=== PATIENT | female | born 1940 | race Caucasian/White ===

== ENCOUNTER 2025-07-24 09:00 | Outpatient (RCR) | payer MEDICARE, SELFPAY ==
[2025-05-27] VITALS (8 sets, daily range): BP systolic 129–150; BP diastolic 66–78; PULSE 73–100; RESP 16–20; TEMP 36.1–36.8; O2SAT 96–100
--- NOTE | 2025-05-27 15:50 | ONC.NURNOTE ---
Pt tolerated blood transfusion well, however once 1 hour monitoring after blood finished completed, pt began complaining of eye floaters. This would occur intermittently. Pt denies any eye problems in the past. BP slightly elevated SBP 140. Pt then observed for 30 min and recheck BP 150/69, HR 62. Pt states she feels okay. [employer] called and spoke to Apryl Cheema regarding symptoms. Pt is neurologically intact. Pt instructed to go to the ED this evening if symptoms worsen. Pt also instructed to call her opthalmologist if these symptoms persist. Pt and her daughter verbalized understanding of plan of care.
--- NOTE | 2025-06-15 08:52 | ONC.NURNOTE ---
Dx: normocytic anemia
[2025-06-25] VITALS (7 sets, daily range): BP systolic 123–151; BP diastolic 55–76; PULSE 75–81; RESP 16–18; TEMP 36.1–37.2; O2SAT 97–99
[2025-07-16] VITALS (7 sets, daily range): BP systolic 115–151; BP diastolic 65–83; PULSE 63–81; RESP 16–18; TEMP 35.8–36.6; O2SAT 96–100
[2025-07-16] MEDS: HEPARIN 500 UNIT/5 ML SYRINGE IVF (12:36)
[2025-07-16] MEDS: SODIUM CHLORIDE 0.9 % (FLUSH) 10 ML SYRINGE IVF (12:36)
[2025-07-23] MEDS: SODIUM CHLORIDE 0.9 % (FLUSH) 10 ML SYRINGE IVF (14:43)
[2025-07-23] MEDS: HEPARIN 500 UNIT/5 ML SYRINGE IVF (14:43)
[2025-07-24] VITALS (10 sets, daily range): BP systolic 115–154; BP diastolic 55–76; PULSE 70–96; RESP 16; TEMP 36.2–37.1; O2SAT 97–99
[2025-07-24] MEDS: 0.9 % SODIUM CHLORIDE 500 ML 250 ML IV (10:00)
[2025-07-24] MEDS: HEPARIN 500 UNIT/5 ML SYRINGE IVF (13:45)
[2025-07-24] MEDS: SODIUM CHLORIDE 0.9 % (FLUSH) 10 ML SYRINGE IVF (13:45)
== END 2025-11-22 23:59 | disposition home or self-care (01) ==
LOC: CCIC 09:00
PROVIDERS: PCP Family Medicine; Referring Provider Internal Medicine Hematology & Oncology; Visit Provider Clinical Nurse Specialist
DX: D64.9 Anemia, unspecified (principal)
CPT/HCPCS: 36415; 36430; 36591; 86850; 86900; 86901; 86922; J1642; J7030; P9016; P9073

== ENCOUNTER 2025-08-07 10:05 | Emergency (ER) | payer MEDICARE, SELFPAY ==
--- OUTSIDE RECORDS SUMMARY | 2025-07-02 07:43 | XMS_ITS | Encounter Summary ---
Author Organization [facility] Address [address] [place] [id number] Care Team Providers Care Needle Loom Weaver Name Role Phone Lara Colbert MD Primary Care Provider [phone] Lara Colbert MD Unavailable [phone] Henry Pratt MD Unavailable Henry Pratt MD Unavailable Reason for Referral * Therapeutic Imaging/IR (Priority: 1-2 Weeks) - Closed Specialty Diagnoses / Procedures Referred By Linda beltre Referred To Contact Radiology. Diagnoses Unclassifiable myelodysplastic syndrome (H) Procedures IR Chest Port Placement > 5 Yrs of Age IR Referral Ulysses Bahena MD [facility] [address] [facility] [address] [place] [address] Phone: tel: fax: [facility] [address] [place] [address] Phone: tel: fax: Referral ID Status Reason Start Date Expiration Date Visits Re quested Visits Authorized [id number] Closed 06/29/2025 06/29/2026 1 1 Reason for Visit * Auth/Cert Specialty Diagnoses / Procedures Referred By Contac t Referred To Contact Radiology. Diagnoses n/a Procedures IR Chest Port Placement > 5 Yrs of Age Mando Mosher MD [facility] [address] [place] [address] Phone: tel: fax: [facility] [address] [place] [address] Phone: tel: fax: Referral ID Status Reason Start Date Expiration Date Visits Re quested Visits Authorized [id number] Encounter Details Date Type Department Care Team (Late st Contact Info) Description 07/02/2025 7:43 AM CDT - 07/02/2025 9:49 AM CDT Hospital Encounter [facility] [address] [place] [address] aMndo Mosher MD [facility] [address] [facility] [address] [place] [address] Unclassifiable myelodysplastic syndrome (H) Discharge Disposition: Home or Self Care Social History Tobacco Use Types Packs/Day Years Used Date Smoking Tobacco: Never Passive Smoke Exposure: Never Smokeless Tobacco: Never Alcohol Use Standard Drinks/Week Comments Yes 0 (1 standard drink = 0.6 oz pur e alcohol) rarely AUDIT-C Answer Date Recorded Frequency of Alcohol Consumption Monthly or less 06/02/2019 Average Number of Drinks 1 or 2 019 Frequency of Binge Drinking Not on file 06/2019 Overall Financial Resource Strain (CARDIA) Answe r Date Recorded How hard is it for you to pa y for the very basics like food, housing, medical care, and heating? Not hard at all 12/08/2019 PHQ-2 Answer Date Recorded PHQ-2 Score 0 02/09/2025 Hunger Vital Sign Answer Date Recorded Within the past 12 months, y ou worried that your food would run out before you got the money to buy more. Never true 12/08/19 20 Within the past 12 months, t he food you bought just didn't last and you didn't have money to get more. Never true 12/08/2019 PRAPARE - Transportation Answer Date Re corded In the past 12 months, has l ack of transportation kept you from medical appointments or from getting medications? No 11/26 In the past 12 months, has l ack of transportation kept you from meetings, work, or from getting things needed for daily living? 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[employer] Gender Identity Not on file Sexual Orientation Not on file Occupation Industry Job Start Date Job End Date retired Not on file Not on file Not on file Not on file Not on file Not on file Not on file documented as of this encounter Last Filed Vital Signs Vital Sign Reading Time Taken Comments Blood Pressure 144/55 07/02/2025 9:44 AM CDT Pulse 82 07/02/2025 9:44 AM CDT Temperature 36.6 C (97.8 F) 07/02/2025 9:44 AM CDT Respiratory Rate 16 07/02/2025 9:44 AM CDT Oxygen Saturation 98% 07/02/2025 9:44 AM CDT Inhaled Oxygen Concentration - - Weight - - Height - - Body Mass Index - - documented in this encounter Discharge Instructions * Discharge Instructions* Cynthia Medel RN - 07/02/2025 8:03 AM CDT Going Home after Your Port Is Inserted Patient Name: Varsha Cui Today's Date: July 02, 2025 The doctor who inserted your port was: Dr. Dickinson at [facility]) Have your port site and/or neck wound checked on: Next appointment. Go to: Interventional Radiology Your port may be accessed right away. A nurse needs to flush your port every 30 days or after each use. When you get home: You should have an adult with you for the first 6 hours[address] or drinking alcohol until tomorrow. You may still have side effects from the medicine you received today (you may feel drowsy, unsteady or forgetful). You may go back to your regular diet today. If you take aspirin or Plavix, you may begin taking it again tomorrow. You may restart all other medicines today. Use pain medicine as directed. Avoid heavy lifting or the overuse of your shoulder for three days. Caring for the port site and/or neck wound: Keep the port site clean and dry. Cover the site with plastic before taking a shower. Do this untilthe site has healed. Keep the bandage on your port site for three days. Change it if it gets wet or dirty. After three days, you may use Band-Aids until the wound has healed. For a neck wound, leave the tape on for three days. You may cover it with a Band-Aid for comfort. If you have oozing or bleeding from the port site or from the cut in your neck: Put direct pressure on the wound for 5 to 10 minutes with a gauze pad. If you still have bleeding after 10 minutes, call your doctor. If you are bleeding a lot and can't control it with direct pressure, call 911. Call your doctor if you have: Bleeding from a wound after 10 minutes of direct pressure. Swelling in your neck or over your port site. Signs of infection: a fever over 100 F (37.8??C) under the tongue; the site is red, tender or draining. If you received IV medicine to sedate you: You were given: Versed and Fentanyl You may feel drowsy, forgetful or unsteady. For the next 24 hours, do not drive, drink alcohol or make any important decisions. documented in this encounter Medications at Time of Discharge acyclovir (ZOVIRAX) 400 MG tablet Take 400 mg by mouth 2 times daily. albuterol (PROAIR HFA/PROVENTIL HFA/VENTOLIN HFA) 108 (90 Base) MCG/ACT inhalerIndications:Shortn ess of breath Inhale 2 puffs into the lungs every 6 hours as needed for shortness of breath, wheezing or cough. 18 g 1 05/30/202 5 aspirin 81 MG EC tabletIndications:Other abnormal glucose Take 1 tablet (81 mg) by mouth daily 90 tablet 3 4 BIOTIN PO Take by mouth. blood glucose (CONTOUR NEXT TEST) test stripIndications:Type 2 diabetes mellitus without complication, without long-term current use of insulin (H) 1 strip by In Vitro route daily. Use to test blood sugar once times daily or as directed. 100 strip 3 5 blood glucose (NO BRAND SPECIFIED) lancets standardIndications:Type 2 diabetes mellitus without complication, without long-term current use of insulin (H) Use to test blood sugar 1 times daily or as directed. 100 each 3 2 Blood Glucose Monitoring Suppl (CONTOUR BLOOD GLUCOSE SYSTEM) w/Device KITIndications:Type 2 diabetes mellitus without complication, without long-term current use of insulin (H) 1 strip by In Vitro route daily 1 kit 9 calcium-vitamin D 500-125 MG-UNIT TABS Take 1 tablet by mouth daily fluticasone (FLOVENT HFA) 220 MCG/ACT inhalerIndications:Shortn ess of breath Inhale 1 puff into the lungs 2 times daily. 12 g 1 5 glucosamine-chondroitin 500-400 MG CAPS per capsule Take 1 capsule by mouth daily losartan (COZAAR) 25 MG tabletIndications:Dyspnea on exertion,Benign essential hypertension Take 1 tablet (25 mg) by mouth daily. 90 tablet 3 5 metFORMIN (GLUCOPHAGE) 500 MG tabletIndications:Type 2 diabetes mellitus without complication, without long-term current use of insulin (H) Take 1 tablet (500 mg) by mouth 2 times daily (with meals). 180 tablet 1 5 Multiple Vitamin (MULTI VITAMIN DAILY PO) Sennosides-Docusate Sodium (SENNA PLUS PO) Take by mouth. simvastatin (ZOCOR) 20 MG tabletIndications:Pure hypercholesterolemia TAKE 1/2 (ONE-HALF) TABLET BY MOUTH AT BEDTIME 45 tablet 1 5 documented as of this encounter Progress Notes * Alicia Gleason RN - 07/02/2025 9:49 AM CDT Post Procedure Summary: Prior to the start of the procedure and with procedural staff participation, I verbally confirmed the patient???s identity using two indicators, relevant allergies, that the procedure was appropriateand matched the consent or emergent situation, and that the correct equipment/implants were available. Immediately prior to starting the procedure I conducted the Time Out with the procedural staff and re-confirmed the patient???s name, procedure, and site/side. (The Joint Commission universal protocol was followed.) Yes Sedatives: Fentanyl and Midazolam (Versed) Vital signs, airway and pulse oximetry were monitored and remained stable throughout the procedure and sedation was maintained until the procedure was complete. The patient was monitored by staff until sedation discharge criteria were met. Patient tolerance: Patient tolerated the procedure well with no immediate complications. Time of sedation in minutes: 17 minutes from beginning to end of physician one to one monitoring. 1.5 mg versedn and 50 mcg fentanyl given * Kel Bassett ARRT - 07/02/2025 9:32 AM CDT Procedure Port Placement Versed 1.5 mg Fentanyl 50 mcg Sedation time 17 min Other meds 2g Ancef 1% Lidocaine 10 ml 1% Lido with Epi 10 ml Fluoro time 0.5 min AK 4 mGy documented in this encounter Miscellaneous Notes * IR Note - Mando Mosher MD - 07/02/2025 8:27 AM CDT Interventional Radiology Pre-Procedure Sedation Assessment Time of Assessment: 8:27 AM Expected Level: Moderate Sedation Indication: Sedation is required for the following type of Procedure: Venous Access Sedation and procedural consent: Risks, benefits and alternatives were discussed with Patient PO Intake: Appropriately NPO for procedure ASA Class: Class 2 - MILD SYSTEMIC DISEASE, NO ACUTE PROBLEMS, NO FUNCTIONAL LIMITATIONS. Mallampati: Grade 3: Soft palate visible, posterior pharyngeal wall not visible Lungs: Lungs Clear with good breath sounds bilaterally Heart: Normal heart sounds and rate History and physical reviewed and no updates needed. I have reviewed the lab findings, diagnostic data, medications, and the plan for sedation. I have determined this patient to be an appropriate candidate for the planned sedation and procedure and have reassessed the patient IMMEDIATELY PRIOR to sedation and procedure. Mando Mosher MD documented in this encounter Plan of Treatment Not on file documented as of this encounter Procedures Procedure Name Priority Date/Time Associated Diagnosis Comments IR CHEST PORT PLACEMENT > 5 YRS OF AGE Priority: 1-2 Weeks 07/02/2025 9:40 AM CDT Unclassifiable myelodysplastic syndrome (H) RBC AND PLATELET MORPHOLOGY STAT 07/02/2025 8:17 AM CDT CBC WITH PLATELETS (LIMITED OCCURRENCES) STAT 07/02/2025 8:17 AM CDT documented in this encounter Results * IR Chest Port Placement > 5 Yrs of Age (07/02/2025 9:40 AM CDT) Anatomical Region Laterality Modality Chest Radio Fluoroscop y, Radio Fluoroscopy 07/02/2025 9:40 AM CDT Impressions 07/02/2025 12:31 PM CDT IMPRESSION: Successful placement of right internal jugular Smart port and catheter. The port is ready for immediate use. Narrative 07/02/2025 12:31 PM CDT PORT PLACEMENT INDICATION: Chronic intravenous access required for drug infusion. LOCATION: Right internal jugular vein. PROCEDURE: Ultrasound was used to localize and document patency of the internal jugular vein. A permanent image of the vein was recorded. Local anesthesia was administered to the skin over the vein and a 4 mm incision was made. Ultrasound was used to place a 6F peel-away sheath in the vein using standard technique. Lidocaine was then administered in the subcutaneous tissue over the clavicle to a point about 5 cm below the midclavicle. A transverse 2 cm long incision was made at this point. Blunt dissection was carried out to create a small subcutaneous pocket cephalad to the incision. The 6F port catheter was brought through the tract between the two incisions and trimmed to appropriate length. The catheter was attached to the port and the port was brought into the pocket. The pocket was flushed with antibiotic solution. The catheter was then inserted into the superior vena cava through the jugular sheath. It was adjusted so that it lay well with no kinking. The port was flushed with heparinized solution. The port incision was closed with interrupted 3-0 Vicryl and Dermabond adhesive. The neck incision was closed with adhesive. Dressings were applied. Complications: None. Sedation: A moderate level of sedation was achieved with 1.5 mg midazolam 50 mcg fentanyl. Vital signs and sedation monitored by our nursing staff under my supervision. Sedation time: 17 minutes. Fluoroscopy time: 0.5 minutes. Air Kerma: 4 mGy. Contrast given: None. Local anesthetic: 10 mL of 1% lidocaine and 10 mL of 1% lidocaine with epinephrine administered without complication. FINDINGS: Fluoroscopic guidance with a permanent image confirmed the port catheter tip location is at the right atrial/SVC junction, confirmed with single spot fluoroscopic image. Procedure Note Mando Mosher MD - 07/02/2025 PORT PLACEMENT INDICATION: Chronic intravenous access required for drug infusion. LOCATION: Right internal jugular vein. PROCEDURE: Ultrasound was used to localize and document patency of theinternal jugular vein. A permanent image of the vein was recorded. Localanesthesia was administered to the skin over the vein and a 4 mm incisionwas made. Ultrasound was used to place a 6F peel-away sheath in the vein using standard technique. Lidocaine was then administered in the subcutaneous tissue over theclavicle to a point about 5 cm below the midclavicle. A transverse 2 cmlong incision was made at this point. Blunt dissection was carried out tocreate a small subcutaneous pocket cephalad to the incision. The 6F port catheter was brought through thetract between the two incisions and trimmed to appropriate length. Thecatheter was attached to the port and [facility] The pocket was flushed with antibiotic solution. The catheter was then inserted into the superior vena cava through thejugular sheath. It was adjusted so that it lay well with no kinking. Theport was flushed with heparinized solution. The port incision was closedwith interrupted 3-0 Vicryl and Dermabond adhesive. The neck incision was closed with adhesive.Dressings were applied. Complications: None. Sedation: A moderate level of sedation was achieved with 1.5 mg mcg fentanyl. Vital signs and sedation monitored by our nursing staff under mysupervision. Sedation time: 17 minutes. Fluoroscopy time: 0.5 minutes. Air Kerma: 4 mGy. Contrast given: None. Local anesthetic: 10 mL of 1% lidocaine and 10 mL of 1% lidocaine withepinephrine administered without complication. FINDINGS: Fluoroscopic guidance with a permanent image confirmed the portcatheter tip location is at the right atrial/SVC junction, confirmed withsingle spot fluoroscopic image. IMPRESSION: Successful placement of right internal jugular Smart port andcatheter. The port is ready for immediate use. Ulysses Bahena MD IMG IR ORDERABLES Final Re sult * (ABNORMAL) RBC and Platelet Morphology (07/02/2025 8:17 AM CDT) RBC Morphology Confirmed RBC Indices 07/02/2025 8:53 AM CDT [facility] Platelet Assessment Automated Count Confirmed. Platelet morphology is normal. Automated Count Confirmed. Platelet morphology is normal. TAMMI 07/02/2025 8:53 AM CDT [facility] Elliptocytes Slight(A) None Seen TAMMI 07/02/2025 8:53 AM CDT [facility] Teardrop Cells Slight(A) None Seen TAMMI 07/02/2025 8:53 AM CDT [facility] Blood BLOOD SPECIMEN / Unknown Venipuncture / Unknown 07/02/2025 8:17 AM CDT 07/02/2025 8:21 AM CDT Lisa Cazares [facility] [employer] TENDER SENIOR MEDIA DIRECTOR LAB - BLOOD OR DERABLES Final Result [facility] [address] [facility] Lab (1st floor, no room number) [place] [address], [facility] * (ABNORMAL) CBC with Platelets (Limited Occurrences) (07/02/2025 8:17 AM CDT) WBC Count 2.1(L) 4.0 - 11.0 10e3/uL 07/02/2025 8:53 AM CDT [facility] RBC Count 3.36(L) 3.80 - 5.20 10e6/uL 07/02/2025 8:53 AM CDT [facility] Hemoglobin 8.3(L) 11.7 - 15.7 g/dL 07/02/2025 8:53 AM CDT [facility] Hematocrit 25.9(L) 35.0 - 47.0 % 07/02/2025 8:53 AM CDT [facility] MCV 77(L) 78 - 100 fL 07/02/2025 8:53 AM CDT [facility] MCH 24.7(L) 26.5 - 33.0 pg 07/02/2025 8:53 AM CDT [facility] MCHC 32.0 31.5 - 36.5 g/dL 07/02/2025 8:53 AM CDT [facility] RDW 07/02/2025 8:53 AM CDT [facility] Comment:Dimorphic Population -Unable to Calculate Platelet Count 112(L) 150 - 450 10e3/uL 07/02/2025 8:53 AM CDT [facility] Blood BLOOD SPECIMEN / Unknown Venipuncture / Unknown 07/02/2025 8:17 AM CDT 07/02/2025 8:21 AM CDT [facility] [employer] TENDER SENIOR MEDIA DIRECTOR LAB - BLOOD OR DERABLES Final Result LABORATORY [facility] [address] Lab (1st floor, no room number) [place] [address], [facility] documented in this encounter Visit Diagnoses Diagnosis Unclassifiable myelodysplastic syndrome (H) documented in this encounter Administered Medications Inactive Administered Medications - up to 3 most recent administrations Medication Order MAR Action Action Date Dose Rate Site acetaminophen (TYLENOL) tablet 650 mg 650 mg, Oral, ONCE PRN, mild pain, Starting on Lucrecia 07/02/25 at 0942, Maximum acetaminophen dose from all sources = 75 mg/kg/day not to exceed 4 grams/day. ceFAZolin (ANCEF) 2 g in dextrose 50 mL intermittent infusion Routine, 2 g, Intravenous, PRE-OP/PRE-PROCEDURE, Starting on Lucrecia 07/02/25 at 0814, For 1 dose, Give dose within 1 hour PRIOR to procedure. If patient weight is greater than or equal to 120 kg change dose to 3 g., Indications: Perioperative Pharmacoprophylaxis, IR Pre-procedureIndications:Perioperat delma Pharmacoprophylaxis $New Bag 07/02/2025 8:52 AM CDT 2 g fentaNYL (PF) (SUBLIMAZE) injection 25-50 mcg 25-50 mcg, Intravenous, EVERY 5 MIN PRN, severe pain, If inadequate response may repeat 25 mcg IV slowly every 5 min PRN severe pain; when verbally requested by provider., Administer over 2 Minutes, Starting on [facility] 07/02/25 at 0814, Doses can be exceeded under direct oversight of patient by physician., IR Intra-procedure fentaNYL (PF) (SUBLIMAZE) injection 25-50 mcg 25-50 mcg, Intravenous, EVERY 5 MIN PRN, severe pain, If inadequate response may repeat 25 mcg IV slowly every 5 min PRN severe pain; when verbally requested by provider., Administer over 2 Minutes, Starting on [facility] 07/02/25 at 0828, Doses can be exceeded under direct oversight of patient by physician., IR Intra-procedure $Given 07/02/2025 9:20 AM CDT 25 mcg $Given 07/02/2025 9:16 AM CDT 25 mcg flumazenil (ROMAZICON) injection 0.2 mg 0.2 mg, Intravenous, EVERY 1 MIN PRN, benzodiazepine reversal, If inadequate response after 45 seconds, may repeat 0.2 mg IV every 1 minute PRN oversedation., Administer over 1 Minutes, Starting on [facility] 07/02/25 at 0814, Give over 15 seconds. Maximum total dose of 1 mg. Continue monitoring until discharge criteria met for a minimum of 2 hours. Use with caution in patients on benzodiazepine therapy., IR Intra-procedure flumazenil (ROMAZICON) injection 0.2 mg 0.2 mg, Intravenous, EVERY 1 MIN PRN, benzodiazepine reversal, If inadequate response after 45 seconds, may repeat 0.2 mg IV every 1 minute PRN oversedation., Administer over 1 Minutes, Starting on [facility] 07/02/25 at 0828, Give over 15 seconds. Maximum total dose of 1 mg. Continue monitoring until discharge criteria met for a minimum of 2 hours. Use with caution in patients on benzodiazepine therapy., IR Intra-procedure lidocaine 1 % 1-30 mL 1-30 mL, Intradermal, ONCE PRN, local anesthetic. When verbally ordered by prescriber during the procedure., Starting on Lucrecia 07/02/25 at 0814, For 1 dose, Dose to be divided into smaller volumes appropriate for the procedure. Provider to administer intradermally., IR Intra-procedure $Given 07/02/2025 9:31 AM CDT 10 mLs lidocaine 1 % 1-30 mL 1-30 mL, Intradermal, ONCE PRN, local anesthetic. When verbally ordered by prescriber during the procedure., Starting on Lucrecia 07/02/25 at 0828, For 1 dose, Dose to be divided into smaller volumes appropriate for the procedure. Provider to administer intradermally., IR Intra-procedure lidocaine 1% with EPINEPHrine 1:100,000 injection PRN, Starting on [facility] 07/02/25 at 0931, Anesthesia Intra-op $Given 07/02/2025 9:31 AM CDT 10 mLs midazolam (VERSED) injection 0.5-2 mg 0.5-2 mg, Intravenous, Administer over 1 Minutes, EVERY 4 MIN PRN, sedation, If inadequate response may repeat 0.5 mg IV slowly every 4 minutes PRN sedation until desired response; when verbally requested by provider., Starting on [facility]crecia 07/02/25 at 0814, Doses can be exceeded under direct oversight of patient by physician. This drug may cause significant respiratory depression. Monitor respiratory status and vital signs carefully for 1 hour after each dose., IR Intra-procedure midazolam (VERSED) injection 0.5-2 mg 0.5-2 mg, Intravenous, Administer over 1 Minutes, EVERY 4 MIN PRN, sedation, If inadequate response may repeat 0.5 mg IV slowly every 4 minutes PRN sedation until desired response; when verbally requested by provider., Starting on Lucrecia 07/02/25 at 0828, Doses can be exceeded under direct oversight of patient by physician. This drug may cause significant respiratory depression. Monitor respiratory status and vital signs carefully for 1 hour after each dose., IR Intra-procedure $Given 07/02/2025 9:16 AM CDT 1.5 mg naloxone (NARCAN) injection 0.2 mg 0.2 mg, Intravenous, EVERY 2 MIN PRN, opioid reversal, Starting on [facility] 07/02/25 at 0814, Administer intravenous route when available and notify provider when administered. For unintended sedation or respiratory depression if all of the below criteria are met: ~ respiratory rate LESS than or EQUAL to 8. ~SaO2 less than 92% and or/end-tidal CO2 is greater than 50. ~ the patient is receiving an opioid, has unintended sedations assessed as RASS (-3), and is currently not on mechanical ventilation. RASS scale moderate (-3) is movement or eye opening to voice but no eye contact. Patient Monitoring Once the patient has demonstrated a response to the naloxone, continue to monitor respiratory rate, depth, oxygen saturation and end-tidal CO2 (if available) every 15 minutes x 2, then every 30 minutes x 2, then every 1 hour x 1 after each naloxone dose. Consider transfer to ICU if patient respiratory parameters have not improved after 4 naloxone doses., IR Intra-procedure naloxone (NARCAN) injection 0.2 mg 0.2 mg, Intramuscular, EVERY 2 MIN PRN, opioid reversal, Starting on [facility]crecia 07/02/25 at 0814, Administer intramuscular if an intravenous route is not available and notify provider when administered. For unintended sedation or respiratory depression if all of the below criteria are met: ~ respiratory rate LESS than or EQUAL to 8. ~SaO2 less than 92% and or/end-tidal CO2 is greater than 50. ~ the patient is receiving an opioid, has unintended sedations assessed as RASS (-3), and is currently not on mechanical ventilation. RASS scale moderate (-3) is movement or eye opening to voice but no eye contact. Patient Monitoring Once the patient has demonstrated a response to the naloxone, continue to monitor respiratory rate, depth, oxygen saturation and end-tidal CO2 (if available) every 15 minutes x 2, then every 30 minutes x 2, then every 1 hour x 1 after each naloxone dose. Consider transfer to ICU if patient respiratory parameters have not improved after 4 naloxone doses., IR Intra-procedure naloxone (NARCAN) injection 0.2 mg 0.2 mg, Intravenous, EVERY 2 MIN PRN, opioid reversal, Starting on [facility] 07/02/25 at 0828, Administer intravenous route when available and notify provider when administered. For unintended sedation or respiratory depression if all of the below criteria are met: ~ respiratory rate LESS than or EQUAL to 8. ~SaO2 less than 92% and or/end-tidal CO2 is greater than 50. ~ the patient is receiving an opioid, has unintended sedations assessed as RASS (-3), and is currently not on mechanical ventilation. RASS scale moderate (-3) is movement or eye opening to voice but no eye contact. Patient Monitoring Once the patient has demonstrated a response to the naloxone, continue to monitor respiratory rate, depth, oxygen saturation and end-tidal CO2 (if available) every 15 minutes x 2, then every 30 minutes x 2, then every 1 hour x 1 after each naloxone dose. Consider transfer to ICU if patient respiratory parameters have not improved after 4 naloxone doses., IR Intra-procedure naloxone (NARCAN) injection 0.2 mg 0.2 mg, Intramuscular, EVERY 2 MIN PRN, opioid reversal, Starting on [facility] 07/02/25 at 0828, Administer intramuscular if an intravenous route is not available and notify provider when administered. For unintended sedation or respiratory depression if all of the below criteria are met: ~ respiratory rate LESS than or EQUAL to 8. ~SaO2 less than 92% and or/end-tidal CO2 is greater than 50. ~ the patient is receiving an opioid, has unintended sedations assessed as RASS (-3), and is currently not on mechanical ventilation. RASS scale moderate (-3) is movement or eye opening to voice but no eye contact. Patient Monitoring Once the patient has demonstrated a response to the naloxone, continue to monitor respiratory rate, depth, oxygen saturation and end-tidal CO2 (if available) every 15 minutes x 2, then every 30 minutes x 2, then every 1 hour x 1 after each naloxone dose. Consider transfer to ICU if patient respiratory parameters have not improved after 4 naloxone doses., IR Intra-procedure naloxone (NARCAN) injection 0.4 mg 0.4 mg, Intravenous, EVERY 2 MIN PRN, opioid reversal, Starting on [facility] 07/02/25 at 0814, Administer intravenous route when available and notify provider when administered. For unintended sedation or respiratory depression if all of the below criteria are met: ~ respiratory rate LESS than or EQUAL to 8. ~ SaO2 less than 92% and or/end-tidal CO2 is greater than 50. ~ the patient is receiving an opioid, has unintended sedation assessed as RASS (-4) or (-5) and patient is currently not on mechanical ventilation. RASS scale (-4) is deep sedation with no response to voice but movement or eye opening to physical stimulation. RASS scale (-5) is unarousable. Patient Monitoring Once the patient has demonstrated a response to the naloxone, continue to monitor respiratory rate, depth, oxygen saturation and end-tidal CO2 (if available) every 15 minutes x 2, then every 30 minutes x 2, then every 1 hour x 1 after each naloxone dose. Consider transfer to ICU if patient respiratory parameters have not improved after 4 naloxone doses., IR Intra-procedure naloxone (NARCAN) injection 0.4 mg 0.4 mg, Intramuscular, EVERY 2 MIN PRN, opioid reversal, Starting on [facility] 07/02/25 at 0814, Administer intramuscular if an intravenous route is not available and notify provider when administered. For unintended sedation or respiratory depression if all of the below criteria are met: ~ respiratory rate LESS than or EQUAL to 8. ~ SaO2 less than 92% and or/end-tidal CO2 is greater than 50. ~ the patient is receiving an opioid, has unintended sedation assessed as RASS (-4) or (-5) and patient is currently not on mechanical ventilation. RASS scale (-4) is deep sedation with no response to voice but movement or eye opening to physical stimulation. RASS scale (-5) is unarousable. Patient Monitoring Once the patient has demonstrated a response to the naloxone, continue to monitor respiratory rate, depth, oxygen saturation and end-tidal CO2 (if available) every 15 minutes x 2, then every 30 minutes x 2, then every 1 hour x 1 after each naloxone dose. Consider transfer to ICU if patient respiratory parameters have not improved after 4 naloxone doses., IR Intra-procedure naloxone (NARCAN) injection 0.4 mg 0.4 mg, Intravenous, EVERY 2 MIN PRN, opioid reversal, Starting on [facility] 07/02/25 at 0828, Administer intravenous route when available and notify provider when administered. For unintended sedation or respiratory depression if all of the below criteria are met: ~ respiratory rate LESS than or EQUAL to 8. ~ SaO2 less than 92% and or/end-tidal CO2 is greater than 50. ~ the patient is receiving an opioid, has unintended sedation assessed as RASS (-4) or (-5) and patient is currently not on mechanical ventilation. RASS scale (-4) is deep sedation with no response to voice but movement or eye opening to physical stimulation. RASS scale (-5) is unarousable. Patient Monitoring Once the patient has demonstrated a response to the naloxone, continue to monitor respiratory rate, depth, oxygen saturation and end-tidal CO2 (if available) every 15 minutes x 2, then every 30 minutes x 2, then every 1 hour x 1 after each naloxone dose. Consider transfer to ICU if patient respiratory parameters have not improved after 4 naloxone doses., IR Intra-procedure naloxone (NARCAN) injection 0.4 mg 0.4 mg, Intramuscular, EVERY 2 MIN PRN, opioid reversal, Starting on [facility] 07/02/25 at 0828, Administer intramuscular if an intravenous route is not available and notify provider when administered. For unintended sedation or respiratory depression if all of the below criteria are met: ~ respiratory rate LESS than or EQUAL to 8. ~ SaO2 less than 92% and or/end-tidal CO2 is greater than 50. ~ the patient is receiving an opioid, has unintended sedation assessed as RASS (-4) or (-5) and patient is currently not on mechanical ventilation. RASS scale (-4) is deep sedation with no response to voice but movement or eye opening to physical stimulation. RASS scale (-5) is unarousable. Patient Monitoring Once the patient has demonstrated a response to the naloxone, continue to monitor respiratory rate, depth, oxygen saturation and end-tidal CO2 (if available) every 15 minutes x 2, then every 30 minutes x 2, then every 1 hour x 1 after each naloxone dose. Consider transfer to ICU if patient respiratory parameters have not improved after 4 naloxone doses., IR Intra-procedure ondansetron (ZOFRAN) injection 4 mg 4 mg, Intravenous, ONCE PRN, nausea/vomiting - 1st line, Administer over 2-5 Minutes, Starting on [facility] 07/02/25 at 0828, For 1 dose, IR Intra-procedure sodium chloride (PF) 0.9% PF flush 3 mL 3 mL, Intracatheter, EVERY 8 HOURS SCHEDULED, First dose on [facility] 07/02/25 at 1400, to lock peripheral IV dormant line, IR Pre-procedure sodium chloride (PF) 0.9% PF flush 3 mL 3 mL, Intracatheter, EVERY 1 MIN PRN, line flush, other, to ensure patency or to lock dormant line, Starting on [facility] 07/02/25 at 0814, IR Pre-procedure documented in this encounter Active and Recently Administered Medications Times are shown in CDT. Scheduled Medication Order 06/30/2025 07/01/2025 07/02/2025 ceFAZolin (ANCEF) 2 g in dextrose 50 mL intermittent infusion (COMPLETED) Routine, 2 g, Intravenous, PRE-OP/PRE-PROCEDURE, Starting on [facility] 07/02/25 at 0814, For 1 dose, Give dose within 1 hour PRIOR to procedure. If patient weight is greater than or equal to 120 kg change dose to 3 g., Indications: Perioperative Pharmacoprophylaxis, IR Pre-procedure 0852 ($New Bag - Pro vider: Alicia Gleason RN) heparin lock flush 100 unit/mL injection 5 mL 5 mL, Intracatheter, ONCE, On [facility] 07/02/25 at 0930, For 1 dose, [place] [facility]OCK - IR 0930 (Canceled Entry - Provider: Orders Generic Provider - Comment: Automatically canceled at discontinue of medication order) sodium chloride (PF) 0.9% PF flush 3 mL 3 mL, Intracatheter, EVERY 8 HOURS SCHEDULED, First dose on [facility] 07/02/25 at 1400, to lock peripheral IV dormant line, IR Pre-procedure 1400 (Canceled Entry - Provider: Orders Generic Provider - Comment: Automatically canceled at discontinue of medication order)2200 (Canceled Entry - Provider: Orders Generic Provider - Comment: Automatically canceled at discontinue of medication order) PRN Medication Order 06/30/2025 07/01/2025 07/02/2025 acetaminophen (TYLENOL) tablet 650 mg 650 mg, Oral, ONCE PRN, mild pain, Starting on [facility] 07/02/25 at 0942, Maximum acetaminophen dose from all sources = 75 mg/kg/day not to exceed 4 grams/day. fentaNYL (PF) (SUBLIMAZE) injection 25-50 mcg 25-50 mcg, Intravenous, EVERY 5 MIN PRN, severe pain, If inadequate response may repeat 25 mcg IV slowly every 5 min PRN severe pain; when verbally requested by provider., Administer over 2 Minutes, Starting on [facility] 07/02/25 at 0814, Doses can be exceeded under direct oversight of patient by physician., IR Intra-procedure fentaNYL (PF) (SUBLIMAZE) injection 25-50 mcg 25-50 mcg, Intravenous, EVERY 5 MIN PRN, severe pain, If inadequate response may repeat 25 mcg IV slowly every 5 min PRN severe pain; when verbally requested by provider., Administer over 2 Minutes, Starting on [facility] 07/02/25 at 0828, Doses can be exceeded under direct oversight of patient by physician., IR Intra-procedure 0916 ($Given - Provi afshan: Alicia Gleason RN)0920 ($Given - Provider: Alicia Gleason RN) flumazenil (ROMAZICON) injection 0.2 mg 0.2 mg, Intravenous, EVERY 1 MIN PRN, benzodiazepine reversal, If inadequate response after 45 seconds, may repeat 0.2 mg IV every 1 minute PRN oversedation., Administer over 1 Minutes, Starting on [facility] 07/02/25 at 0814, Give over 15 seconds. Maximum total dose of 1 mg. Continue monitoring until discharge criteria met for a minimum of 2 hours. Use with caution in patients on benzodiazepine therapy., IR Intra-procedure flumazenil (ROMAZICON) injection 0.2 mg 0.2 mg, Intravenous, EVERY 1 MIN PRN, benzodiazepine reversal, If inadequate response after 45 seconds, may repeat 0.2 mg IV every 1 minute PRN oversedation., Administer over 1 Minutes, Starting on [facility] 07/02/25 at 0828, Give over 15 seconds. Maximum total dose of 1 mg. Continue monitoring until discharge criteria met for a minimum of 2 hours. Use with caution in patients on benzodiazepine therapy., IR Intra-procedure lidocaine 1 % 1-30 mL (COMPLETED) 1-30 mL, Intradermal, ONCE PRN, local anesthetic. When verbally ordered by prescriber during the procedure., Starting on [facility] 07/02/25 at 0814, For 1 dose, Dose to be divided into smaller volumes appropriate for the procedure. Provider to administer intradermally., IR Intra-procedure 0931 ($Given - Provi afshan: Alicia Gleason RN) lidocaine 1 % 1-30 mL 1-30 mL, Intradermal, ONCE PRN, local anesthetic. When verbally ordered by prescriber during the procedure., Starting on [facility] 07/02/25 at 0828, For 1 dose, Dose to be divided into smaller volumes appropriate for the procedure. Provider to administer intradermally., IR Intra-procedure lidocaine 1% with EPINEPHrine 1:100,000 injection PRN, Starting on [facility] 07/02/25 at 0931, Anesthesia Intra-op 0931 ($Given - Provi afshan: Mando Mosher MD - Comment: chest wall and neck right side) midazolam (VERSED) injection 0.5-2 mg 0.5-2 mg, Intravenous, Administer over 1 Minutes, EVERY 4 MIN PRN, sedation, If inadequate response may repeat 0.5 mg IV slowly every 4 minutes PRN sedation until desired response; when verbally requested by provider., Starting on [facility] 07/02/25 at 0814, Doses can be exceeded under direct oversight of patient by physician. This drug may cause significant respiratory depression. Monitor respiratory status and vital signs carefully for 1 hour after each dose., IR Intra-procedure midazolam (VERSED) injection 0.5-2 mg 0.5-2 mg, Intravenous, Administer over 1 Minutes, EVERY 4 MIN PRN, sedation, If inadequate response may repeat 0.5 mg IV slowly every 4 minutes PRN sedation until desired response; when verbally requested by provider., Starting on [facility] 07/02/25 at 0828, Doses can be exceeded under direct oversight of patient by physician. This drug may cause significant respiratory depression. Monitor respiratory status and vital signs carefully for 1 hour after each dose., IR Intra-procedure 0916 ($Given - Provi afshan: Alicia Gleason RN) naloxone (NARCAN) injection 0.2 mg(Linked Group 1) 0.2 mg, Intravenous, EVERY 2 MIN PRN, opioid reversal, Starting on [facility] 07/02/25 at 0814, Administer intravenous route when available and notify provider when administered. For unintended sedation or respiratory depression if all of the below criteria are met: ~ respiratory rate LESS than or EQUAL to 8. ~SaO2 less than 92% and or/end-tidal CO2 is greater than 50. ~ the patient is receiving an opioid, has unintended sedations assessed as RASS (-3), and is currently not on mechanical ventilation. RASS scale moderate (-3) is movement or eye opening to voice but no eye contact. Patient Monitoring Once the patient has demonstrated a response to the naloxone, continue to monitor respiratory rate, depth, oxygen saturation and end-tidal CO2 (if available) every 15 minutes x 2, then every 30 minutes x 2, then every 1 hour x 1 after each naloxone dose. Consider transfer to ICU if patient respiratory parameters have not improved after 4 naloxone doses., IR Intra-procedure naloxone (NARCAN) injection 0.2 mg(Linked Group 1) 0.2 mg, Intramuscular, EVERY 2 MIN PRN, opioid reversal, Starting on [facility] 07/02/25 at 0814, Administer intramuscular if an intravenous route is not available and notify provider when administered. For unintended sedation or respiratory depression if all of the below criteria are met: ~ respiratory rate LESS than or EQUAL to 8. ~SaO2 less than 92% and or/end-tidal CO2 is greater than 50. ~ the patient is receiving an opioid, has unintended sedations assessed as RASS (-3), and is currently not on mechanical ventilation. RASS scale moderate (-3) is movement or eye opening to voice but no eye contact. Patient Monitoring Once the patient has demonstrated a response to the naloxone, continue to monitor respiratory rate, depth, oxygen saturation and end-tidal CO2 (if available) every 15 minutes x 2, then every 30 minutes x 2, then every 1 hour x 1 after each naloxone dose. Consider transfer to ICU if patient respiratory parameters have not improved after 4 naloxone doses., IR Intra-procedure naloxone (NARCAN) injection 0.2 mg(Linked Group 2) 0.2 mg, Intravenous, EVERY 2 MIN PRN, opioid reversal, Starting on [facility] 07/02/25 at 0828, Administer intravenous route when available and notify provider when administered. For unintended sedation or respiratory depression if all of the below criteria are met: ~ respiratory rate LESS than or EQUAL to 8. ~SaO2 less than 92% and or/end-tidal CO2 is greater than 50. ~ the patient is receiving an opioid, has unintended sedations assessed as RASS (-3), and is currently not on mechanical ventilation. RASS scale moderate (-3) is movement or eye opening to voice but no eye contact. Patient Monitoring Once the patient has demonstrated a response to the naloxone, continue to monitor respiratory rate, depth, oxygen saturation and end-tidal CO2 (if available) every 15 minutes x 2, then every 30 minutes x 2, then every 1 hour x 1 after each naloxone dose. Consider transfer to ICU if patient respiratory parameters have not improved after 4 naloxone doses., IR Intra-procedure naloxone (NARCAN) injection 0.2 mg(Linked Group 2) 0.2 mg, Intramuscular, EVERY 2 MIN PRN, opioid reversal, Starting on [facility] 07/02/25 at 0828, Administer intramuscular if an intravenous route is not available and notify provider when administered. For unintended sedation or respiratory depression if all of the below criteria are met: ~ respiratory rate LESS than or EQUAL to 8. ~SaO2 less than 92% and or/end-tidal CO2 is greater than 50. ~ the patient is receiving an opioid, has unintended sedations assessed as RASS (-3), and is currently not on mechanical ventilation. RASS scale moderate (-3) is movement or eye opening to voice but no eye contact. Patient Monitoring Once the patient has demonstrated a response to the naloxone, continue to monitor respiratory rate, depth, oxygen saturation and end-tidal CO2 (if available) every 15 minutes x 2, then every 30 minutes x 2, then every 1 hour x 1 after each naloxone dose. Consider transfer to ICU if patient respiratory parameters have not improved after 4 naloxone doses., IR Intra-procedure naloxone (NARCAN) injection 0.4 mg(Linked Group 1) 0.4 mg, Intravenous, EVERY 2 MIN PRN, opioid reversal, Starting on [facility] 07/02/25 at 0814, Administer intravenous route when available and notify provider when administered. For unintended sedation or respiratory depression if all of the below criteria are met: ~ respiratory rate LESS than or EQUAL to 8. ~ SaO2 less than 92% and or/end-tidal CO2 is greater than 50. ~ the patient is receiving an opioid, has unintended sedation assessed as RASS (-4) or (-5) and patient is currently not on mechanical ventilation. RASS scale (-4) is deep sedation with no response to voice but movement or eye opening to physical stimulation. RASS scale (-5) is unarousable. Patient Monitoring Once the patient has demonstrated a response to the naloxone, continue to monitor respiratory rate, depth, oxygen saturation and end-tidal CO2 (if available) every 15 minutes x 2, then every 30 minutes x 2, then every 1 hour x 1 after each naloxone dose. Consider transfer to ICU if patient respiratory parameters have not improved after 4 naloxone doses., IR Intra-procedure naloxone (NARCAN) injection 0.4 mg(Linked Group 1) 0.4 mg, Intramuscular, EVERY 2 MIN PRN, opioid reversal, Starting on [facility] 07/02/25 at 0814, Administer intramuscular if an intravenous route is not available and notify provider when administered. For unintended sedation or respiratory depression if all of the below criteria are met: ~ respiratory rate LESS than or EQUAL to 8. ~ SaO2 less than 92% and or/end-tidal CO2 is greater than 50. ~ the patient is receiving an opioid, has unintended sedation assessed as RASS (-4) or (-5) and patient is currently not on mechanical ventilation. RASS scale (-4) is deep sedation with no response to voice but movement or eye opening to physical stimulation. RASS scale (-5) is unarousable. Patient Monitoring Once the patient has demonstrated a response to the naloxone, continue to monitor respiratory rate, depth, oxygen saturation and end-tidal CO2 (if available) every 15 minutes x 2, then every 30 minutes x 2, then every 1 hour x 1 after each naloxone dose. Consider transfer to ICU if patient respiratory parameters have not improved after 4 naloxone doses., IR Intra-procedure naloxone (NARCAN) injection 0.4 mg(Linked Group 2) 0.4 mg, Intravenous, EVERY 2 MIN PRN, opioid reversal, Starting on [facility] 07/02/25 at 0828, Administer intravenous route when available and notify provider when administered. For unintended sedation or respiratory depression if all of the below criteria are met: ~ respiratory rate LESS than or EQUAL to 8. ~ SaO2 less than 92% and or/end-tidal CO2 is greater than 50. ~ the patient is receiving an opioid, has unintended sedation assessed as RASS (-4) or (-5) and patient is currently not on mechanical ventilation. RASS scale (-4) is deep sedation with no response to voice but movement or eye opening to physical stimulation. RASS scale (-5) is unarousable. Patient Monitoring Once the patient has demonstrated a response to the naloxone, continue to monitor respiratory rate, depth, oxygen saturation and end-tidal CO2 (if available) every 15 minutes x 2, then every 30 minutes x 2, then every 1 hour x 1 after each naloxone dose. Consider transfer to ICU if patient respiratory parameters have not improved after 4 naloxone doses., IR Intra-procedure naloxone (NARCAN) injection 0.4 mg(Linked Group 2) 0.4 mg, Intramuscular, EVERY 2 MIN PRN, opioid reversal, Starting on [facility] 07/02/25 at 0828, Administer intramuscular if an intravenous route is not available and notify provider when administered. For unintended sedation or respiratory depression if all of the below criteria are met: ~ respiratory rate LESS than or EQUAL to 8. ~ SaO2 less than 92% and or/end-tidal CO2 is greater than 50. ~ the patient is receiving an opioid, has unintended sedation assessed as RASS (-4) or (-5) and patient is currently not on mechanical ventilation. RASS scale (-4) is deep sedation with no response to voice but movement or eye opening to physical stimulation. RASS scale (-5) is unarousable. Patient Monitoring Once the patient has demonstrated a response to the naloxone, continue to monitor respiratory rate, depth, oxygen saturation and end-tidal CO2 (if available) every 15 minutes x 2, then every 30 minutes x 2, then every 1 hour x 1 after each naloxone dose. Consider transfer to ICU if patient respiratory parameters have not improved after 4 naloxone doses., IR Intra-procedure ondansetron (ZOFRAN) injection 4 mg 4 mg, Intravenous, ONCE PRN, nausea/vomiting - 1st line, Administer over 2-5 Minutes, Starting on [facility] 07/02/25 at 0828, For 1 dose, IR Intra-procedure sodium chloride (PF) 0.9% PF flush 3 mL 3 mL, Intracatheter, EVERY 1 MIN PRN, line flush, other, to ensure patency or to lock dormant line, Starting on [facility] 07/02/25 at 0814, IR Pre-procedure Linked Groups Order Group 1: naloxone (NARCAN) injection 0.2 mgJump to med 0.2 mg, Intravenous, EVERY 2 MIN PRN, opioid reversal, Starting on [facility] 07/02/25 at 0814, Administer intravenous route when available and notify provider when administered. For unintended sedation or respiratory depression if all of the below criteria are met: ~ respiratory rate LESS than or EQUAL to 8. ~SaO2 less than 92% and or/end-tidal CO2 is greater than 50. ~ the patient is receiving an opioid, has unintended sedations assessed as RASS (-3), and is currently not on mechanical ventilation. RASS scale moderate (-3) is movement or eye opening to voice but no eye contact. Patient Monitoring Once the patient has demonstrated a response to the naloxone, continue to monitor respiratory rate, depth, oxygen saturation and end-tidal CO2 (if available) every 15 minutes x 2, then every 30 minutes x 2, then every 1 hour x 1 after each naloxone dose. Consider transfer to ICU if patient respiratory parameters have not improved after 4 naloxone doses., IR Intra- procedure Or naloxone (NARCAN) injection 0.4 mgJump to med 0.4 mg, Intravenous, EVERY 2 MIN PRN, opioid reversal, Starting on [facility] 07/02/25 at 0814, Administer intravenous route when available and notify provider when administered. For unintended sedation or respiratory depression if all of the below criteria are met: ~ respiratory rate LESS than or EQUAL to 8. ~ SaO2 less than 92% and or/end-tidal CO2 is greater than 50. ~ the patient is receiving an opioid, has unintended sedation assessed as RASS (-4) or (-5) and patient is currently not on mechanical ventilation. RASS scale (-4) is deep sedation with no response to voice but movement or eye opening to physical stimulation. RASS scale (-5) is unarousable. Patient Monitoring Once the patient has demonstrated a response to the naloxone, continue to monitor respiratory rate, depth, oxygen saturation and end-tidal CO2 (if available) every 15 minutes x 2, then every 30 minutes x 2, then every 1 hour x 1 after each naloxone dose. Consider transfer to ICU if patient respiratory parameters have not improved after 4 naloxone doses., IR Intra-procedure Or naloxone (NARCAN) injection 0.2 mgJump to med 0.2 mg, Intramuscular, EVERY 2 MIN PRN, opioid reversal, Starting on [facility] 07/02/25 at 0814, Administer intramuscular if an intravenous route is not available and notify provider when administered. For unintended sedation or respiratory depression if all of the below criteria are met: ~ respiratory rate LESS than or EQUAL to 8. ~SaO2 less than 92% and or/end-tidal CO2 is greater than 50. ~ the patient is receiving an opioid, has unintended sedations assessed as RASS (-3), and is currently not on mechanical ventilation. RASS scale moderate (-3) is movement or eye opening to voice but no eye contact. Patient Monitoring Once the patient has demonstrated a response to the naloxone, continue to monitor respiratory rate, depth, oxygen saturation and end-tidal CO2 (if available) every 15 minutes x 2, then every 30 minutes x 2, then every 1 hour x 1 after each naloxone dose. Consider transfer to ICU if patient respiratory parameters have not improved after 4 naloxone doses., IR Intra- procedure Or naloxone (NARCAN) injection 0.4 mgJump to med 0.4 mg, Intramuscular, EVERY 2 MIN PRN, opioid reversal, Starting on Lucrecia 07/02/25 at 0814, Administer intramuscular if an intravenous route is not available and notify provider when administered. For unintended sedation or respiratory depression if all of the below criteria are met: ~ respiratory rate LESS than or EQUAL to 8. ~ SaO2 less than 92% and or/end-tidal CO2 is greater than 50. ~ the patient is receiving an opioid, has unintended sedation assessed as RASS (-4) or (-5) and patient is currently not on mechanical ventilation. RASS scale (-4) is deep sedation with no response to voice but movement or eye opening to physical stimulation. RASS scale (-5) is unarousable. Patient Monitoring Once the patient has demonstrated a response to the naloxone, continue to monitor respiratory rate, depth, oxygen saturation and end-tidal CO2 (if available) every 15 minutes x 2, then every 30 minutes x 2, then every 1 hour x 1 after each naloxone dose. Consider transfer to ICU if patient respiratory parameters have not improved after 4 naloxone doses., IR Intra- procedure Group 2: naloxone (NARCAN) injection 0.2 mgJump to med 0.2 mg, Intravenous, EVERY 2 MIN PRN, opioid reversal, Starting on Lucrecia 07/02/25 at 0828, Administer intravenous route when available and notify provider when administered. For unintended sedation or respiratory depression if all of the below criteria are met: ~ respiratory rate LESS than or EQUAL to 8. ~SaO2 less than 92% and or/end-tidal CO2 is greater than 50. ~ the patient is receiving an opioid, has unintended sedations assessed as RASS (-3), and is currently not on mechanical ventilation. RASS scale moderate (-3) is movement or eye opening to voice but no eye contact. Patient Monitoring Once the patient has demonstrated a response to the naloxone, continue to monitor respiratory rate, depth, oxygen saturation and end-tidal CO2 (if available) every 15 minutes x 2, then every 30 minutes x 2, then every 1 hour x 1 after each naloxone dose. Consider transfer to ICU if patient respiratory parameters have not improved after 4 naloxone doses., IR Intra- procedure Or naloxone (NARCAN) injection 0.4 mgJump to med 0.4 mg, Intravenous, EVERY 2 MIN PRN, opioid reversal, Starting on Lucrecia 07/02/25 at 0828, Administer intravenous route when available and notify provider when administered. For unintended sedation or respiratory depression if all of the below criteria are met: ~ respiratory rate LESS than or EQUAL to 8. ~ SaO2 less than 92% and or/end-tidal CO2 is greater than 50. ~ the patient is receiving an opioid, has unintended sedation assessed as RASS (-4) or (-5) and patient is currently not on mechanical ventilation. RASS scale (-4) is deep sedation with no response to voice but movement or eye opening to physical stimulation. RASS scale (-5) is unarousable. Patient Monitoring Once the patient has demonstrated a response to the naloxone, continue to monitor respiratory rate, depth, oxygen saturation and end-tidal CO2 (if available) every 15 minutes x 2, then every 30 minutes x 2, then every 1 hour x 1 after each naloxone dose. Consider transfer to ICU if patient respiratory parameters have not improved after 4 naloxone doses., IR Intra-procedure Or naloxone (NARCAN) injection 0.2 mgJump to med 0.2 mg, Intramuscular, EVERY 2 MIN PRN, opioid reversal, Starting on Lucrecia 07/02/25 at 0828, Administer intramuscular if an intravenous route is not available and notify provider when administered. For unintended sedation or respiratory depression if all of the below criteria are met: ~ respiratory rate LESS than or EQUAL to 8. ~SaO2 less than 92% and or/end-tidal CO2 is greater than 50. ~ the patient is receiving an opioid, has unintended sedations assessed as RASS (-3), and is currently not on mechanical ventilation. RASS scale moderate (-3) is movement or eye opening to voice but no eye contact. Patient Monitoring Once the patient has demonstrated a response to the naloxone, continue to monitor respiratory rate, depth, oxygen saturation and end-tidal CO2 (if available) every 15 minutes x 2, then every 30 minutes x 2, then every 1 hour x 1 after each naloxone dose. Consider transfer to ICU if patient respiratory parameters have not improved after 4 naloxone doses., IR Intra- procedure Or naloxone (NARCAN) injection 0.4 mgJump to med 0.4 mg, Intramuscular, EVERY 2 MIN PRN, opioid reversal, Starting on Lucrecia 07/02/25 at 0828, Administer intramuscular if an intravenous route is not available and notify provider when administered. For unintended sedation or respiratory depression if all of the below criteria are met: ~ respiratory rate LESS than or EQUAL to 8. ~ SaO2 less than 92% and or/end-tidal CO2 is greater than 50. ~ the patient is receiving an opioid, has unintended sedation assessed as RASS (-4) or (-5) and patient is currently not on mechanical ventilation. RASS scale (-4) is deep sedation with no response to voice but movement or eye opening to physical stimulation. RASS scale (-5) is unarousable. Patient Monitoring Once the patient has demonstrated a response to the naloxone, continue to monitor respiratory rate, depth, oxygen saturation and end-tidal CO2 (if available) every 15 minutes x 2, then every 30 minutes x 2, then every 1 hour x 1 after each naloxone dose. Consider transfer to ICU if patient respiratory parameters have not improved after 4 naloxone doses., IR Intra- procedure documented in this encounter Care Teams Needle Loom Weaver Relationship Specialty Start Date End Date Lara Colbert MD [address] [place] [address] PCP - General Family Medicine 02/07/22 Lara Colbert MD [address] [place] [address] Assigned PCP 04/02/22 Henry Pratt MD [address] [place] [id number] Cardiovascular Disease 02/10/25 Henry Pratt MD [address] [place] [address] Assigned Heart and Vascular Provider 04/17/25 documented as of this encounter
[2025-08-07] VITALS (17 sets, daily range): BP systolic 178–197; BP diastolic 71–82; PULSE 71–87; RESP 12–24; TEMP 36.4–37.5; O2SAT 92–98; BMI 29.1
--- OUTSIDE RECORDS SUMMARY | 2025-08-07 10:08 | XMS_ITS | Clinical Summary ---
Author Organization [employer] [facility] Address [address] [place] [address] Care Team Providers Care Production Solderer Name Role Phone Lara Colbert MD Primary Care Pr ovider Allergies Active Allergy Reactions Criticality Noted Date Comments Adhesive Tape-Silicones Rash 05/10/2020 Noted on arms only Medications metFORMIN sustained release (GLUMETZA) 500 mg tablet Take 500 mg by mouth once daily with a meal. Active simvastatin (ZOCOR) 10 mg tablet Take 10 mg by mouth at bedtime. Active multivitamins- minerals-lutei n (MULTIVITAMIN 50 PLUS) tab tablet Take 1 tablet by mouth once daily. Active glucosamine/ms m/chondroitin A (GLUCOSAMINE-C HONDR-MSM ORAL) Take 1 tablet by mouth once daily. Active calcium carbonate (CALCIUM 500 ORAL) Take 1 tablet by mouth once daily. Active docusate (COLACE) 100 mg tablet Take 100 mg by mouth once daily. Active acetaminophen SR (TYLENOL ARTHRITIS) 650 mg Extended-Relea se tablet Take 650 mg by mouth once daily if needed. Max acetaminophen dose: 4000mg in 24 hrs. Active ibuprofen-diph enhydrAMINE 200-25 mg cap Take 1 capsule by mouth at bedtime if needed. Active aspirin (ECOTRIN) 81 mg enteric coated tabletIndicati ons:Post-opera tive state Take 2 tablets by mouth once daily with a meal. 60 tablet 05/12/2020 10:50 AM CDT 0 Active celecoxib (CELEBREX) 100 mg capsuleIndicat ions:Post-oper ative state Take 1 capsule by mouth 2 times daily with meals. 30 capsule 05/12/2020 10:50 AM CDT 0 Active sennosides-doc usate, 8.6-50 mg, (SENOKOT-S) 8.6-50 mg tabletIndicati ons:Post-opera tive state Take 1-4 tablets by mouth 2 times daily if needed for Constipation. 100 tablet 05/12/2020 10:50 AM CDT 0 Active WalkerIndicati ons:Post-opera tive state Walker with front wheels for home use. 1 Device 0 Active HYDROcodone-ac etaminophen, 5-325 mg, (NORCO) per tabletIndicati ons:Post-opera tive state Take 1-2 tablets by mouth every 4 hours if needed for Pain Max acetaminophen dose: 4000 mg in 24 hrs. 50 tablet 05/13/2020 9:57 AM CDT 0 Active Active Problems Problem Noted Date Diagnosed Date Type II diabetes mellitus 05/11/2020 Hyperlipidemia 05/11/2020 Arthritis of left knee 05/11/2020 Encounters Date Type Department Care Team Description 05/25/2025 Lab Requisition [facility] [phone] Ulysses Bahena MBBS from Last 3 Months Social History Tobacco Use Types Packs/Day Years Used Date Smoking Tobacco: Former Cigarettes Smokeless Tobacco: Never Alcohol Use Standard Drinks/Week Comments Yes 0 (1 standard drink = 0.6 oz pur e alcohol) rare Comments No Sex and Gender Information Value Date Recorded Sex Assigned at Not on file Legal 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 Gender Identity Not on file Sexual Orientation Not on file Obstetrics History Last Filed Vital Signs Vital Sign Reading Time Taken Comments Blood Pressure 167/75 05/13/2020 7:50 AM CDT Pulse 90 05/13/2020 7:50 AM CDT Temperature 37 C (98.6 F) 05/13/2020 7:50 AM CDT Respiratory Rate 16 05/13/2020 7:50 AM CDT Oxygen Saturation 95% 05/13/2020 7:50 AM CDT Inhaled Oxygen Concentration - - Weight 75.5 kg (166 lb 8 oz) 05/11/2020 6:22 AM CDT Height 160 cm (5' 3) 05/11/2020 6:22 AM CDT Body Mass Index 29.49 05/11/2020 6:22 AM CDT Plan of Treatment Health Maintenance Due Date Last Done Comments Tetanus booster 1953 Depression screening for age 12+ 1954 BMI (ht and wt on same day) for age 18+ 1960 Pneumococcal series for age 50+ (1 of 1 - PCV) 1992 Zoster (shingles) series for age 50+ (1 of 2) 1992 DEXA/DXA scan for age 65+ 2007 Medicare Wellness for age 65+ 2007 RSV vaccine for adults or (1 - 1-dose 75+ series) 2017 COVID-19 vaccine series ( season) 2025 09/02/2024, 09/13/2023, 09/27/2022, Additional history exists Influenza Vaccine (#1) 2025 Hepatitis B series for 19+ Aged Out N o longer eligible based on patient's age to complete this topic Medical Devices Implanted Type Area Carnallite Plant Operator Device Identifier Shelf Expiration Date Model / Serial / Lot Patella Sz35 Yasmin Ii Rnd Penon Pors - [id number] Implanted:Qty: 1 on 05/11/2020 by Jose Manuel Cano MD at [facility] Total Joint Left: Knee [employer] 12/03/2029 [id number] / / [id number] Baseplate Tib Lt Sz3 Yasmin Ii Titnm Non Pors - [id number] Implanted:Qty: 1 on 05/11/2020 by Jose Manuel Cano MD at [facility] Total Joint Left: Knee [employer] 12/23/2028 [id number] / / [id number] Cmnt Bone 40g Simplex P Atb Mvtobramycin - [id number] Implanted:Qty: 2 on 05/11/2020 by Jose Manuel Cano MD at [facility] Left: Knee [employer] 07/26/2021 [id number]# / / [id number] Fem Lt Sz4 [employer] Cocr Non Pors - [id number] Implanted:Qty: 1 on 05/11/2020 by Jose Manuel Cano MD at [facility] Left: Knee [employer] 10/12/2029 [id number]# / / [id number] Insert Knee Sz 3-4 11mm [employer] St[employer] High Flex Xlpe - [id number] Implanted:Qty: 1 on 05/11/2020 by Jose Manuel Cano MD at [facility] Left: Knee [employer] 11/10/2029 [id number] / / [id number] Procedures Procedure Name Priority Date/Time Associated Diagnosis Comments PERIPHERAL BLD MORPHOLOGY Routine 05/25/2025 4:32 PM CDT Dyspnea, unspecified Abnormality of plasma protein, unspecified Anemia, unspecified from Last 3 Months Results * PERIPHERAL BLD MORPHOLOGY (05/25/2025 4:32 PM CDT) Case Report Special Hematology Report Case: [id number] Authorizing Provider: Ulysses Bahena MBBS Collected: 05/25/2025 1632 Ordering Location: [facility] Received: 05/26/2025 1843 Pathologist: Jean Slater MD Specimen: Blood 05/27/2025 1:35 PM CDT [facility] Final Diagnosis PERIPHERAL BLOOD: 1. Microcytic, hypochromic anemia 2. Absolute neutropenia 3. Absolute basophilia 4. See comment 05/27/2025 1:35 PM CDT [facility] at 1335 CDT Comment The most common etiology for microcytic anemia is iron deficiency. Recommend correlation with serum iron studies, including ferritin and soluble transferrin receptor assay. Anemia of chronic disease can also exhibit microcytic features. Concurrent anemia of renal insufficiency, medication effect and anatomic blood loss cannot be excluded. There are no findings to suggest hemolysis. The features of the neutropenia are nonspecific. Neutropenia in adults can be associated with medications, infection, nutritional deficiencies, rheumatologic/au toimmune disorders, and hematologic malignancies. Clinical correlation is recommended. 05/27/2025 1:35 PM CDT [facility] Clinical Information Submitted clinical information: Dyspnea (finding) (R06.00); Finding of substance level (finding) (R77.9); Normocytic normochromic anemia (disorder) (D64.9) 05/27/2025 1:35 PM CDT [facility] CBC and Differential HEMATOLOGY PARAMETERS Tested at: [facility] RESULTS EXPECTED VALUES WBC: 5.1 4.5-35m2370/cumm RBC: 3.0 4.00-5.20 mil/cumm DECREASED HGB: 7.4 12-16 gm/dl DECREASED HCT: 23.2 33-51% DECREASED MCV: 78.0 80-100 fl MICROCYTIC MCH: 25.0 26-34 pg DECREASED MCHC: 31.9 32-36 gm/dl HYPOCHROMIC PLT: 262 [id number]/uL Retic: 2.5 0.5-1.5% ELEVATED Differential Absolute (%) Expected (%) (x10*9/L) (x10*9/L) Neutrophils: 1.53 (30) 1.7-7.0 (42-72%) DECREASED Lymphocytes: 2.7 (52.9) 0.9-2.9 (20-44%) Monocytes: 0.51 (10) <0.9 (0-11%) Basophils: 0.36 (7.1) <0.3 (<3.0%) ELEVATED NRBC/100 WBCs: 0.46 (9) 0 (0%) NRBC's 05/27/2025 1:35 PM CDT [facility] Microscopic Description The final diagnosis is based on microscopic examination of an appropriately stained blood smear. 05/27/2025 1:35 PM CDT [facility] Additional Information Interpreted at [facility] - [address], [place] [address] 05/27/2025 1:35 PM CDT [facility] Blood BLOOD SPECIMEN / Unknown 05/25/2025 4:32 PM CDT 05/26/2025 6:43 PM CDT Ulysses CLARKBS HEMATOLOGY Final Re sult [facility] [address] [place] [address], [place] from Last 3 Months Insurance MEDICARE PART A HB ONLY BLUE CROSS MEDICARE ADVANTAGE Advance Directives Documents on File Type Date Recorded Patient Director Of Events Expl anation Healthcare Directive 02/17/2014 014 * Full Code (Latest Code Status on File) Date Activated Date Inactivated Comments 05/11/2020 5:52 AM 05/13/2020 4:39 PM Care Teams Production Solderer Relationship Specialty Start Date End Date Lara Colbert MD [address] [place] [address] PCP - General Family Practice 05/27/25
--- OUTSIDE RECORDS SUMMARY | 2025-08-07 10:08 | XMS_ITS ---
Author Name Interface, [id number] lity Address [address] [place], [place] [address] [address] [facility] Address [address] [place] [address] Allergies and Adverse Reactions Plan Reason for Visit Encounters Diagnostic Results Medications Problems Notes Section
--- OUTSIDE RECORDS SUMMARY | 2025-08-07 10:08 | XMS_ITS ---
Author Name Interface, [id number] lity Address [address] [facility] [address] [address] [facility] Address [address] [facility] [address] [address] Allergies and Adverse Reactions Medication/Group Name Reaction Severity Date amoxicillin 08/07/2025 Latex (substance) 08/07/2025 Plan Date Type Value 07/14/2025 APPOINTMENT PORT DRAW 15 MIN 07/14/2025 APPOINTMENT PORT DRAW 15 MIN 07/14/2025 APPOINTMENT OV 20 MIN 07/14/2025 LABORDER CBC w/ auto diff Reason for Visit TREATMENT 2 HR Encounters Date Name 07/14/2025 Diabetes mellitus ty pe 2 (disorder) 07/14/2025 Dyspnea (finding) 07/14/2025 Hypercholesterolemia (disorder) 07/14/2025 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/14/2025 Neutropenia 07/14/2025 Normocytic normochro shanell anemia (disorder) Diagnostic Results Date Type Test Units Lower Limit Upper Limit Result Flag Comments Status Ordered By Specimen Source Lab Address 07/14 Smear revie w panel CBC Smear revie w comme nts Consist ent with reporte d results Abnorma l Lymphs present Multipl e RBC populat ions, increas ed anisoyt osis, poikocy tosis, and giant plt present FINAL Ruthann Llanos [facility] , [address] [facility] [id number] 07/14 CBC w/ auto diff WBC K/uL 3.0 8.9 1.1 Low FINAL Ruthann Llanos [facility] , [address] [place] [id number] 0 07/14 CBC w/ auto diff HGB g/dL 11.3 15.2 7.0 Critica l hematol ogy result obtaine luis m Sheng dick Low FINAL Ruthann Dewey [place] [facility] [place] [facility] , [address] [place] [id number] 0 07/14 CBC w/ auto diff PLT K/uL 113.0 364.0 120 FINAL [facility] [place] [facility] , [address] [place] [id number] 0 07/14 CBC w/ auto diff Plate let, immat ure, fract ion % 0.9 11.2 9.7 FINAL Ruthann Dewey [facility] [place] [facility] , [address] [place] [id number] 0 07/14 CBC w/ auto diff Vania # (ANC) K/uL 1.6 6.6 0.4 Critica l hematol ogy result obtaine luis m Patricio dick Low FINAL Ruthann [facility] [place] [facility] , [address] [place] [id number] 0 07/14 CBC w/ auto diff Vania % % 43.0 74.0 34.9 Low FINAL [facility] [place] [facility] , [address] [place] [id number] 0 07/14 CBC w/ auto diff IG % % 0.0 0.5 0.0 FINAL [facility] [place] [facility] , [address] [place] [id number] 0 07/14 CBC w/ auto diff IG # K/uL 0.0 0.03 0.00 FINAL Ruthann Dewey [place] [facility] [place] [facility] , [address] [place] [id number] 0 07/14 CBC w/ auto diff LY % % 14.0 41.0 54.1 High FINAL Ruthann Dewey [place] [facility] [place] [facility] , [address] [place] [id number] 0 07/14 CBC w/ auto diff MO % % 6.0 15.0 4.6 Low FINAL Ruthann Dewey [place] [facility] [place] [facility] , [address] [place] [id number] 0 07/14 CBC w/ auto diff EO % % 0.0 7.0 5.5 FINAL Ruthann Dewey [place] [facility] [place] [facility] , [address] [place] [id number] 0 07/14 CBC w/ auto diff BA % % 0.0 2.0 0.9 FINAL Ruthann Dewey [place] [facility] [place] [facility] , [address] [place] [id number] 0 07/14 CBC w/ auto diff LY # K/uL 0.4 3.6 0.6 FINAL Ruthann Dewey [place] [facility] [place] [facility] , [address] [place] [id number] 0 07/14 CBC w/ auto diff MO # K/uL 0.2 1.3 0.1 Low FINAL Ruthann Dewey [place] [facility] [place] [facility] , [address] [place] [id number] 0 07/14 CBC w/ auto diff EO # K/uL 0.0 0.6 0.1 FINAL Ruthann Dewey [place] [facility] [place] [facility] , [address] [place] [id number] 0 07/14 CBC w/ auto diff BA # K/uL 0.0 0.2 0.0 FINAL Ruthann Dewey [place] [facility] [place] [facility] , [address] [place] [id number] 0 07/14 CBC w/ auto diff NRBC % #/100W BC 0.0 0.2 0.0 FINAL Ruthann Dewey [place] [facility] [place] [facility] , [address] [place] [id number] 0 07/14 CBC w/ auto diff RBC M/uL 3.9 5.1 2.80 Low FINAL Ruthann Dewey [place] [facility] [place] [facility] , [address] [place] [id number] 0 07/14 CBC w/ auto diff HCT % 35.0 48.0 21.5 Low FINAL Ruthann Dewey [place] [facility] [place] [facility] , [address] [place] [id number] 0 07/14 CBC w/ auto diff MCV fL 80.0 104.0 76.8 Low FINAL Ruthann Dewey [place] [facility] [place] [facility] , [address] [place] [id number] 0 07/14 CBC w/ auto diff MCH pg 26.0 35.0 25.0 Low FINAL Ruthann Dewey [place] [facility] [place] [facility] , [address] [place] [id number] 0 07/14 CBC w/ auto diff MCHC g/dL 30.0 35.0 32.6 FINAL Ruthann Dewey [place] [facility] [place] [facility] , [address] [place] [id number] 0 07/14 CBC w/ auto diff MPV fL 9.5 13.4 ---- FINAL Ruthann carcamo [place] [facility] , [address] [place] [id number] 0 07/14 CBC w/ auto diff RDW % 11.4 16.1 ---- FINAL Ruthann carcamo [facility] , [address] [place] [id number] 0 07/14 CBC w/ auto diff Auto CBC comme nts Slide review to follow FINAL Ruthann carcamo [facility] , [address] [place] [id number] Medications Date Name Route Dose Frequency Instructions Start Date End Date Status Fill Status Indication 06/23 Glucos amine Oral daily active 06/23 Simvas tatin Oral daily active 06/23 Calciu m-Chol ecalci ferol Oral 600 mg-10 mcg (400 unit) daily active 06/23 Multiv itamin s Oral Tablet daily active 06/23 Losart an Oral daily active 06/23 Aspiri n Oral daily active 06/23 Sennos ides Oral PRN active 06/23 Metfor min Oral daily active 06/23 decita bine 50 MG Inject ion intrave nously 35.0 mg once Dilute in NS or D5W to final concentration of 0.1-1 mg/mL. Unless used within 15 minutes of reconstitution , the diluted solution must be prepared using cold (RF) fluids. 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 2025 active 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 06/23 decita bine 50 MG Inject ion intrave nously 35.0 mg once Dilute in NS or D5W to final concentration of 0.1-1 mg/mL. Unless used within 15 minutes of reconstitution , the diluted solution must be prepared using cold (RF) fluids. 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 2025 active 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 06/23 decita bine 50 MG Inject ion intrave nously 35.0 mg once Dilute in NS or D5W to final concentration of 0.1-1 mg/mL. Unless used within 15 minutes of reconstitution , the diluted solution must be prepared using cold (RF) fluids. 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 2025 active 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 06/23 decita bine 50 MG Inject ion intrave nously 35.0 mg once Dilute in NS or D5W to final concentration of 0.1-1 mg/mL. Unless used within 15 minutes of reconstitution , the diluted solution must be prepared using cold (RF) fluids. 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 2025 active 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 06/23 decita bine 50 MG Inject ion intrave nously 35.0 mg once Dilute in NS or D5W to final concentration of 0.1-1 mg/mL. Unless used within 15 minutes of reconstitution , the diluted solution must be prepared using cold (RF) fluids. 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 Unless used within 15 minutes of reconstitution , the diluted solution must be prepared using cold (RF) fluids. 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 Unless used within 15 minutes of reconstitution , the diluted solution must be prepared using cold (RF) fluids. 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 Unless used within 15 minutes of reconstitution , the diluted solution must be prepared using cold (RF) fluids. 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 Unless used within 15 minutes of reconstitution , the diluted solution must be prepared using cold (RF) fluids. 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 Unless used within 15 minutes of reconstitution , the diluted solution must be prepared using cold (RF) fluids. 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 Unless used within 15 minutes of reconstitution , the diluted solution must be prepared using cold (RF) fluids. 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 Unless used within 15 minutes of reconstitution , the diluted solution must be prepared using cold (RF) fluids. 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 Unless used within 15 minutes of reconstitution , the diluted solution must be prepared using cold (RF) fluids. 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 Unless used within 15 minutes of reconstitution , the diluted solution must be prepared using cold (RF) fluids. 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 Unless used within 15 minutes of reconstitution , the diluted solution must be prepared using cold (RF) fluids. 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 Unless used within 15 minutes of reconstitution , the diluted solution must be prepared using cold (RF) fluids. 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 Unless used within 15 minutes of reconstitution , the diluted solution must be prepared using cold (RF) fluids. 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 Unless used within 15 minutes of reconstitution , the diluted solution must be prepared using cold (RF) fluids. 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 Unless used within 15 minutes of reconstitution , the diluted solution must be prepared using cold (RF) fluids. 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 Unless used within 15 minutes of reconstitution , the diluted solution must be prepared using cold (RF) fluids. 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 Unless used within 15 minutes of reconstitution , the diluted solution must be prepared using cold (RF) fluids. 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 Unless used within 15 minutes of reconstitution , the diluted solution must be prepared using cold (RF) fluids. 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 Unless used within 15 minutes of reconstitution , the diluted solution must be prepared using cold (RF) fluids. 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 Unless used within 15 minutes of reconstitution , the diluted solution must be prepared using cold (RF) fluids. 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 Unless used within 15 minutes of reconstitution , the diluted solution must be prepared using cold (RF) fluids. 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 06/23 veneto clax 100 MG Oral Tablet orally 400.0 mg As Directed 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 06/23 veneto clax 100 MG Oral Tablet orally 400.0 mg As Directed 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 06/23 acyclo vir 400 MG Oral Tablet orally 1.0 tablet 2 times per day 2024 active Normocytic normochromic anemia (disorder) Problems Diagnosis Status Date of Diagnosis Resolution Date 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 Finding of substance level (finding) Active Hypercholesterolemia (disorder) Active Normocytic normochromic anemia (disorder) Active Diabetes mellitus type 2 (disorder) Active Dyspnea (finding) Active Rash Active Urinary urgency Active Constipation (finding) Active Thrombocytopenic disorder (disorder) Active Neutropenia Active Insomnia Active Notes Section * Med Onc Follow-up Note Patient Name: NAUN DINERO Date Of : 1940 Today's Provider:?Ulysses Bahena MD Date of Service:?07/14/2025 Attending Physician:?Ulysses Bahena (Hematology/Oncology) Referring Provider: Lara Colbert MD HEMATOLOGY/ MEDICAL ONCOLOGY FOLLOW UP VISIT Reason for Visit 1.?? Here??after receiving cycle 1 day 1??of decitabine and venetoclax??for MDS. 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 IPSS???M score very high, IPSSR score high ???Overall survival 1 year median, AML transformation 28.2% x 1 year, leukemia free survival 0.76 years ??? Reviewed??the same with patient, discussed best supportive care versus??trial of decitabine and??venetoclax with goal of reducing??dependence on transfusion, improving cell counts 2.?? Neutropenia without neutropenic fever 3. ??Medical conditions being managed by PCP 4. ??Depression/anxiety ???Previous benefit from Paxil??(22 years ago) 5. Constipation?? Plan MDS: 1.?Start decitabine??days 1???5 q. 28 2.?Has been on venetoclax 400 mg, will reduce to 100 mg 3.?? Will reassess on Sunday as she will be off venetoclax at that point. 4. ??PRBC for??hemoglobin at 7 and under and platelet transfusion if platelet count less than 10. ??Needs leukoreduced products NEUTROPENIA: 1.?? Continue acyclovir 2. ??Continue Levaquin, discussed with Pharm.D.,??C. difficile risk without antibiotics 3. ??Like to have posaconazole but would like her to stop her??simvastatin first 4. ??ER if any evidence of neutropenic fever. OTHER: 1.?? Continue medication management??with PCP 2. ??Now on Lexapro for mood Advanced Care Planning Not discussed at this visit. Pain Scale on Today's Visit 0 Pain Plan on Today's Visit No pain plan indicated for today's visit Smoking Status Smoking Tobacco : Never smoker; Smokeless Tobacco : Never used smokeless tobacco; Vaping : Never vaped Depression Screening Tool Status Was screened; Outcome positive: No; Screening Date: 07/14/2025; Screening Tool: PRIME [id number]-PHQ2; Total depression score: 1 History of Present Illness 1.?? 85-year-old presented to PCP due to concerns for shortness of breath, a year ago in march 2024, when got sick. Now with fatigue and dizziness. Family says less active. No fevers/ sweats/ wt loss. No bleeding. 1.?04/02/2024: Hemoglobin of 14.5 ??? 02/18/2025 WBC 8, hemoglobin 9.4, PLT 200 2.?? 04/09/2025: CT scan of the chest showed no major abnormalities ??? A few mildly prominent thoracic lymph nodes, subcarinal??short axis of 9 mm, right hilar lymph node measures 11 mm, axilla lymph nodes are small 2.05/19/2025: WBC 3.8, hemoglobin 8, MCV 81, platelet count 268 3.05/25/2025: WBC 5.1, hemoglobin 7.4, PLT: 262 4. 11/2022: Last colonoscopy 5.?? 06/08/2025:??Bone marrow biopsy BONE MARROW AND PERIPHERAL BLOOD: 1. Myelodysplastic neoplasm with biallelic TP53 activation (WHO); Myelodysplastic syndrome with mutated TP53 ([facility]) a. Bone marrow blasts: 1% [employer] and FISH: Chromosome Analysis: Pasitive for an abnormal hypodiploid complex clone TP53 FISH: Positive for two abnormal clones; TP53 deletion, and gain of CEP17 TREATMENT: 1.?? 07/06/2025: Initiated decitabine and venetoclax for MDS Interval History??patient??patient comes a family members, there is been concern with sleep, fatigue, not being able to do things she likes,??she has had no infectious symptoms. ??She is taking antibiotics. ??She had constipation initially. ??She took stool softeners now. ??Things are somewhat better.?? She is disappointed she is not feeling better Review of Systems Remaining 14 point comprehensive review of systems within normal limits. NCCN Distress Thermometer and Problem List were collected and documented in the patient chart.?? Remarkable symptoms and concerns were discussed with the patient.?? Any additional follow-up is indicated in the plan. Past Medical and Surgical History DM, hypercholesterolemia, recently new blood pressure medication Current Medications Medication List Name Date Acyclovir Oral 07/14/2025 Levofloxacin Oral 07/14/2025 Multivitamins Oral Tablet 06/23/2025 Simvastatin Oral 06/23/2025 Prochlorperazine Oral 06/23/2025 Aspirin Oral 06/23/2025 Lidocaine-Prilocaine Topical Cream 2.5 % -2.5 % 07/08/2025 Glucosamine Oral 06/23/2025 Venetoclax Oral 06/23/2025 Calcium 600 + D(3) (Calcium-Cholecalcife rol Oral 600 mg-10 mcg (400 unit)) 06/23/2025 Sennosides Oral 07/14/2025 Allopurinol Oral 06/23/2025 Venetoclax Oral 06/23/2025 Metformin Oral 06/23/2025 Lexapro (Escitalopram Oral) 07/06/2025 Losartan Oral 06/23/2025 Allergies Latex (substance) and amoxicillin Family History Father: cancer Social History , 2 daughters and 1 son. 8 grandchildren. 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 Restricted in physically strenuous activity, but ambulatory and able to carry out work of a light or sedentary nature (e.g., light housework, office work). (Date: 07/06/2025) Karnofsky: Not recorded Physical Exam Limited head, face, neck no abnormality Genetics/Molecular/Biomarkers * MDS-U - unclassifiable myelodysplastic syndrome ( SCT Eligible: No; IPSS-R Score: High risk (>4.5 to 6 points); IDH1 status: Wild type; ) Additional Labs, Imaging, and Other Studies Lab Results CBC Lab Results 07/14/2025 07/06/2025 07/02/2025 06/23/2025 06/03/2025 05/25/2025 CBC WBC x 10^3/uL 1.1 (L) 2.8 (L) 3.0 2.6 (L) 5.1 RBC x 10^6/uL 2.80 (L) 3.06 (L) 3.11 (L) 3.48 (L) 2.96 (L) NRBC % /100 wbc 0.0 2.8 (H) 6.9 (H) 2.7 (H) 5.7 (H) HGB g/dL 7.0 Critical hematology result obtained (LL) 7.8 Critical hematology result obtained (LL) 7.8 Critical hematology result obtained (LL) 9.0 (L) 7.4 Critical hematology result obtained (LL) HCT % 21.5 (L) 23.4 (L) 24.5 (L) 28.0 (L) 23.2 (L) MCV fL 76.8 (L) 76.5 (L) 78.8 (L) 80.5 78.4 (L) MCH pg 25.0 (L) 25.5 (L) 25.1 (L) 25.9 (L) 25.0 (L) MCHC g/dL 32.6 33.3 31.8 32.1 31.9 RDW % ---- ---- ---- ---- ---- PLT x 10^3/uL 120 168 222 171 262 MPV fL ---- ---- ---- ---- ---- Platelet, immature, fraction % 9.7 11.4 (H) 9.5 9.9 9.5 Vania % 34.9 (L) 22.9 (L) 24.0 (L) 22.8 (L) 22.9 (L) LY % 54.1 (H) 60.9 (H) 51.0 (H) 53.9 (H) 58.9 (H) MO % 4.6 (L) 12.3 18.4 (H) 17.4 (H) 14.2 EO % 5.5 2.8 4.6 3.9 2.8 IG % 0.0 0.0 0.0 0.4 0.2 Vania # (ANC) x 10^3/uL 0.4 Critical hematology result obtained (LL) 0.7 (L) 0.7 (L) 0.6 (L) 1.2 (L) BA % 0.9 1.1 2.0 1.6 1.0 MO # x 10^3/uL 0.1 (L) 0.4 0.6 0.5 0.7 EO # x 10^3/uL 0.1 0.1 0.1 0.1 0.1 BA # x 10^3/uL 0.0 0.0 0.1 0.0 0.1 IG # x 10^3/uL 0.00 0.00 0.00 0.01 0.01 LY # x 10^3/uL 0.6 1.7 1.6 1.4 3.0 CBC Smear review comments Consistent with reported results Abnormal Lymphs present Multiple RBC populations, increased anisoytosis, poikocytosis , and giant plt present Consistent with reported results Large and-or giant platelets present Increased anisocytosis , poikocytosis , and RBC dimorphic population Abnormal Lymphs present Large platelets present Increased anisocytosis (A) Reactive and Abnormal Lymphs present Large and giant platelets present Basophilic Stippling Present (A) Increased anisocytosis and poikocytosis Large and-or giant platelets present Multiple RBC populations (A) Auto CBC comments Slide review to follow Slide review to follow Slide review to follow Slide review to follow Slide review to follow Chemistries Lab Results 07/14/2025 07/06/2025 07/02/2025 06/23/2025 06/03/2005/25/2025 Chemistries Glucose mg/dL 111 (H) 125 (H) BUN mg/dL 21.0 (H) 23.0 (H) Creatinine mg/dL 0.90 0.90 Sodium mmol/L 139 136 (L) Potassium mmol/L 4.2 4.2 Chloride mmol/L 109 (H) 102 CO2 mmol/L 21 (L) 24 Calcium mg/dL 8.9 9.4 Albumin g/dL 4.5 4.8 Total protein g/dL 7.6 8.2; 7 .9 Bilirubin, total mg/dL 0.4 0.6 Alkaline phosphatase U/L 52 52 AST/SGOT U/L 38 (H) 49 (H) ALT/SGPT U/L 20 24 LDH U/L 185 182 Uric acid mg/dL 5.9 6.4 (H) GFR estimate mL/min/1.73m2 63.4 63.4 Magnesium, mg/dL 1.9 Phosphorus mg/dL 3.6 ? Lab Results 07/14/2025 07/06/2025 07/02/2025 06/23/2025 06/03/2005/25/2025 Anemia Labs Iron ug/dL 123 TIBC ug/dL 312 Ferritin ng/mL 187.00 Unbound iron capacity ug/dL 189 Iron, % saturation % 39 Reticulocyte count % 2.44 (H) Reticulocyte, absolute x 10^6/mL 0.07 Immature reticulocyte fraction, % 7.60 Reticulocyte cellular hemoglobin pg 20.7 (L) Surveys/Consents/Other Discussions Ulysses Bahena MD CC: FAX Lara Colbert MD (Referring) Electronically signed by Ulysses Bahena MD 07/14/2025 17:16 CDT
--- OUTSIDE RECORDS SUMMARY | 2025-08-07 10:08 | XMS_ITS ---
Author Name Interface, [id number] lity Address [address] [place], [place] [address] [address] [facility] Address [address] [place] [address] Allergies and Adverse Reactions Plan Reason for Visit Encounters Diagnostic Results Medications Problems Vital Signs Notes Section
--- OUTSIDE RECORDS SUMMARY | 2025-08-07 10:09 | XMS_ITS ---
Author Name Interface, [id number] lity Address [address] [place], [place] [address] [address] [facility] Address [address] [place] [address] Allergies and Adverse Reactions Plan Reason for Visit Encounters Diagnostic Results Medications Problems Notes Section
--- OUTSIDE RECORDS SUMMARY | 2025-08-07 10:09 | XMS_ITS | Encounter Summary ---
Author Organization [place] Address [address] [place] [address] Care Team Providers Care Banquet Stewardess Name Role Phone Gloria Linn MD Primary Care Provider Gloria Linn MD Unavailable [phone] Lara Colbert MD Primary Care Provider Lara Colbert MD Unavailable Henry Pratt MD Unavailable Henry Pratt MD Unavailable Encounter Details Date Type Department Care Team (Late st Contact Info) Description 01/10/2021 MyC Medical Advice [facility] Physicians [address] [place] [address] Gloria Linn MD [facility] [address] [place] [address] [address] [place], [place] [id number] Social History Tobacco Use Types Packs/Day Years Used Date Smoking Tobacco: Former Cigarettes 0.1 3 Smokeless Tobacco: Never Alcohol Use Standard Drinks/Week Comments Yes 0 (1 standard drink = 0.6 oz pur e alcohol) rare AUDIT-C Answer Date Recorded Frequency of Alcohol Consumption Monthly or less 06/02/2019 Average Number of Drinks 1 or 2 019 Frequency of Binge Drinking Not on file 06/2019 Overall Financial Resource Strain (CARDIA) Remigioe r Date Recorded How hard is it for you to pa y for the very basics like food, housing, medical care, and heating? Not hard at all 12/08/2019 PHQ-2 Answer Date Recorded PHQ-2 Score 0 12/06/2018 Hunger Vital Sign Answer Date Recorded Within [...] things needed for daily living? 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 Gender Identity Not on file Sexual Orientation Not on file Occupation Industry Job Start Date Job End Date retired Not on file Not on file Not on file Not on file Not on file Not on file Not on file documented as of this encounter Plan of Treatment Not on file documented as of this encounter Visit Diagnoses Not on filedocumented in this encounter Additional Health Concerns Infection Onset Date Last Indicated Resolved Time Rule Out COVID-19 04/20/2024 04/20/2024 04/21/2024 11:57 AM CDT documented as of this encounter Care Teams Banquet Stewardess Relationship Specialty Start Date End Date Gloria Linn MD [address] [address] PCP - General Family Practice 07/31/17 02/06/22 Lara Colbert MD [address] [address] PCP - General Family Medicine 02/07/22 Gloria Linn MD [address] [address] Assigned PCP 03/24/18 04/01/22 Lara Colbert MD [address] [facility] [address] [place] [address] Assigned PCP 04/02/22 Henry Pratt MD [address] [facility] [address] [place] [address] Cardiovascular Disease 02/10/25 Henry Pratt MD [address] [facility] [address] [place] [address] Assigned Heart and Vascular Provider 04/17/25 documented as of this encounter
--- OUTSIDE RECORDS SUMMARY | 2025-08-07 10:09 | XMS_ITS | Encounter Summary ---
Author Organization [place] Address [address] [place] [address] Care Team Providers Care Ring Stamper Name Role Phone Lara Colbert MD Primary Care Provider [phone] Lara Colbert MD Unavailable [phone] Henry Pratt MD Unavailable Henry Pratt MD Unavailable Reason for Visit * Reason Onset Date Comments Referral 04/15/2025 Pulmonology Encounter Details Date Type Department Care Team (Late st Contact Info) Description 04/15/2025 Telephone [facility] Physicians [address] [place] [address] [address] [place] [address] Lara Colbert MD [address] [address] [place] [address] Referral (Pulmonology ) Social History Tobacco Use Types Packs/Day Years [...] file 06/2019 Overall Financial Resource Strain (CARDIA) Gloria r Date Recorded How hard is it [...] on file 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 She said that she will call her Park Warden to ask what they think/feel about her 08.05.2025 Pulmonology appointment. Patient also stated that she is on a cancellation list with [facility] Pulmonology. Will also call [facility] Pulmonology to see if they have had any cancellations. FYI * Telephone Encounter - Lara Colbert MD - 04/15/2025 1:50 PM CDT Cardiology has evaluated her and recommends that she see pulmonary. She can call their office for acancellation appointment. Or see if she can get in to see a different computer recycling worker, she can then call us to change her referral. Be sure that pulmonary office reviews notes to determine if this is the soonest they can get her in. * Telephone Encounter - DennisNai - 04/15/2025 12:00 PM CDT Patient is scheduled 08.05.2025 with [facility] Pulmonology. That was the first available appointment with the referral issued with the priority as Routine If you feel / want the patient seen to be seen sooner the priority in the Referral will need to be changed. Please review -- Are you ok with patient waiting until 08.05.2025 to see Pulmonology? documented in this encounter Plan of Treatment Not on file documented as of this encounter Visit Diagnoses Not on filedocumented in this encounter Care Teams Ring Stamper Relationship Specialty Start Date End Date Lara Colbert MD [address] [address] PCP - General Family Medicine 02/07/22 Lara Colbert MD [address] [address] Assigned PCP 04/02/22 Henry Pratt MD [address] [place] [address] Cardiovascular Disease 02/10/25 Henry Pratt MD [address] [place] [id number] Assigned Heart and Vascular Provider 04/17/25 documented as of this encounter
--- OUTSIDE RECORDS SUMMARY | 2025-08-07 10:09 | XMS_ITS | Encounter Summary ---
Author Organization [place] Address [address] [place] [address] Care Team Providers Care Clerk Television Production Name Role Phone Gloria Linn MD Primary Care Provider [phone] Gloria Linn MD Unavailable [phone] Lara Colbert MD Primary Care Provider Lara Colbert MD Unavailable [phone] Henry Pratt MD Unavailable Henry Pratt MD Unavailable Reason for Visit * Reason Comments Medication Refill Encounter Details Date Type Department Care Team ([facility] Contact Info) Description 09/20/2020 Refill [facility] Physicians [address] [place] [address] Gloria Linn MD [facility] [address] [place] [address], [facility] [address] [place], [place] [id number] Medication Refill Social History Tobacco Use Types Packs/Day Years [...] on file 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 No / Unsure 09/20/2020 8:58 AM CDT documented as of this encounter Miscellaneous Notes * Telephone Encounter - Gloria Linn MD - 09/20/2020 3:05 PM CDT refilled * Telephone Encounter - Kaley Queen CMA - 09/20/2020 2:33 PM CDT Pt was seen today, needs refill of her test strips. Varsha Cui is requesting a refill of: Pending Prescriptions: Disp Refills CONTOUR NEXT TEST test strip [Pharmacy Me*100 ea*3 Sig: USE 1 STRIP TO CHECK GLUCOSE ONCE DAILY OR DIRECTED documented in this encounter Plan of Treatment Not on file documented as of this encounter Visit Diagnoses Diagnosis Type 2 diabetes mellitus without complication, without long-term current use of insulin (H) documented in this encounter Additional Health Concerns Infection Onset Date Last Indicated Resolved Time Rule Out COVID-19 04/20/2024 04/20/2024 04/21/2024 11:57 AM CDT documented as of this encounter Care Teams Clerk Television Production Relationship Specialty Start Date End Date Gloria Linn MD [address], [address] [address] PCP - General Family Practice 07/31/17 02/06/22 Lara Colbert MD [address] [place] [address] PCP - General Family Medicine 02/07/22 Gloria Linn MD [address], [address] [address] Assigned PCP 03/24/18 04/01/22 Lara Colbert MD [address] [place] [address] Assigned PCP 04/02/22 Henry Pratt MD [address] [place] [id number] Cardiovascular Disease 02/10/25 Henry Pratt MD [address] [place] [address] Assigned Heart and Vascular Provider 04/17/25 documented as of this encounter
--- OUTSIDE RECORDS SUMMARY | 2025-08-07 10:09 | XMS_ITS ---
Author Name Interface, [id number] lity Address [address] [facility] [address] [address] [facility] Oncology Address [address] [facility] [address] [address] Allergies and Adverse Reactions Medication/Group Name Reaction Severity Date amoxicillin 08/07/2025 Latex (substance) 08/07/2025 Plan Date Type Value 08/21/2025 APPOINTMENT TREATMENT 2 HR 08/20/2025 APPOINTMENT TREATMENT 2 HR 08/19/2025 APPOINTMENT TREATMENT 2 HR 08/18/2025 APPOINTMENT TREATMENT 2 HR 08/18/2025 APPOINTMENT TREATMENT 2 HR 08/17/2025 APPOINTMENT TREATMENT 2 HR 08/14/2025 APPOINTMENT TREATMENT 2 HR 08/13/2025 APPOINTMENT TREATMENT 2 HR 08/12/2025 APPOINTMENT TREATMENT 2 HR 08/11/2025 APPOINTMENT TREATMENT 2 HR 08/11/2025 APPOINTMENT OV 20 MIN 08/11/2025 APPOINTMENT PORT DRAW 15 MIN 08/10/2025 APPOINTMENT TREATMENT 2 HR 08/07/2025 APPOINTMENT PORT DRAW 15 MIN 08/07/2025 APPOINTMENT OV 20 MIN 08/07/2025 APPOINTMENT OV 20 MIN 08/07/2025 APPOINTMENT TREATMENT 2 HR 08/06/2025 APPOINTMENT PORT DRAW 15 MIN 08/06/2025 APPOINTMENT PORT DRAW 15 MIN 08/06/2025 APPOINTMENT TREATMENT 2 HR 08/06/2025 APPOINTMENT HYDRATION 2 HR 08/05/2025 APPOINTMENT TREATMENT 2 HR 08/04/2025 APPOINTMENT TREATMENT 2 HR 08/03/2025 APPOINTMENT TREATMENT 2 HR 08/03/2025 APPOINTMENT OV 20 MIN 08/03/2025 APPOINTMENT PORT DRAW 15 MIN 08/03/2025 APPOINTMENT PORT DRAW 15 MIN 08/03/2025 APPOINTMENT TREATMENT 2 HR 08/03/2025 APPOINTMENT OV 20 MIN 08/03/2025 APPOINTMENT PORT DRAW 15 MIN 08/03/2025 APPOINTMENT TREATMENT 2 HR 08/03/2025 APPOINTMENT OV 30 MIN 07/28/2025 APPOINTMENT PORT DRAW 15 MIN 07/23/2025 APPOINTMENT PORT DRAW 15 MIN 07/20/2025 APPOINTMENT OV 20 MIN 07/20/2025 APPOINTMENT PORT DRAW 15 MIN 07/20/2025 APPOINTMENT PORT DRAW 15 MIN 07/15/2025 APPOINTMENT PORT DRAW 15 MIN 07/15/2025 APPOINTMENT OV 30 MIN 07/14/2025 APPOINTMENT PORT DRAW 15 MIN 07/14/2025 APPOINTMENT PORT DRAW 15 MIN 07/14/2025 APPOINTMENT OV 20 MIN 07/10/2025 APPOINTMENT TREATMENT 2 HR 07/09/2025 APPOINTMENT TREATMENT 2 HR 07/08/2025 APPOINTMENT TREATMENT 2 HR 07/07/2025 APPOINTMENT TREATMENT 2 HR 07/06/2025 APPOINTMENT PORT DRAW 15 MIN 07/06/2025 APPOINTMENT TREATMENT 2 HR 07/06/2025 APPOINTMENT OV 30 MIN 07/06/2025 LABORDER Phosphorus panel 07/06/2025 LABORDER Magnesium Panel 07/06/2025 LABORDER CBC w/ auto diff 07/14/2025 LABORDER CBC w/ auto diff 07/20/2025 LABORDER CBC w/ auto diff 07/20/2025 LABORDER CMP 07/20/2025 LABORDER CBC w/ auto diff 07/23/2025 LABORDER CBC w/ auto diff 07/28/2025 LABORDER CBC w/ auto diff 08/03/2025 LABORDER CMP 08/03/2025 LABORDER CBC w/ auto diff 08/06/2025 LABORDER CMP 08/06/2025 LABORDER LDH panel 08/06/2025 LABORDER CBC w/ auto diff 08/06/2025 LABORDER Uric acid panel 08/07/2025 LABORDER Urinalysis with Reflex Panel 08/10/2025 LABORDER CBC w/ auto diff 08/11/2025 LABORDER CMP 08/11/2025 LABORDER LDH panel 08/11/2025 LABORDER CBC w/ auto diff 08/14/2025 LABORDER CBC w/ auto diff Reason for Visit TREATMENT 2 HR Encounters Date Name 07/06/2025 Constipation (findin g) 07/06/2025 Dyspnea (finding) 07/06/2025 Finding of substance level (finding) 07/06/2025 Hypercholesterolemia (disorder) 07/06/2025 Insomnia 07/06/2025 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/06/2025 Neutropenia 07/06/2025 Normocytic normochro shanell anemia (disorder) 07/06/2025 Rash 07/06/2025 Thrombocytopenic dis order (disorder) 07/06/2025 Urinary urgency Diagnostic Results Date Type Test Units Lower Limit Upper Limit Result Flag Comments Status Ordered By Specimen Source Lab Address 07/06 Smear revie w panel CBC Smear revie w comme nts Consist ent with reporte d results Large and-or giant platele ts present Increas ed anisocy tosis, poikocy tosis, and RBC dimorph ic populat ion FINAL Ulysses Bahena [place] [facility] , [address] [place] [id number] 0 07/06 CBC w/ auto diff WBC K/uL 3.0 8.9 2.8 Low FINAL Ulyssespaula Bahena [place] [facility] , [address] [place] [id number] 0 07/06 CBC w/ auto diff HGB g/dL 11.3 15.2 7.8 Critica l hematol ogy result obtaine d Criti dick Low FINAL Ulyssespaula Bahena [place] [facility] , [address] [place] [id number] 0 07/06 CBC w/ auto diff PLT K/uL 113.0 364.0 168 FINAL Ulyssespaula Bahena [place] [facility] , [address] [place] [id number] 0 07/06 CBC w/ auto diff Plate let, immat ure, fract ion % 0.9 11.2 11.4 High FINAL Ulysses Bahena [place] [facility] , [address] [place] [id number] 0 07/06 CBC w/ auto diff Vania # (ANC) K/uL 1.6 6.6 0.7 Low FINAL Ulysses Bahena [place] [facility] , [address] [place] [id number] 0 07/06 CBC w/ auto diff Vania % % 43.0 74.0 22.9 Low FINAL Ulysses Bahena [place] [facility] , [address] [place] [id number] 0 07/06 CBC w/ auto diff IG % % 0.0 0.5 0.0 FINAL Ulysses Bahena [place] [facility] , [address] [place] [id number] 0 07/06 CBC w/ auto diff IG # K/uL 0.0 0.03 0.00 FINAL Ulysses Bahena [place] [facility] , [address] [place] [id number] 0 07/06 CBC w/ auto diff LY % % 14.0 41.0 60.9 High FINAL Ulysses Bahena [place] [facility] , [address] [place] [id number] 0 07/06 CBC w/ auto diff MO % % 6.0 15.0 12.3 FINAL Ulysses Bahena [place] [facility] , [address] [place] [id number] 0 07/06 CBC w/ auto diff EO % % 0.0 7.0 2.8 FINAL Ulysses Bahena [place] [facility] , [address] [place] [id number] 0 07/06 CBC w/ auto diff BA % % 0.0 2.0 1.1 FINAL Ulysses Bahena [place] [facility] , [address] [place] [id number] 0 07/06 CBC w/ auto diff LY # K/uL 0.4 3.6 1.7 FINAL Ulysses Bahena [place] [facility] , [address] [place] [id number] 0 07/06 CBC w/ auto diff MO # K/uL 0.2 1.3 0.4 FINAL Ulysses Bahena [place] [facility] , [address] [place] [id number] 0 07/06 CBC w/ auto diff EO # K/uL 0.0 0.6 0.1 FINAL Ulysses Bahena [place] [facility] , [address] [place] [id number] 0 07/06 CBC w/ auto diff BA # K/uL 0.0 0.2 0.0 FINAL Ulysses Bahean [place] [facility] , [address] [place] [id number] 0 07/06 CBC w/ auto diff NRBC % #/100W BC 0.0 0.2 2.8 High FINAL Ulysses Bahena [place] [facility] , [address] [place] [id number] 0 07/06 CBC w/ auto diff RBC M/uL 3.9 5.1 3.06 Low FINAL Ulysses Bahena [place] [facility] , [address] [place] [id number] 0 07/06 CBC w/ auto diff HCT % 35.0 48.0 23.4 Low FINAL Ulysses Bahena [place] [facility] , [address] [place] [id number] 0 07/06 CBC w/ auto diff MCV fL 80.0 104.0 76.5 Low FINAL Ulysses Bahena [place] [facility] , [address] [place] [id number] 0 07/06 CBC w/ auto diff MCH pg 26.0 35.0 25.5 Low FINAL Ulysses Bahena [place] [facility] , [address] [place] [id number] 0 07/06 CBC w/ auto diff MCHC g/dL 30.0 35.0 33.3 FINAL Ulysses Bahena [place] [facility] , [address] [place] [id number] 0 07/06 CBC w/ auto diff MPV fL 9.5 13.4 ---- FINAL Ulysses Bahena [place] [facility] , [address] [place] [id number] 0 07/06 CBC w/ auto diff RDW % 11.4 16.1 ---- FINAL Ulysses Bahena [place] [facility] , [address] [place] [id number] 0 07/06 CBC w/ auto diff Auto CBC comme nts Slide review to follow FINAL Ulysses Bahena [place] [facility] , [address] [place] [id number] 0 07/06 Magne sium, mg/dL mg/dL 1.6 2.3 1.9 FINAL Ulysses Bahena * [place] [facility] [place] [facility] , [address] [place] [id number] 0 07/06 Phosp horus panel Phosp horus mg/dL 2.5 4.5 3.6 FINAL Ulysses Bahena * [place] [facility] Oncology , [address] [facility] [place] [id number] 0 07/14 CBC w/ auto diff WBC K/uL 3.0 8.9 1.1 Low FINAL Ruthann [facility] [place] [facility] , [address] [place] [id number] 0 07/14 CBC w/ auto diff HGB g/dL 11.3 15.2 7.0 Critica l hematol ogy result obtaine d Criti dick Low FINAL Ruthann [facility] - [place] [facility] , [address] [place] [id number] 0 07/14 CBC w/ auto diff PLT K/uL 113.0 364.0 120 FINAL [facility] On[facility] , [address] [place] [id number] 0 07/14 CBC w/ auto diff Plate let, immat ure, fract ion % 0.9 11.2 9.7 FINAL [facility] Oncology , [address] [place] [id number] 0 07/14 CBC w/ auto diff Vania # (ANC) K/uL 1.6 6.6 0.4 Critica l hematol ogy result obtaine d Criti dick Low FINAL [facility] [place] [facility] , [address] [place] [id number] 0 07/14 CBC w/ auto diff Vania % % 43.0 [address] [facility] [place] [facility] , [address] [place] [id number] 0 07/14 CBC w/ auto diff IG % % 0.0 0.5 0.0 FINAL Ruthann Dewey [place] [facility] , [address] [place] [id number] 0 07/14 CBC w/ auto diff IG # K/uL 0.0 0.03 0.00 FINAL Ruthann Dewey [place] [facility] , [address] [place] [id number] 0 07/14 CBC w/ auto diff LY % % 14.0 41.0 54.1 High FINAL Ruthann Dewey [place] [facility] , [address] [place] [id number] 0 07/14 CBC w/ auto diff MO % % 6.0 15.0 4.6 Low FINAL Ruthann Dewey [place] [facility] , [address] [place] [id number] 0 07/14 CBC w/ auto diff EO % % 0.0 7.0 5.5 FINAL Ruthann Dewey [place] [facility] , [address] [place] [id number] 0 07/14 CBC w/ auto diff BA % % 0.0 2.0 0.9 FINAL Ruthann Dewey [place] [facility] , [address] [place] [id number] 0 07/14 CBC w/ auto diff LY # K/uL 0.4 3.6 0.6 FINAL Ruthann Dewey [place] [facility] , [address] [place] [id number] 0 07/14 CBC w/ auto diff MO # K/uL 0.2 1.3 0.1 Low FINAL Ruthann Dewey [place] [facility] , [address] [place] [id number] 0 07/14 CBC w/ auto diff EO # K/uL 0.0 0.6 0.1 FINAL Ruthann Dewey [place] [facility] , [address] [place] [id number] 0 07/14 CBC w/ auto diff BA # K/uL 0.0 0.2 0.0 FINAL Ruthann Dewey [place] [facility] , [address] [place] [id number] 0 07/14 CBC w/ auto diff NRBC % #/100W BC 0.0 0.2 0.0 FINAL Ruthann Dewey [place] [facility] , [address] [place] [id number] 0 07/14 CBC w/ auto diff RBC M/uL 3.9 5.1 2.80 Low FINAL Ruthann Dewey [place] [facility] , [address] [place] [id number] 0 07/14 CBC w/ auto diff HCT % 35.0 48.0 21.5 Low FINAL Ruthann Dewey [place] [facility] , [address] [place] [id number] 0 07/14 CBC w/ auto diff MCV fL 80.0 104.0 76.8 Low FINAL Ruthann Dewey [place] [facility] , [address] [place] [id number] 0 07/14 CBC w/ auto diff MCH pg 26.0 35.0 25.0 Low FINAL Ruthann Dewey [facility] Oncology , [address] [place] [id number] 0 07/14 CBC w/ auto diff MCHC g/dL 30.0 35.0 32.6 FINAL Ruthann Dewey [facility] Oncology , [address] [place] [id number] 0 07/14 CBC w/ auto diff MPV fL 9.5 13.4 ---- FINAL Ruthann Dewey [facility] Oncology , [address] [place] [id number] 0 07/14 CBC w/ auto diff RDW % 11.4 16.1 ---- FINAL Ruthann Dewey [facility] Oncology , [address] [place] [id number] 0 07/14 CBC w/ auto diff Auto CBC comme nts Slide review to follow FINAL Ruthann Dewey [facility] Oncology , [address] [place] [id number] 0 07/14 Smear revie w panel CBC Smear revie w comme nts Consist ent with reporte d results Abnorma l Lymphs present Multipl e RBC populat ions, increas ed anisoyt osis, poikocy tosis, and giant plt present FINAL Ruthann Dewey [facility] On[facility] , [address] [place] [id number] 0 07/20 CMP Album in g/dL 3.5 5.0 3.8 FINAL Ulysses Bahena * [facility] , [address] [facility] [id number] 0 07/20 CMP Alkal ine phosp hatas e U/L 36.0 125.0 60 FINAL Ulysses Bahena * [facility] , [address] [facility] [id number] 0 07/20 CMP ALT/S GPT U/L 0.0 34.0 24 FINAL Ulysses Bahena * [facility] , [address] [facility] [id number] 0 07/20 CMP AST/S GOT U/L 14.0 36.0 26 FINAL Ulysses Bahena * [facility] , [address] [facility] [id number] 0 07/20 CMP BUN mg/dL 7.0 17.0 16.0 FINAL Ulyssespaula Bahena * [facility] , [address] [facility] [id number] 0 07/20 CMP Calci um mg/dL 8.4 10.2 8.2 Low FINAL Ulysses Bahena * [facility] , [address] [facility] [id number] 0 07/20 CMP Chlor bonifacio mmol/L 96.0 107.0 111 High FINAL Ulysses Bahena * [facility] , [address] [facility] [id number] 0 07/20 CMP CO2 mmol/L 22.0 30.0 21 Low The expected total allowable error for CO2 is 5.6%. We have seen up to 10% differenc e in values if reported at the end of the 96 hour stability window. Please consider the clinical significa nce of a 2.0-2.5 mmol/L lower reported CO2 value if reported at the end of the 96 hour stability window. FINAL Ulyssespaula Bahena * [facility] , [address] [facility] [id number] 0 07/20 CMP Creat inine mg/dL 0.66 1.25 0.80 FINAL Ulysses Bahena * [facility] , [address] [facility] [address] [id number] 0 07/20 CMP GFR estim ate ml/min /1.73m ^2 72.9 GFR is calculate d using the CKD-EPI equation. FINAL Ulysses Bahena * [facility] , [address] [facility] [address] [id number] 0 07/20 CMP Gluco se mg/dL 74.0 100.0 173 High FINAL Ulysses Bahena * [facility] , [facility] [address] [id number] 0 07/20 CMP Potas sium mmol/L 3.5 5.1 3.7 FINAL Ulysses Bahena * [facility] , [facility] [address] [id number] 0 07/20 CMP Sodiu m mmol/L 137.0 145.0 138 FINAL Ulysses Bahena * [facility] , [facility] [address] [id number] 0 07/20 CMP Bilir ubin, total mg/dL 0.2 1.3 0.2 FINAL Ulysses Bahena * [facility] , [facility] [address] [id number] 0 07/20 CMP Total prote in g/dL 6.3 8.2 6.6 FINAL Ulsyses Bahena * [facility] , [facility] [address] [id number] 0 07/20 Smear revie w panel CBC Smear revie w comme nts Abnorma l Lymphs present Multipl e RBC populat ionsLar ge platele ts present Abnor mal FINAL Ulysses Bahena [place] [facility] , [address] [place] [id number] 0 07/20 CBC w/ auto diff WBC K/uL 3.0 8.9 1.0 Low FINAL Ulyssespaula Bahena [place] [facility] , [address] [place] [id number] 0 07/20 CBC w/ auto diff HGB g/dL 11.3 15.2 8.1 Low FINAL Ulyssespaula Bahena [place] [facility] , [address] [place] [id number] 0 07/20 CBC w/ auto diff PLT K/uL 113.0 364.0 29 Critica l hematol ogy result obtaine d Criti dick Low FINAL Ulysses Bahena [place] [facility] , [address] [place] [id number] 0 07/20 CBC w/ auto diff Plate let, immat ure, fract ion % 0.9 11.2 7.3 FINAL Ulysses Bahena [place] [facility] , [address] [place] [id number] 0 07/20 CBC w/ auto diff Vania # (ANC) K/uL 1.6 6.6 0.1 Critica l hematol ogy result obtaine d Criti dick Low FINAL Ulysses Bahena [place] [facility] , [address] [place] [id number] 0 07/20 CBC w/ auto diff Vania % % 43.0 74.0 6.0 Low FINAL Ulyssespaula Bahena [place] [facility] , [address] [place] [id number] 0 07/20 CBC w/ auto diff IG % % 0.0 0.5 0.0 FINAL Ulysses Bahena [place] [facility] , [address] [place] [id number] 0 07/20 CBC w/ auto diff IG # K/uL 0.0 0.03 0.00 FINAL Ulysses Bahena [place] [facility] , [address] [place] [id number] 0 07/20 CBC w/ auto diff LY % % 14.0 41.0 92.0 High FINAL Ulysses Bahena [place] [facility] , [address] [place] [id number] 0 07/20 CBC w/ auto diff MO % % 6.0 15.0 1.0 Low FINAL Ulysses Bahena [place] [facility] , [address] [place] [id number] 0 07/20 CBC w/ auto diff EO % % 0.0 7.0 1.0 FINAL Ulysses Bahena [place] [facility] , [address] [place] [id number] 0 07/20 CBC w/ auto diff BA % % 0.0 2.0 0.0 FINAL Ulysses Bahena [place] [facility] , [address] [place] [id number] 0 07/20 CBC w/ auto diff LY # K/uL 0.4 3.6 0.9 FINAL Ulysses Bahena [place] [facility] , [address] [place] [id number] 0 07/20 CBC w/ auto diff MO # K/uL 0.2 1.3 0.0 Low FINAL Ulysses Bahena [place] [facility] , [address] [place] [id number] 0 07/20 CBC w/ auto diff EO # K/uL 0.0 0.6 0.0 FINAL Ulysses Bahena [place] [facility] , [address] [place] [id number] 0 07/20 CBC w/ auto diff BA # K/uL 0.0 0.2 0.0 FINAL Ulysses Bahena [place] [facility] , [address] [place] [id number] 0 07/20 CBC w/ auto diff NRBC % #/100W BC 0.0 0.2 0.0 FINAL Ulysses Bahena [place] [facility] , [address] [place] [id number] 0 07/20 CBC w/ auto diff RBC M/uL 3.9 5.1 3.06 Low FINAL Ulysses Bahena [place] [facility] , [address] [place] [id number] 0 07/20 CBC w/ auto diff HCT % 35.0 48.0 24.3 Low FINAL Ulysses Bahena [place] [facility] , [address] [place] [id number] 0 07/20 CBC w/ auto diff MCV fL 80.0 104.0 79.4 Low FINAL Ulysses Bahena [place] [facility] , [address] [place] [id number] 0 07/20 CBC w/ auto diff MCH pg 26.0 35.0 26.5 FINAL Ulysses Bahena [place] [facility] , [address] [place] [id number] 0 07/20 CBC w/ auto diff MCHC g/dL 30.0 35.0 33.3 FINAL Ulysses Bahena [place] [facility] , [address] [place] [id number] 0 07/20 CBC w/ auto diff MPV fL 9.5 13.4 ---- FINAL Ulysses Bahena [place] [facility] , [address] [place] [id number] 0 07/20 CBC w/ auto diff RDW % 11.4 16.1 ---- FINAL Ulysses Bahena [place] [facility] , [address] [place] [id number] 0 07/20 CBC w/ auto diff Auto CBC comme nts Slide review to follow FINAL Ulysses Bahena [place] [facility] , [address] [place] [id number] 0 07/23 Smear revie w panel CBC Smear revie w comme nts Large platele ts present Consist ent with reporte d results Abnor mal FINAL Ulysses Bahena [place] [facility] , [address] [place] [id number] 0 07/23 CBC w/ auto diff WBC K/uL 3.0 8.9 1.3 Low FINAL Ulysses Bahena [place] [facility] , [address] [place] [id number] 0 07/23 CBC w/ auto diff HGB g/dL 11.3 15.2 7.3 Critica l hematol ogy result obtaine d Criti dick Low FINAL Ulysses Bahena [place] [facility] , [address] [place] [id number] 0 07/23 CBC w/ auto diff PLT K/uL 113.0 364.0 16 Critica l hematol ogy result obtaine d Criti dick Low FINAL Ulysses Bahena [place] [facility] , [address] [place] [id number] 0 07/23 CBC w/ auto diff Plate let, immat ure, fract ion % 0.9 11.2 8.7 FINAL Ulysses Bahena [place] [facility] , [address] [place] [id number] 0 07/23 CBC w/ auto diff Vania # (ANC) K/uL 1.6 6.6 0.0 Critica l hematol ogy result obtaine d Criti dick Low FINAL Ulysses Bahena [place] [facility] , [address] [place] [id number] 0 07/23 CBC w/ auto diff Vania % % 43.0 74.0 3.0 Low FINAL Ulyssespaula Bahena [place] [facility] , [address] [place] [id number] 0 07/23 CBC w/ auto diff IG % % 0.0 0.5 0.0 FINAL Ulysses Bahena [place] [facility] , [address] [place] [id number] 0 07/23 CBC w/ auto diff IG # K/uL 0.0 0.03 0.00 FINAL Ulysses Bahena [place] [facility] , [address] [place] [id number] 0 07/23 CBC w/ auto diff LY % % 14.0 41.0 95.5 High FINAL Ulysses Bahena [place] [facility] , [address] [place] [id number] 0 07/23 CBC w/ auto diff MO % % 6.0 15.0 1.5 Low FINAL Ulysses Bahena [place] [facility] , [address] [place] [id number] 0 07/23 CBC w/ auto diff EO % % 0.0 7.0 0.0 FINAL Ulysses Bahena [place] [facility] , [address] [place] [id number] 0 07/23 CBC w/ auto diff BA % % 0.0 2.0 0.0 FINAL Ulysses Bahena [place] [facility] , [address] [place] [id number] 0 07/23 CBC w/ auto diff LY # K/uL 0.4 3.6 1.3 FINAL Ulysses Bahena [place] [facility] , [address] [place] [id number] 0 07/23 CBC w/ auto diff MO # K/uL 0.2 1.3 0.0 Low FINAL Ulysses Bahena [place] [facility] , [address] [place] [id number] 0 07/23 CBC w/ auto diff EO # K/uL 0.0 0.6 0.0 FINAL Ulysses Bahena [place] [facility] , [address] [place] [id number] 0 07/23 CBC w/ auto diff BA # K/uL 0.0 0.2 0.0 FINAL Ulysses Bahena [place] [facility] , [address] [place] [id number] 0 07/23 CBC w/ auto diff NRBC % #/100W BC 0.0 0.2 0.0 FINAL Ulyssespaula Bahena [place] [facility] , [address] [place] [id number] 0 07/23 CBC w/ auto diff RBC M/uL 3.9 5.1 2.73 Low FINAL Ulyssespaula Bahena [place] [facility] , [address] [place] [id number] 0 07/23 CBC w/ auto diff HCT % 35.0 48.0 21.7 Low FINAL [place] [facility] [place] [facility] , [address] [place] [id number] 0 07/23 CBC w/ auto diff MCV fL 80.0 104.0 79.5 Low FINAL [place] [facility] [place] [facility] , [address] [place] [id number] 0 07/23 CBC w/ auto diff MCH pg 26.0 35.0 26.7 FINAL [facility]es Bahena [place] [facility] [place] [facility] , [address] [place] [id number] 0 07/23 CBC w/ auto diff MCHC g/dL 30.0 35.0 33.6 FINAL Ulysses Bahena [place] [facility] [place] [facility] , [address] [place] [id number] 0 07/23 CBC w/ auto diff MPV fL 9.5 13.4 ---- FINAL Ulysses Bahena [place] [facility] [place] [facility] , [address] [place] [id number] 0 07/23 CBC w/ auto diff RDW % 11.4 16.1 ---- FINAL Ulysses Bahena [place] [facility] [place] [facility] , [address] [place] [id number] 0 07/23 CBC w/ auto diff Auto CBC comme nts Slide review to follow FINAL Ulysses Bahena [place] [facility] [place] [facility] , [address] [place] [id number] 0 07/28 Smear revie w panel CBC Smear revie w comme nts Large platele ts present Increas ed anisocy tosis Abnor mal FINAL Ruthann Marssen [place] [facility] [place] [facility] , [address] [place] [id number] 0 07/28 CBC w/ auto diff WBC K/uL 3.0 8.9 1.1 Low FINAL [facility] [place] [facility] , [address] [place] [id number] 0 07/28 CBC w/ auto diff HGB g/dL 11.3 15.2 8.0 Low FINAL Ruthann Dewey [place] [facility] [place] [facility] , [address] [place] [id number] 0 07/28 CBC w/ auto diff PLT K/uL 113.0 364.0 53 Low FINAL Ruthann Marssen [place] [facility] , [address] [place] [id number] 0 07/28 CBC w/ auto diff Plate let, immat ure, fract ion % 0.9 11.2 5.0 FINAL Ruthann Marssen [place] [facility] [place] [facility] , [address] [place] [id number] 0 07/28 CBC w/ auto diff Vania # (ANC) K/uL 1.6 6.6 0.0 Critica l hematol ogy result obtaine d Criti dick Low FINAL Ruthann Dewey [place] [facility] [place] [facility] , [address] [place] [id number] 0 07/28 CBC w/ auto diff Vania % % 43.0 74.0 0.9 Low FINAL Ruthann Dewey [place] [facility] [place] [facility] , [address] [place] [id number] 0 07/28 CBC w/ auto diff IG % % 0.0 0.5 0.0 FINAL Ruthann Dewey [place] [facility] [place] [facility] , [address] [place] [id number] 0 07/28 CBC w/ auto diff IG # K/uL 0.0 0.03 0.00 FINAL Ruthann Dewey [place] [facility] , [address] [place] [id number] 0 07/28 CBC w/ auto diff LY % % 14.0 41.0 97.2 High FINAL Ruthann Dewey [place] [facility] , [address] [place] [id number] 0 07/28 CBC w/ auto diff MO % % 6.0 15.0 1.9 Low FINAL Ruthann Dewey [place] [facility] [place] [facility] , [address] [place] [id number] 0 07/28 CBC w/ auto diff EO % % 0.0 7.0 0.0 FINAL Ruthann Dewey [place] [facility] , [address] [place] [id number] 0 07/28 CBC w/ auto diff BA % % 0.0 2.0 0.0 FINAL Ruthann Dewey [place] [facility] , [address] [place] [id number] 0 07/28 CBC w/ auto diff LY # K/uL 0.4 3.6 1.0 FINAL Ruthann Dewey [place] [facility] [place] [facility] , [address] [place] [id number] 0 07/28 CBC w/ auto diff MO # K/uL 0.2 1.3 0.0 Low FINAL Ruthann Dewey [place] [facility] [place] [facility] , [address] [place] [id number] 0 07/28 CBC w/ auto diff EO # K/uL 0.0 0.6 0.0 FINAL Ruthann Dewey [place] [facility] [place] [facility] , [address] [place] [id number] 0 07/28 CBC w/ auto diff BA # K/uL 0.0 0.2 0.0 FINAL Ruthann Dewey [place] [facility] [place] [facility] , [address] [place] [id number] 0 07/28 CBC w/ auto diff NRBC % #/100W BC 0.0 0.2 0.0 FINAL Ruthann Dewey [place] [facility] , [address] [place] [id number] 0 07/28 CBC w/ auto diff RBC M/uL 3.9 5.1 2.93 Low FINAL Ruthann Dewey [place] [facility] , [address] [place] [id number] 0 07/28 CBC w/ auto diff HCT % 35.0 48.0 24.2 Low FINAL Ruthann Dewey [place] [facility] , [address] [place] [id number] 0 07/28 CBC w/ auto diff MCV fL 80.0 104.0 82.6 FINAL Ruthann Dewey [place] [facility] , [address] [place] [id number] 0 07/28 CBC w/ auto diff MCH pg 26.0 35.0 27.3 FINAL Ruthann Dewey [place] [facility] , [address] [place] [id number] 0 07/28 CBC w/ auto diff MCHC g/dL 30.0 35.0 33.1 FINAL Ruthann Dewey [place] [facility] , [address] [place] [id number] 0 07/28 CBC w/ auto diff MPV fL 9.5 13.4 ---- FINAL Ruthann Dewey [place] [facility] , [address] [place] [id number] 0 07/28 CBC w/ auto diff RDW % 11.4 16.1 27.00 High FINAL Ruthann Dewey [place] [facility] , [address] [place] [id number] 0 07/28 CBC w/ auto diff Auto CBC comme nts Slide review to follow FINAL Ruthann Dewey [place] [facility] , [address] [place] [id number] 0 08/03 Smear revie w panel CBC Smear revie w comme nts Increas ed anisocy tosisLa rge platele ts present Consist ent with reporte d results Abnor mal FINAL Ruthann Dewey [place] [facility] [place] [facility] , [address] [place] [id number] 0 08/03 CBC w/ auto diff WBC K/uL 3.0 8.9 0.6 Critica l hematol ogy result obtaine d Criti dick Low FINAL Ruthann Dewey [place] [facility] , [address] [place] [id number] 0 08/03 CBC w/ auto diff HGB g/dL 11.3 15.2 8.0 Low FINAL Ruthann Dewey [place] [facility] , [address] [place] [id number] 0 08/03 CBC w/ auto diff PLT K/uL 113.0 364.0 646 High FINAL Ruthann Dewey [place] [facility] [place] [facility] , [address] [place] [id number] 0 08/03 CBC w/ auto diff Vania # (ANC) K/uL 1.6 6.6 0.0 Critica l hematol ogy result obtaine d Criti dick Low FINAL Ruthann Dewey [place] [facility] , [address] [place] [id number] 0 08/03 CBC w/ auto diff Vania % % 43.0 74.0 6.3 Low FINAL Ruthann Dewey [place] [facility] , [address] [place] [id number] 0 08/03 CBC w/ auto diff IG % % 0.0 0.5 1.6 High FINAL Ruthann Dewey [place] [facility] , [address] [place] [id number] 0 08/03 CBC w/ auto diff IG # K/uL 0.0 0.03 0.01 FINAL Ruthann Dewey [place] [facility] , [address] [place] [id number] 0 08/03 CBC w/ auto diff LY % % 14.0 41.0 88.9 High FINAL Ruthann Dewey [place] [facility] , [address] [place] [id number] 0 08/03 CBC w/ auto diff MO % % 6.0 15.0 3.2 Low FINAL Ruthann Dewey [place] [facility] , [address] [place] [id number] 0 08/03 CBC w/ auto diff EO % % 0.0 7.0 0.0 FINAL Ruthann Dewey [place] [facility] , [address] [place] [id number] 0 08/03 CBC w/ auto diff BA % % 0.0 2.0 0.0 FINAL Ruthann Dewey [place] [facility] , [address] [place] [id number] 0 08/03 CBC w/ auto diff LY # K/uL 0.4 3.6 0.6 FINAL Ruthann Dewey [place] [facility] , [address] [place] [id number] 0 08/03 CBC w/ auto diff MO # K/uL 0.2 1.3 0.0 Low FINAL Ruthann Dewey [place] [facility] , [address] [place] [id number] 0 08/03 CBC w/ auto diff EO # K/uL 0.0 0.6 0.0 FINAL Ruthann Dewey [place] [facility] , [address] [place] [id number] 0 08/03 CBC w/ auto diff BA # K/uL 0.0 0.2 0.0 FINAL Ruthann Dewey [place] [facility] , [address] [place] [id number] 0 08/03 CBC w/ auto diff NRBC % #/100W BC 0.0 0.2 0.0 FINAL Ruthann Dewey [place] [facility] , [address] [place] [id number] 0 08/03 CBC w/ auto diff RBC M/uL 3.9 5.1 2.41 Low FINAL Ruthann Dewey [place] [facility] , [address] [place] [id number] 0 08/03 CBC w/ auto diff HCT % 35.0 48.0 22.8 Low FINAL Ruthann Dewey [facility] [place] [facility] , [address] [place] [id number] 0 08/03 CBC w/ auto diff MCV fL 80.0 104.0 94.6 FINAL [facility] [place] [facility] , [address] [place] [id number] 0 08/03 CBC w/ auto diff MCH pg 26.0 35.0 33.2 FINAL Ruthann Dewey [place] [facility] , [address] [place] [id number] 0 08/03 CBC w/ auto diff MCHC g/dL 30.0 35.0 35.1 High FINAL Ruthann Dewey [place] [facility] , [address] [place] [id number] 0 08/03 CBC w/ auto diff MPV fL 9.5 13.4 8.6 Low FINAL [facility] , [address] [place] [id number] 0 08/03 CBC w/ auto diff RDW % 11.4 16.1 20.00 High FINAL Ruthann Dewey [facility] , [address] [place] [id number] 0 08/03 CBC w/ auto diff Auto CBC comme nts Slide review to follow FINAL Ruthann Dewey [facility] , [address] [place] [id number] 0 08/03 CMP Album in g/dL 3.5 5.0 3.9 FINAL Ruthann Dewey * [facility] , [address] [facility] [id number] 0 08/03 CMP Alkal ine phosp hatas e U/L 36.0 125.0 76 FINAL Ruthann Dewey * [facility] , [address] [facility] [id number] 0 08/03 CMP ALT/S GPT U/L 0.0 34.0 24 FINAL Ruthann Dewey * [facility] , [address] [facility] [id number] 0 08/03 CMP AST/S GOT U/L 14.0 36.0 32 FINAL Ruthann Dewey * [facility] , [address] [facility] [id number] 08/03 CMP BUN mg/dL 7.0 17.0 9.0 FINAL Ruthann Dewey * [facility] , [address] [facility] [id number] 0 08/03 CMP Calci um mg/dL 8.4 10.2 8.5 FINAL Ruthann Dewey * [facility] , [address] [facility] [id number] 0 08/03 CMP Chlor bonifacio mmol/L 96.0 107.0 104 FINAL Ruthann Dewey * [facility] , [address] [facility] [id number] 0 08/03 CMP CO2 mmol/L 22.0 30.0 23 The expected total allowable error for CO2 is 5.6%. We have seen up to 10% differenc e in values if reported at the end of the 96 hour stability window. Please consider the clinical significa nce of a 2.0-2.5 mmol/L lower reported CO2 value if reported at the end of the 96 hour stability window. FINAL Ruthann Dewey * [facility] , [address] [facility] [id number] 0 08/03 CMP Creat inine mg/dL 0.66 1.25 0.70 FINAL Ruthann Dewey * [facility] , [address] [facility] [id number] 0 08/03 CMP GFR estim ate ml/min /1.73m ^2 85.6 GFR is calculate d using the CKD-EPI equation. FINAL Ruthann Dewey * [facility] , [address] [facility] [id number] 0 08/03 CMP Gluco se mg/dL 74.0 100.0 163 High FINAL Ruthann Dewey * [facility] , [address] [facility] [id number] 0 08/03 CMP Potas sium mmol/L 3.5 5.1 3.7 FINAL Ruthann Dewey * [facility] , [address] [facility] [id number] 0 08/03 CMP Sodiu m mmol/L 137.0 145.0 137 FINAL Ruthann Dewey * [facility] , [address] [facility] [id number] 0 08/03 CMP Bilir ubin, total mg/dL 0.2 1.3 0.3 FINAL Ruthann Dewey * [facility] , [address] [facility] [id number] 0 08/03 CMP Total prote in g/dL 6.3 8.2 7.3 FINAL Ruthann Dewey * [facility] , [address] [facility] [id number] 0 08/06 Smear revie w panel CBC Smear revie w comme nts Abnorma l Lymphs present Large and giant platele ts present Abnor mal FINAL Ulysses Bahena [facility] , [address] [facility] [id number] 0 08/06 CMP Album in g/dL 3.5 5.0 3.7 FINAL Ulysses Bahena * [facility] , [address] [facility] [id number] 0 08/06 CMP Alkal ine phosp hatas e U/L 36.0 125.0 79 FINAL Ulysses Bahena * [facility] , [address] [facility] [id number] 0 08/06 CMP ALT/S GPT U/L 0.0 34.0 29 FINAL Ulysses Bahena * [facility] , [address] [facility] [id number] 0 08/06 CMP AST/S GOT U/L 14.0 36.0 39 High FINAL Ulysses Bahena * [facility] [address] [facility] [id number] 0 08/06 CMP BUN mg/dL 7.0 17.0 12.0 FINAL Ulyssespaula Bahena * [facility] [place] [facility] [address] [id number] 0 08/06 CMP Calci um mg/dL 8.4 10.2 8.3 Low FINAL Ulyssespaula Bahena * [facility] [place] [address] [place] [address] [address] [id number] 0 08/06 CMP Chlor bonifacio mmol/L 96.0 107.0 106 FINAL Ulyssespaula Bahena * [facility] [place] [facility] [address] [id number] 0 08/06 CMP CO2 mmol/L 22.0 30.0 21 Low The expected total allowable error for CO2 is 5.6%. We have seen up to 10% differenc e in values if reported at the end of the 96 hour stability window. Please consider the clinical significa nce of a 2.0-2.5 mmol/L lower reported CO2 value if reported at the end of the 96 hour stability window. FINAL Ulysses Bahena * [facility] , [facility] [address] [id number] 0 08/06 CMP Creat inine mg/dL 0.66 1.25 0.70 FINAL Ulyssespaula Bahena * [facility] [place] [facility] [address] [id number] 0 08/06 CMP GFR estim ate ml/min /1.73m ^2 85.6 GFR is calculate d using the CKD-EPI equation. FINAL Ulysses Bahena * [place] [facility] [place] [facility] , [address] [facility] [id number] 0 08/06 CMP Gluco se mg/dL 74.0 100.0 101 High FINAL Ulysses Bahena * [facility] , [address] [facility] [id number] 0 08/06 CMP Potas sium mmol/L 3.5 5.1 3.9 FINAL Ulysses Bahena * [facility] , [address] [facility] [id number] 0 08/06 CMP Sodiu m mmol/L 137.0 145.0 137 FINAL Ulysses Bahena * [facility] , [address] [facility] [id number] 0 08/06 CMP Bilir ubin, total mg/dL 0.2 1.3 0.4 FINAL Ulysses Bahena * [facility] , [address] [facility] [id number] 0 08/06 CMP Total prote in g/dL 6.3 8.2 7.3 FINAL Ulysses Bahena * [facility] , [address] [facility] [id number] 0 08/06 Uric acid panel Uric acid mg/dL 2.5 6.2 3.6 FINAL Ulysses Bahena * [facility] , [address] [facility] [id number] 0 08/06 CBC w/ auto diff WBC K/uL 3.0 8.9 1.0 Low FINAL [facility]es [facility] , [address] [facility] [id number] 0 08/06 CBC w/ auto diff HGB g/dL 11.3 15.2 7.4 Critica l hematol ogy result obtaine d Criti dick Low FINAL Ulysses Bahena [place] [facility] , [address] [place] [id number] 0 08/06 CBC w/ auto diff PLT K/uL 113.0 364.0 630 High FINAL Ulysses Bahena [place] [facility] , [address] [place] [id number] 0 08/06 CBC w/ auto diff Vania # (ANC) K/uL 1.6 6.6 0.1 Critica l hematol ogy result obtaine d Criti dick Low FINAL Ulysses Bahena [place] [facility] , [address] [place] [id number] 0 08/06 CBC w/ auto diff Vania % % 43.0 74.0 7.4 Low FINAL Ulysses Bahena [place] [facility] , [address] [place] [id number] 0 08/06 CBC w/ auto diff IG % % 0.0 0.5 0.0 FINAL Ulysses Bahena [place] [facility] , [address] [place] [id number] 0 08/06 CBC w/ auto diff IG # K/uL 0.0 0.03 0.00 FINAL Ulysses Bahena [place] [facility] , [address] [place] [id number] 0 08/06 CBC w/ auto diff LY % % 14.0 41.0 88.4 High FINAL Ulysses Bahena [place] [facility] , [address] [place] [id number] 0 08/06 CBC w/ auto diff MO % % 6.0 15.0 4.2 Low FINAL Ulysses Bahena [place] [facility] , [address] [place] [id number] 0 08/06 CBC w/ auto diff EO % % 0.0 7.0 0.0 FINAL Ulysses Bahena [place] [facility] , [address] [place] [id number] 0 08/06 CBC w/ auto diff BA % % 0.0 2.0 0.0 FINAL Ulysses Bahena [place] [facility] , [address] [place] [id number] 0 08/06 CBC w/ auto diff LY # K/uL 0.4 3.6 0.8 FINAL Ulysses Bahena [place] [facility] , [address] [place] [id number] 0 08/06 CBC w/ auto diff MO # K/uL 0.2 1.3 0.0 Low FINAL Ulysses Bahena [place] [facility] , [address] [place] [id number] 0 08/06 CBC w/ auto diff EO # K/uL 0.0 0.6 0.0 FINAL Ulysses Bahena [place] [facility] , [address] [place] [id number] 0 08/06 CBC w/ auto diff BA # K/uL 0.0 0.2 0.0 FINAL Ulysses Bahena [place] [facility] , [address] [place] [id number] 0 08/06 CBC w/ auto diff NRBC % #/100W BC 0.0 0.2 0.0 FINAL Ulysses Bahena [place] [facility] , [address] [place] [id number] 0 08/06 CBC w/ auto diff RBC M/uL 3.9 5.1 2.26 Low FINAL Ulysses Bahena [place] [facility] , [address] [place] [id number] 0 08/06 CBC w/ auto diff HCT % 35.0 48.0 21.6 Low FINAL Ulysses Bahena [place] [facility] , [address] [place] [id number] 0 08/06 CBC w/ auto diff MCV fL 80.0 104.0 95.6 FINAL Ulysses Bahena [place] [facility] , [address] [place] [id number] 0 08/06 CBC w/ auto diff MCH pg 26.0 35.0 32.7 FINAL Ulysses Bahena [place] [facility] , [address] [place] [id number] 0 08/06 CBC w/ auto diff MCHC g/dL 30.0 35.0 34.3 FINAL Ulysses Bahena [place] [facility] , [address] [place] [id number] 0 08/06 CBC w/ auto diff MPV fL 9.5 13.4 8.5 Low FINAL Ulysses Bahena [place] [facility] , [address] [place] [id number] 0 08/06 CBC w/ auto diff RDW % 11.4 16.1 20.90 High FINAL Ulysses Bahena [place] [facility] , [address] [place] [id number] 0 08/06 CBC w/ auto diff Auto CBC comme nts Slide review to follow FINAL Ulysses Bahena [place] [facility] , [address] [place] [id number] 0 08/07 Nitri te (ua) Negativ e FINAL Ulysses Bahena [place] [facility] , [address] [place] [id number] 0 08/07 Leuko cyte christal ase (ua), qual Negativ e FINAL Ulysses Bahena [place] [facility] , [address] [place] [id number] 0 08/07 UA comme nt 1 Dipstic k Negativ e-No Microsc opic Ordered FINAL Ulysses Bahena [place] [facility] , [address] [place] [id number] 0 08/07 Color (ua) Yellow FINAL Ulysses Bahena [place] [facility] [place] [facility] , [address] [place] [id number] 0 08/07 Appea mini (ua) Clear FINAL Ulysses Bahena [place] [facility] [place] [facility] , [address] [place] [id number] 0 08/07 Gluco se (ua), qual Negativ e FINAL Ulysses Bahena [place] [facility] [place] [facility] , [address] [place] [id number] 0 08/07 Bilir ubin (ua) Negativ e FINAL Ulysses Bahena [place] [facility] , [address] [place] [id number] 0 08/07 Urina lysis , aceto ne or keton e rufus s measu remen t Negativ e FINAL Ulysses [facility] , [address] [place] [id number] 0 08/07 Speci fic gravi ty (ua) 1.005 1.02 1.015 FINAL Ulysses [facility] [place] [facility] , [address] [place] [id number] 0 08/07 Blood (ua) Negativ e FINAL Ulysses [facility] [place] [facility] , [address] [place] [id number] 0 08/07 pH (ua) 5.0 8.0 7.0 FINAL Ulysses [facility] [place] [facility] , [address] [place] [id number] 0 08/07 Prote in (ua) Negativ e FINAL Ulysses [facility] [place] [facility] , [address] [place] [id number] 0 08/07 Urobi linog en (ua) 0.2 1.0 0.2 FINAL Ulysses [facility] [place] [facility] , [address] [place] [id number] 0 Medications Date Name Route Dose Frequency [...] disorder (disorder) Active Neutropenia Active Insomnia Active Vital Signs Date Type Value 07/06/2025 Heart Beat 94.00 07/06/2025 Body Temperature 97.20 07/06/2025 Oxygen Saturation 95.00 07/06/2025 Intravascular Systolic 160 07/06/2025 Intravascular Diastolic 68 07/06/2025 Pain Scale 0.00 07/06/2025 Weight 165.00 07/06/2025 Height 62.50 07/06/2025 Respiratory Rate 16.00 07/06/2025 BSA 1.77 07/06/2025 BMI 29.70 07/07/2025 Body Temperature 98.40 07/07/2025 Oxygen Saturation 97.00 07/07/2025 Intravascular Systolic 114 07/07/2025 Intravascular Diastolic 53 07/07/2025 Pain Scale 0.00 07/07/2025 Height 62.50 07/07/2025 Heart Beat 74.00 07/08/2025 Height 62.50 07/08/2025 Oxygen Saturation 100.00 07/08/2025 Respiratory Rate 18.00 07/08/2025 Heart Beat 83.00 07/08/2025 Body Temperature 98.00 07/08/2025 Pain Scale 0.00 07/08/2025 Intravascular Systolic 141 07/08/2025 Intravascular Diastolic 72 07/09/2025 Height 62.50 07/09/2025 Pain Scale 0.00 07/09/2025 Intravascular Systolic 146 07/09/2025 Intravascular Diastolic 63 07/09/2025 Oxygen Saturation 100.00 07/09/2025 Respiratory Rate 16.00 07/09/2025 Heart Beat 94.00 07/09/2025 Body Temperature 97.50 07/10/2025 Body Temperature 97.60 07/10/2025 Heart Beat 76.00 07/10/2025 Respiratory Rate 18.00 07/10/2025 Oxygen Saturation 99.00 07/10/2025 Intravascular Systolic 131 07/10/2025 Intravascular Diastolic 69 07/10/2025 Pain Scale 0.00 07/10/2025 Height 62.50 07/14/2025 Body Temperature 97.80 07/14/2025 Heart Beat 80.00 07/14/2025 Respiratory Rate 16.00 07/14/2025 Oxygen Saturation 100.00 07/14/2025 Intravascular Systolic 132 07/14/2025 Intravascular Diastolic 58 07/14/2025 Pain Scale 0.00 07/14/2025 Weight 163.40 07/14/2025 Height 62.50 07/14/2025 BMI 29.41 07/14/2025 BSA 1.76 07/20/2025 Pain Scale 0.00 07/20/2025 Weight 162.30 07/20/2025 Height 62.50 07/20/2025 BMI 29.21 07/20/2025 BSA 1.76 07/20/2025 Oxygen Saturation 99.00 07/20/2025 Respiratory Rate 16.00 07/20/2025 Heart Beat 78.00 07/20/2025 Body Temperature 97.30 07/20/2025 Intravascular Systolic 142 07/20/2025 Intravascular Diastolic 70 08/03/2025 Oxygen Saturation 98.00 08/03/2025 Respiratory Rate 16.00 08/03/2025 Heart Beat 81.00 08/03/2025 Body Temperature 99.20 08/03/2025 Intravascular Systolic 152 08/03/2025 Intravascular Diastolic 88 08/03/2025 BSA 1.77 08/03/2025 BMI 29.63 08/03/2025 Height 62.50 08/03/2025 Weight 164.60 08/03/2025 Pain Scale 3.00 08/07/2025 BMI 29.99 08/07/2025 Height 62.50 08/07/2025 Weight 166.60 08/07/2025 Pain Scale 3.00 08/07/2025 BSA 1.78 08/07/2025 Heart Beat 96.00 08/07/2025 Respiratory Rate 16.00 08/07/2025 Oxygen Saturation 100.00 08/07/2025 Intravascular Systolic 152 08/07/2025 Intravascular Diastolic 64 08/07/2025 Body Temperature 98.70 Notes Section * Med Onc Follow-up Note Patient Name: NAUN DINERO Date Of : 1940 Today's Provider:?Ruthann Dewey RN, ASSURANCE SENIOR MANAGER, MA, OCN Date of Service:?07/06/2025 Attending Physician:?Ulysses Bahena (Hematology/Oncology) Referring Provider: Lara Colbert MD HEMATOLOGY/ MEDICAL ONCOLOGY FOLLOW UP VISIT Reason for Visit 1.?? Here for cycle 1 day 1??of decitabine and venetoclax??for [...] from Paxil??(22 years ago) 5. Constipation?? Plan 1.?Start decitabine??days 1???5 q. 28 2.?? Venetoclax??400 mg??on days 1???14 q. 28 3.?? Blood transfusion for hemoglobin of 7.0??or less 4.?? Start acyclovir??and Levaquin for now for neutropenia 5. ??If further neutropenic will need to add an antifungal prophylaxis understanding??interaction with venetoclax 6. ??Senokot as needed for constipation 7. ??Start Lexapro 10 mg p.o. daily??for depression/anxiety 8.?? Emotional support needed Advanced Care Planning Not discussed at this visit. Pain Scale on Today's Visit 0 Pain Plan on Today's Visit Date of Service: 07/06/2025 Pain Scale (0-10): 0 Pain Treatment Plan: No pain reported Comment: Smoking Status Smoking Tobacco : Never smoker; Smokeless Tobacco : Never used smokeless tobacco; Vaping : Never vaped Depression Screening Tool Status Was screened; Outcome positive: No; Screening Date: 07/06/2025; Screening Tool: PRIME MD-PHQ2; Total depression score: 0 History of Present Illness 1.?? 85-year-old presented [...] clones; TP53 deletion, and gain of CEP17 Interval History Naun is in the??office today??to initiate treatment. ??Her daughter is present with her.?? Theyhave several excellent questions regarding the treatment plan and side effect profile.?? She does report moderate fatigue. ??In spite of blood transfusion 2 weeks ago she noted no significant improvement??in her symptoms.?? There is been no recent fevers or infectious symptoms.?? She is tearful today as she anticipates upcoming treatment. Naun states when her was ill 22 years ago??she did require an antidepressant during that time to help with her spirits.?? She thinks she might have been on Paxil.?? She feels her anxiety and depression is notable??and feels treatment for this would be??helpful.?? She is in agreement to initiate a new antidepressant??to help with her spirits. In regard to??her bowels??she has been using Senokot daily. ??She did use??Senokot last evening andthen drink coffee this morning.?? She also had??yogurt and granola. ??After this she had??for diarrhea stools. ??She had not taken her venetoclax prior to this. Review of Systems Remaining 14 point comprehensive review of systems within normal limits. NCCN Distress Thermometer and Problem List were collected and documented in the patient chart.?? Remarkable symptoms and concerns were discussed with the patient.?? Any additional follow-up is indicated in the plan. Past Medical and Surgical History DM, hypercholesterolemia, recently new blood pressure medication Current Medications Medication List Name Date Sennosides Oral 06/23/2025 Lexapro (Escitalopram Oral) 07/06/2025 Venetoclax Oral 06/23/2025 Losartan Oral 06/23/2025 Calcium 600 + D(3) (Calcium-Cholecalcife rol Oral 600 mg-10 mcg (400 unit)) 06/23/2025 Glucosamine Oral 06/23/2025 Acyclovir Oral 06/23/2025 Allopurinol Oral 06/23/2025 Venetoclax Oral 06/23/2025 Aspirin Oral 06/23/2025 Metformin Oral 06/23/2025 Prochlorperazine Oral 06/23/2025 Fluticasone Inhaler 220 mcg/actuation Simvastatin Oral 06/23/2025 Levofloxacin Oral 06/26/2025 Multivitamins Oral Tablet 06/23/2025 Ventolin (Albuterol HFA Inhaler 90 mcg/a ctuation) 06/23/2025 Allergies Latex (substance) and amoxicillin Family History Father: cancer Social History , 2 daughters and 1 son. 8 grandchildren. 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 Restricted in physically strenuous activity, but ambulatory and able to carry out work of a light or sedentary nature (e.g., light housework, office work). (Date: 07/06/2025) Karnofsky: Not recorded Physical Exam GENERAL:??Alert and oriented x 3. ??In no apparent distress. ??Seated comfortably mood is appropriate. ??Appears stated age HEENT:??Pupils equal round reactive to light. ??Sclera nonicteric. ??Conjunctive are pink. LYMPH:??No palpable cervical supraclavicular axillary lymphadenopathy RESP:??No dyspnea with conversation lungs are clear to auscultation CARDIAC:??Regular rate and rhythm no ectopic beats or murmurs noted ABDOMEN:??Soft and nontender no masses or hepatosplenomegaly EXT:??Lower extremities are??without any significant edema SKIN:??Slightly pale no rashes no petechiae. ??No significant bruising NEURO:??Nonfocal gait is intact Genetics/Molecular/Biomarkers * MDS-U - unclassifiable myelodysplastic syndrome ( SCT Eligible: No; IPSS-R Score: High risk (>4.5 to 6 points); IDH1 status: Wild type; ) Additional Labs, Imaging, and Other Studies Lab Results CBC Lab Results 07/06/2025 07/02/2025 06/23/2025 06/03/2025 05/25/20 25 05/19/2025 CBC WBC x 10^3/uL 2.8 (L) 3.0 2.6 (L) 5.1 RBC x 10^6/uL 3.06 (L) 3.11 (L) 3.48 (L) 2.96 (L) NRBC % /100 wbc 2.8 (H) 6.9 (H) 2.7 (H) 5.7 (H) HGB g/dL 7.8 Critical hematology result obtained (LL) 7.8 Critical hematology result obtained (LL) 9.0 (L) 7.4 Critical hematology result obtained (LL) HCT % 23.4 (L) 24.5 (L) 28.0 (L) 23.2 (L) MCV fL 76.5 (L) 78.8 (L) 80.5 78.4 (L) MCH pg 25.5 (L) 25.1 (L) 25.9 (L) 25.0 (L) MCHC g/dL 33.3 31.8 32.1 31.9 RDW % ---- ---- ---- ---- PLT x 10^3/uL 168 222 171 262 MPV fL ---- ---- ---- ---- Platelet, immature, fraction % 11.4 (H) 9.5 9.9 9.5 Vania % 22.9 (L) 24.0 (L) 22.8 (L) 22.9 (L) LY % 60.9 (H) 51.0 (H) 53.9 (H) 58.9 (H) MO % 12.3 18.4 (H) 17.4 (H) 14.2 EO % 2.8 4.6 3.9 2.8 IG % 0.0 0.0 0.4 0.2 Vania # (ANC) x 10^3/uL 0.7 (L) 0.7 (L) 0.6 (L) 1.2 (L) BA % 1.1 2.0 1.6 1.0 MO # x 10^3/uL 0.4 0.6 0.5 0.7 EO # x 10^3/uL 0.1 0.1 0.1 0.1 BA # x 10^3/uL 0.0 0.1 0.0 0.1 IG # x 10^3/uL 0.00 0.00 0.01 0.01 LY # x 10^3/uL 1.7 1.6 1.4 3.0 CBC Smear review comments Consistent with reported results Large and-or giant [...] Slide review to follow Chemistries Lab Results 07/06/2025 07/02/2025 06/23/2025 06/03/2025 05/25/20 25 05/19/2025 Chemistries Glucose mg/dL 111 (H) 125 (H) BUN mg/dL 21.0 (H) 23.0 (H) Creatinine mg/dL 0.90 0.90 Sodium mmol/L 139 136 (L) Potassium mmol/L 4.2 4.2 Chloride mmol/L 109 (H) 102 CO2 mmol/L 21 (L) 24 Calcium mg/dL 8.9 9.4 Albumin g/dL 4.5 4.8 Total protein g/dL 7.6 8.2; 7.9 Bilirubin, total mg/dL 0.4 0.6 Alkaline phosphatase U/L 52 52 AST/SGOT U/L 38 (H) 49 (H) ALT/SGPT U/L 20 24 LDH U/L 185 182 Uric acid mg/dL 5.9 6.4 (H) GFR estimate mL/min/1.73m2 63.4 63.4 ? Lab Results 07/06/2025 07/02/2025 06/23/2025 06/03/2025 05/25/20 25 05/19/2025 Anemia Labs Iron ug/dL 123 TIBC ug/dL 312 Ferritin ng/mL 187.00 Unbound iron capacity ug/dL 189 Iron, % saturation % 39 Reticulocyte count % 2.44 (H) Reticulocyte, absolute x 10^6/mL 0.07 Immature reticulocyte fraction, % 7.60 Reticulocyte cellular hemoglobin pg 20.7 (L) Surveys/Consents/Other Discussions Maco Beavers, JARET, ASSURANCE SENIOR MANAGER, MA, OCN CC: ? Electronically signed by Ruthann Dewey RN, ASSURANCE SENIOR MANAGER, MA, OCN 07/06/2025 16:59 CDT
--- OUTSIDE RECORDS SUMMARY | 2025-08-07 10:09 | XMS_ITS ---
Author Name Interface, [id number] lity Address [address] [place], [place] [address] [place] [address] [facility] Address [address] [place] [id number] Allergies and Adverse Reactions Plan Reason for Visit Encounters Diagnostic Results Medications Problems Notes Section
--- OUTSIDE RECORDS SUMMARY | 2025-08-07 10:09 | XMS_ITS | Encounter Summary ---
Author Organization [facility] Address [address] [place] [address]. [place] [address] Care Team Providers Care Steam Press Operator Name Role Phone Lara Colbert MD Primary Care Provider + [phone] Lara Colbert MD Unavailable [phone] Henry Pratt MD Unavailable Henry Pratt MD Unavailable Reason for Visit * Reason Onset Date Comments Call to schedule test 04/03/2025 Encounter Details Date Type Department Care Team (Late st Contact Info) Description 04/03/2025 Telephone [facility] [address] [place] [id number] Abstract, Provider Call to schedule test Social History Tobacco Use Types Packs/Day Years [...] on file Legal 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 Pratt. She would also like to schedule same day lab- BMP. P: [phone] Action Taken: Other: CARDIO Travel Screening: Not Applicable Date of Service: documented in this encounter Plan of Treatment Not on file documented as of this encounter Visit Diagnoses Not on filedocumented in this encounter Care Teams Steam Press Operator Relationship Specialty Start Date End Date Lara Colbert MD [address] [facility] [address] [place] [address] PCP - General Family Medicine 02/07/22 Lara Colbert MD [address] [facility] [address] [place] [address] Assigned PCP 04/02/22 Henry Pratt MD [address] [facility] [address] [place] [address] Cardiovascular Disease 02/10/25 Henry Pratt MD [address] [facility] [address] [place] [address] Assigned Heart and Vascular Provider 04/17/25 documented as of this encounter
--- OUTSIDE RECORDS SUMMARY | 2025-08-07 10:09 | XMS_ITS | CCD ---
Author Name Interface, [id number] lity Address [address] [facility] [address] [place] [address] [facility] Address [facility] [facility] [address] [place] [address] Care Team Providers Care Camp Guard Name Role Phone Josef APRDO, Ulysses Grider Unavailable Allergies and Adverse Reactions Care Plan Reason for Visit Encounters Functional Status Immunizations Diagnostic Results Medications Administered Medications Patient Education Problems Procedures Social History Visits Vital Signs Notes Section
--- OUTSIDE RECORDS SUMMARY | 2025-08-07 10:10 | XMS_ITS ---
Author Name Interface, [id number] lity Address [address] [facility] [address] [facility] Address [address] [address] Allergies and Adverse Reactions Medication/Group Name Reaction Severity Date amoxicillin 08/07/2025 Latex (substance) 08/07/2025 Plan Date Type Value 08/03/2025 APPOINTMENT TREATMENT 2 HR 08/03/2025 APPOINTMENT OV 20 MIN 08/03/2025 APPOINTMENT PORT DRAW 15 MIN 08/03/2025 APPOINTMENT PORT DRAW 15 MIN 08/03/2025 APPOINTMENT TREATMENT 2 HR 08/03/2025 APPOINTMENT OV 20 MIN 08/03/2025 APPOINTMENT PORT DRAW 15 MIN 08/03/2025 APPOINTMENT TREATMENT 2 HR 08/03/2025 APPOINTMENT OV 30 MIN 08/03/2025 LABORDER CMP 08/03/2025 LABORDER CBC w/ auto diff Reason for Visit TREATMENT 2 HR Encounters Date Name 08/03/2025 Diabetes mellitus ty pe 2 (disorder) 08/03/2025 MDS-U - unclassifiab le myelodysplastic syndrome 08/03/2025 Neutropenia 08/03/2025 Normocytic normochro shanell anemia (disorder) 08/03/2025 Thrombocytopenic dis order (disorder) Diagnostic Results Date Type Test Units Lower Limit Upper Limit Result Flag Comments Status Ordered By Specimen Source Lab Address 08/03 CMP Album in g/dL 3.5 5.0 3.9 FINAL Ruthann Dewey * [facility] , [address] [facility] [id number] 08/03 CMP Alkal ine phosp hatas e U/L 36.0 125.0 76 FINAL Ruthann Dewey * [facility] , [address] [facility] [id number] 08/03 CMP ALT/S GPT U/L 0.0 34.0 24 FINAL Ruthann Dewey * [facility] , [address] [facility] [id number] 08/03 CMP AST/S GOT U/L 14.0 36.0 32 FINAL Ruthann Dewey * [facility] , [address] [facility] [id number] 08/03 CMP BUN mg/dL 7.0 17.0 9.0 FINAL Ruthann Dewey * [facility] , [address] [facility] [id number] 08/03 CMP Calci um mg/dL 8.4 10.2 8.5 FINAL Ruthann Dewey * [facility] , [address] [facility] [id number] 08/03 CMP Chlor bonifacio mmol/L 96.0 107.0 104 FINAL Ruthann Dewey * [facility] , [address] [facility] [id number] 08/03 CMP CO2 mmol/L 22.0 30.0 [...] hour stability window. FINAL Ruthann Dewey * [facility] , [address] [facility] [id number] 0 08/03 CMP Creat inine mg/dL 0.66 1.25 0.70 FINAL Ruthann Dewey * [facility] , [address] [facility] [id number] 08/03 CMP GFR estim ate ml/min /1.73m ^2 85.6 GFR is calculate d using the CKD-EPI equation. FINAL Ruthann Dewey * [facility] , [address] [facility] [id number] 08/03 CMP Gluco se mg/dL 74.0 100.0 163 High FINAL Ruthann Dewey * [facility] , [address] [id number] 0 08/03 CMP Potas sium mmol/L 3.5 5.1 3.7 FINAL Ruthann Dewey * [facility] , [address] [id number] 0 08/03 CMP Sodiu m mmol/L 137.0 145.0 137 FINAL Ruthann Dewey * [facility] , [address] [id number] 0 08/03 CMP Bilir ubin, total mg/dL 0.2 1.3 0.3 FINAL Ruthann Dewey * [facility] , [address] [id number] 0 08/03 CMP Total prote in g/dL 6.3 8.2 7.3 FINAL Ruthann Dewey * [facility] , [address] [id number] 0 08/03 CBC w/ auto diff WBC K/uL 3.0 8.9 0.6 Critica l hematol ogy result obtaine d Criti dick Low FINAL Ruthann Marssen [facility] , [address] [place] [id number] 0 08/03 CBC w/ auto diff HGB g/dL 11.3 15.2 8.0 Low FINAL Ruthann Dewey [place] [facility] [place] [facility] , [address] [place] [id number] 0 08/03 CBC w/ auto diff PLT K/uL 113.0 364.0 646 High FINAL Ruthann Dewey [place] [facility] [place] [facility] , [address] [place] [id number] 0 08/03 CBC w/ auto diff Vania # (ANC) K/uL 1.6 6.6 0.0 Critica l hematol ogy result obtaine d Criti dick Low FINAL Ruthann Dewey [place] [facility] [place] [facility] , [address] [place] [id number] 0 08/03 CBC w/ auto diff Vania % % 43.0 74.0 6.3 Low FINAL Ruthann Dewey [place] [facility] [place] [facility] , [address] [place] [id number] 0 08/03 CBC w/ auto diff IG % % 0.0 0.5 1.6 High FINAL Ruthann Dewey [place] [facility] [place] [facility] , [address] [place] [id number] 0 08/03 CBC w/ auto diff IG # K/uL 0.0 0.03 0.01 FINAL Ruthann Dewey [place] [facility] [place] [facility] , [address] [place] [id number] 0 08/03 CBC w/ auto diff LY % % 14.0 41.0 88.9 High FINAL Ruthann Dewey [place] [facility] [place] [facility] , [address] [place] [id number] 0 08/03 CBC w/ auto diff MO % % 6.0 15.0 3.2 Low FINAL Ruthann Dewey [place] [facility] [place] [facility] , [address] [place] [id number] 0 08/03 CBC w/ auto diff EO % % 0.0 7.0 0.0 FINAL Ruthann Dewey [place] [facility] [place] [facility] , [address] [place] [id number] 0 08/03 CBC w/ auto diff BA % % 0.0 2.0 0.0 FINAL Ruthann Dewey [place] [facility] [place] [facility] , [address] [place] [id number] 0 08/03 CBC w/ auto diff LY # K/uL 0.4 3.6 0.6 FINAL Ruthann Dewey [place] [facility] [place] [facility] , [address] [place] [id number] 0 08/03 CBC w/ auto diff MO # K/uL 0.2 1.3 0.0 Low FINAL Ruthann Dewey [place] [facility] [place] [facility] , [address] [place] [id number] 0 08/03 CBC w/ auto diff EO # K/uL 0.0 0.6 0.0 FINAL Ruthann Dewey [place] [facility] [place] [facility] , [address] [place] [id number] 0 08/03 CBC w/ auto diff BA # K/uL 0.0 0.2 0.0 FINAL Ruthann Dewey [place] [facility] [place] [facility] , [address] [place] [id number] 0 08/03 CBC w/ auto diff NRBC % #/100W BC 0.0 0.2 0.0 FINAL Ruthann Dewey [place] [facility] [place] [facility] , [address] [place] [id number] 0 08/03 CBC w/ auto diff RBC M/uL 3.9 5.1 2.41 Low FINAL Ruthann Dewey [place] [facility] [place] [facility] , [address] [place] [id number] 0 08/03 CBC w/ auto diff HCT % 35.0 48.0 22.8 Low FINAL Ruthann Dewey [place] [facility] [place] [facility] , [address] [place] [id number] 0 08/03 CBC w/ auto diff MCV fL 80.0 104.0 94.6 FINAL Ruthann Dewey [place] [facility] [place] [facility] , [address] [place] [id number] 0 08/03 CBC w/ auto diff MCH pg 26.0 35.0 33.2 FINAL Ruthann Dewey [place] [facility] [place] [facility] , [address] [place] [id number] 0 08/03 CBC w/ auto diff MCHC g/dL 30.0 35.0 35.1 High FINAL Ruthann Dewey [place] [facility] [place] [facility] , [address] [place] [id number] 0 08/03 CBC w/ auto diff MPV fL 9.5 13.4 8.6 Low FINAL Ruthann Dewey [place] [facility] [place] [facility] , [address] [place] [id number] 0 08/03 CBC w/ auto diff RDW % 11.4 16.1 20.00 High FINAL Ruthann Dewey [place] [facility] [place] [facility] , [address] [place] [id number] 0 08/03 CBC w/ auto diff Auto CBC comme nts Slide review to follow FINAL Ruthann [place]rellal [facility] [place] [facility] , [address] [place] [id number] 0 08/03 Smear revie w panel CBC Smear revie w comme nts Increas ed anisocy tosisLa rge platele ts present Consist ent with reporte d results Abnor mal FINAL Ruthann [place]al [facility] [place] [facility] , [address] [place] [id number] 0 Medications Date Name Route Dose Frequency [...] 1940 Today's Provider:?Ulysses Bahena MD Date of Service:?08/03/2025 Attending Physician:?Ulysses Bahena (Hematology/Oncology) Referring Provider: Lara [...] cell counts 2.?? Neutropenia without neutropenic fever -??Hemax on Sunday at 100.3 3. ??Medical conditions being managed by PCP 4. ??Depression/anxiety ???Previous benefit from Paxil??(22 years ago) 5. Constipation?? Plan MDS: 1.?Start decitabine??days 1???5 q. 28,??cycle 2 was due today delayed due to ANC of 0 2.?Has been on venetoclax 400 mg, will reduce to 100 mg, now off as of today 3.?? Labs on??Sunday. ??Discussed with patient risk and benefit of receiving G- CSF.?? Benefit of minimizing infection, risk of??increasing leukemia cell 4. ??PRBC for??hemoglobin at 7 and under and platelet transfusion if platelet count less than 10( or going down fast). ??Needs leukoreduced products NEUTROPENIA: 1.?? Continue acyclovir 2. ??Continue Levaquin, discussed with Pharm.D.,??C. difficile risk without antibiotics 3.?Continue posaconazole, stopped her??atorvastatin 4. ??ER if any evidence of neutropenic fever. OTHER: 1.?? Continue medication management??with PCP 2. ??Now on Lexapro for mood 3. Evaluate meds for insomnia, stable for now Advanced Care Planning Not discussed at this visit. Pain Scale on Today's Visit 3 Pain Plan on Today's Visit No pain plan indicated for today's visit Smoking Status Smoking Tobacco : Never smoker; Smokeless Tobacco : Never used smokeless tobacco; Vaping : Never vaped Depression Screening Tool Status Was screened; Outcome positive: No; Screening Date: 08/03/2025; Screening Tool: Patient Health Questionnaire (PHQ9); Total depression score: 6 History of Present Illness 1.?? 85-year-old presented [...] 07/06/2025: Initiated decitabine and venetoclax for MDS -Initially started venetoclax 400 mg and reduce to 100 mg and stopped Interval History She has been tired, fatigued, reviewed today for her hemoglobin??and her WBC count does look like.?? Otherwise doing okay we discussed a fever that happened. Review of Systems Remaining 14 point comprehensive review of systems within normal limits. NCCN Distress Thermometer and Problem List were collected and documented in the patient chart.?? Remarkable symptoms and concerns were discussed with the patient.?? Any additional follow-up is indicated in the plan. Past Medical and Surgical History DM, hypercholesterolemia, recently new blood pressure medication Current Medications Medication List Name Date Venetoclax Oral 07/21/2025 Sennosides Oral 07/14/2025 Levofloxacin Oral 07/14/2025 Prochlorperazine Oral 06/23/2025 Aspirin Oral 06/23/2025 Simvastatin Oral 06/23/2025 Allopurinol Oral 07/15/2025 Losartan Oral 06/23/2025 Metformin Oral 06/23/2025 Acyclovir Oral 07/14/2025 Calcium 600 + D(3) (Calcium-Cholecalcife rol Oral 600 mg-10 mcg (400 unit)) 06/23/2025 Glucosamine Oral 06/23/2025 Multivitamins Oral Tablet 06/23/2025 Lexapro (Escitalopram Oral) 07/06/2025 Lidocaine-Prilocaine Topical Cream 2.5 % -2.5 % 07/08/2025 Posaconazole Oral Delayed Release 2024 Allergies Latex (substance) and amoxicillin Family History Father: cancer Social History , 2 daughters and 1 son. 8 grandchildren. 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 Restricted in physically strenuous activity, but ambulatory and able to carry out work of a light or sedentary nature (e.g., light housework, office work). (Date: 07/06/2025) Karnofsky: Not recorded Physical Exam {Few crackles noted in the breathing, these disappear when she takes a deep breath no bleeding or bruise Genetics/Molecular/Biomarkers * MDS-U - unclassifiable myelodysplastic syndrome ( SCT Eligible: No; IPSS-R Score: High risk (>4.5 to 6 points); IDH1 status: Wild type; ) Additional Labs, Imaging, and Other Studies Lab Results CBC Lab Results 07/28/2025 07/23/2025 07/20/2025 07/14/2025 07/06/2007/02/2025 CBC WBC x 10^3/uL 1.1 (L) 1.3 (L) 1.0 (L) 1.1 (L) 2.8 (L) RBC x 10^6/uL 2.93 (L) 2.73 (L) 3.06 (L) 2.80 (L) 3.06 (L) NRBC % /100 wbc 0.0 0.0 0.0 0.0 2.8 (H) HGB g/dL 8.0 (L) 7.3 Critical hematology result obtained (LL) 8.1 (L) 7.0 Critical hematology result obtained (LL) 7.8 Critical hematology result obtained (LL) HCT % 24.2 (L) 21.7 (L) 24.3 (L) 21.5 (L) 23.4 (L) MCV fL 82.6 79.5 (L) 79.4 (L) 76.8 (L) 76.5 (L) MCH pg 27.3 26.7 26.5 25.0 (L) 25.5 (L) MCHC g/dL 33.1 33.6 33.3 32.6 33.3 RDW % 27.00 (H) ---- ---- ---- ---- PLT x 10^3/uL 53 (L) 16 Critical hematology result obtained (LL) 29 Critical hematology result obtained (LL) 120 168 MPV fL ---- ---- ---- ---- ---- Platelet, immature, fraction % 5.0 8.7 7.3 9.7 11.4 (H) Vania % 0.9 (L) 3.0 (L) 6.0 (L) 34.9 (L) 22.9 (L) LY % 97.2 (H) 95.5 (H) 92.0 (H) 54.1 (H) 60.9 (H) MO % 1.9 (L) 1.5 (L) 1.0 (L) 4.6 (L) 12.3 EO % 0.0 0.0 1.0 5.5 2.8 IG % 0.0 0.0 0.0 0.0 0.0 Vania # (ANC) x 10^3/uL 0.0 Critical hematology result obtained (LL) 0.0 Critical hematology result obtained (LL) 0.1 Critical hematology result obtained (LL) 0.4 Critical hematology result obtained (LL) 0.7 (L) BA % 0.0 0.0 0.0 0.9 1.1 MO # x 10^3/uL 0.0 (L) 0.0 (L) 0.0 (L) 0.1 (L) 0.4 EO # x 10^3/uL 0.0 0.0 0.0 0.1 0.1 BA # x 10^3/uL 0.0 0.0 0.0 0.0 0.0 IG # x 10^3/uL 0.00 0.00 0.00 0.00 0.00 LY # x 10^3/uL 1.0 1.3 0.9 0.6 1.7 CBC Smear review comments Large platelets present Increased anisocytosis (A) Large platelets present Consistent with reported results (A) Abnormal Lymphs present Multiple RBC populations Large platelets present (A) Consistent with reported results Abnormal Lymphs present Multiple RBC populations, increased anisoytosis, poikocytosis , and giant plt present Consistent with reported results Large and-or giant platelets present Increased anisocytosis , poikocytosis , and RBC dimorphic population Auto CBC comments Slide review to follow Slide review to follow Slide review to follow Slide review to follow Slide review to follow Chemistries Lab Results 07/28/2025 07/23/2025 07/20/2025 07/14/2025 07/06/2007/02/2025 Chemistries Glucose mg/dL 173 (H) BUN mg/dL 16.0 Creatinine mg/dL 0.80 Sodium mmol/L 138 Potassium mmol/L 3.7 Chloride mmol/L 111 (H) CO2 mmol/L 21 (L) Calcium mg/dL 8.2 (L) Albumin g/dL 3.8 Total protein g/dL 6.6 Bilirubin, total mg/dL 0.2 Alkaline phosphatase U/L 60 AST/SGOT U/L 26 ALT/SGPT U/L 24 GFR estimate mL/min/1.73m2 72.9 Magnesium, mg/dL 1.9 Phosphorus mg/dL 3.6 ? Lab Results 07/28/2025 07/23/2025 07/20/2025 07/14/2025 07/06/2007/02/2025 Anemia Labs Surveys/Consents/Other Discussions Ulysses Bahena MD CC: FAX Lara Colbert MD (Referring) Electronically signed by Ulysses Bahena MD 08/03/2025 13:23 CDT
--- OUTSIDE RECORDS SUMMARY | 2025-08-07 10:10 | XMS_ITS | Encounter Summary ---
Author Organization [facility] Address [address] [place] [address] Care Team Providers Care Greeting Card Writer Name Role Phone Lara Colbert MD Primary Care Provider [phone] Lara Colbert MD Unavailable [phone] Henry Pratt MD Unavailable Henry Pratt MD Unavailable Reason for Visit * Reason Onset Date Comments Referral 05/19/2025 Hematology Refer ral - [facility] Encounter Details Date Type Department Care Team (Late st Contact Info) Description 05/19/2025 Telephone [facility] [address] [place] [address] [address] [place] [address] Lara Colbert MD [address] [place] [address] [address] [place] [address] Referral (Hematology Referral - [facility] ) Social History Tobacco Use Types Packs/Day [...] on file Legal Sex Female 4:39 AM [employer] Gender Identity Not on file Sexual Orientation Not on file Occupation Industry Job Start Date Job End Date retired Not on file Not on file Not on file Not on file Not on file Not on file Not on file documented as of this encounter Miscellaneous Notes * Telephone Encounter - Nai Dennis - 05/21/2025 9:29 AM CDT I talked with patient this morning. She is scheduled 05.25.2025 at 3:30pm with [facility] [address] [place] [address] [address] [place] [address] -- appt line [phone] -- fax Patient was unsure of the provider she is see. Thinks it is Dr. Bui Patient is scheduled with [facility] 06.02.2025 at 10:30am with Palmira Kapoor PA-C [facility] [address] [facility] [address] [facility] [address] - appt line [phone] - fax FYI * Telephone Encounter - Nai Dennis - 05/19/2025 11:37 AM CDT I talked with Daniela at [facility] ( [phone] ) regarding the referral. Daniela stated that this referral will be reviewed to determine urgency. [facility] will call patient after the referral has been reviewed to get patient scheduled. Patient and her daughter, Sarah was given the above information. I will follow up with patient 05.21.2025 documented in this encounter Plan of Treatment Not on file documented as of this encounter Visit Diagnoses Not on filedocumented in this encounter Care Teams Greeting Card Writer Relationship Specialty Start Date End Date Lara Colbert MD [address] [facility] [address] [place] [address] PCP - General Family Medicine 02/07/22 Lara Colbert MD [address] [facility] [address] [place] [address] Assigned PCP 04/02/22 Henry Pratt MD [address] [facility] [address] [place], [place] [address] Cardiovascular Disease 02/10/25 Henry Pratt MD [address] [place] [address] Assigned Heart and Vascular Provider 04/17/25 documented as of this encounter
--- OUTSIDE RECORDS SUMMARY | 2025-08-07 10:10 | XMS_ITS | Clinical Summary ---
Author Organization [facility] Address [address] [place] [address] Care Team Providers Care Research Worker Encyclopedia Name Role Phone Lara Colbert MD Primary Care Provider + [phone] Lara Colbert MD Unavailable [phone] Henry Pratt MD Unavailable Henry Pratt MD Unavailable Allergies Active Allergy Reactions Criticality Noted Date Comments Adhesive Tape Rash Low 05/10/2020 Noted on arms only Amoxicillin Nausea and Vomiting,Diarrhea 03/23/2021 Medications aspirin 81 MG EC tabletIndications:Other abnormal glucose Take 1 tablet (81 mg) by mouth daily 90 tablet 3 06/23/20 14 Active glucosamine-chondroitin 500-400 MG CAPS per capsule Take 1 capsule by mouth daily Active Multiple Vitamin (MULTI VITAMIN DAILY PO) Ac tive calcium-vitamin D 500-125 MG-UNIT TABS Take 1 tablet by mouth daily Active Blood Glucose Monitoring Suppl (CONTOUR BLOOD GLUCOSE SYSTEM) w/Device KITIndications:Type 2 diabetes mellitus without complication, without long-term current use of insulin (H) 1 strip by In Vitro route daily 1 kit 06/04/20 19 Active blood glucose (NO BRAND SPECIFIED) lancets standardIndications:Typ e 2 diabetes mellitus without complication, without long-term current use of insulin (H) Use to test blood sugar 1 times daily or as directed. 100 each 3 10/02/20 22 Active Sennosides-Docusate Sodium (SENNA PLUS PO) Take by mouth. Active losartan (COZAAR) 25 MG tabletIndications:Dyspn ea on exertion,Benign essential hypertension Take 1 tablet (25 mg) by mouth daily. 90 tablet 3 04/01/20 25 Active simvastatin (ZOCOR) 20 MG tabletIndications:Pure hypercholesterolemia TAKE 1/2 (ONE-HALF) TABLET BY MOUTH AT BEDTIME 45 tablet 1 04/03/20 25 Active BIOTIN PO Take by mouth. Active blood glucose (CONTOUR NEXT TEST) test stripIndications:Type 2 diabetes mellitus without complication, without long-term current use of insulin (H) 1 strip by In Vitro route daily. Use to test blood sugar once times daily or as directed. 100 strip 3 04/03/20 25 Active metFORMIN (GLUCOPHAGE) 500 MG tabletIndications:Type 2 diabetes mellitus without complication, without long-term current use of insulin (H) Take 1 tablet (500 mg) by mouth 2 times daily (with meals). 180 tablet 1 04/03/20 25 Active fluticasone (FLOVENT HFA) 220 MCG/ACT inhalerIndications:Shor tness of breath Inhale 1 puff into the lungs 2 times daily. 12 g 1 04/24/20 25 Active albuterol (PROAIR HFA/PROVENTIL HFA/VENTOLIN HFA) 108 (90 Base) MCG/ACT inhalerIndications:Shor tness of breath Inhale 2 puffs into the lungs every 6 hours as needed for shortness of breath, wheezing or cough. 18 g 1 04/24/20 25 Active acyclovir (ZOVIRAX) 400 MG tablet Take 400 mg by mouth 2 times daily. Active Active Problems Problem Noted Date Diagnosed Date History of blood transfusion 12/07/2022 History of total knee replacement, unspecified l aterality 09/20/2020 Arthritis of left knee 05/11/2020 Type 2 diabetes mellitus wit hout complication, without long-term current use of insulin 05/30/2017 ACP (advance care planning) 11/15/2011 Overview (08/24/2015): Advance Care Planning 08/24/2015: Receipt of ACP document: Received: Health Care Directive which was witnessed or notarized on 02/17/2014. Document previously scanned on 07/02/2014. Validation form completed and sent to be scanned. Code Status reflects choices in most recent ACP document. Confirmed/documented designated decision maker(s). Added by Debora Carvalho Advance Care Planning: Receipt of ACP document: Received: Health Care Directive which was witnessed or notarized on 02/17/2014. Document not previously scanned. Validation form completed and sent with document to be scanned. Code Status reflects choices in most recent ACP document. Confirmed/documented designated decision maker(s). See permanent comments section of demographics in clinical tab. View document(s) and details by clicking on code status. Added by Patircia Wharton on 06/30/2014. Pure hypercholesterolemia 10/25/2005 Resolved Problems Problem Noted Date Diagnosed Date Resolved Date Other hyperlipidemia 05/11/2020 023 Health Shelter 05/23/2013 05/12/2024 Overview (08/12/2013): State Tier Level: Tier 1 Status: n/a Grinder Brake Lining: See Letters for [facility] Care Plan Disorder of bursae and tendo ns in shoulder region 05/17/2011 05/14/2012 Overview (08/27/2015): Problem list name updated by automated process. Provider to review Encounters Date Type Department Care Team Description 07/02/2025 7:43 AM CDT - 07/02/2025 9:49 AM CDT Hospital Encounter [facility] [address] [place] [address] Mando Mosher MD Unclassifiable myelodysplastic syndrome (H) Discharge Disposition: Home or Self Care 07/01/2025 Telephone [facility] [address] [place] [address] Juana Calvo RN 05/19/2025 10:30 AM CDT Office Visit [facility] [address] [place] [address] Lara Colbert MD Shortness of breath (Primary Dx); Other constipation; Gallstones; Anemia due to other cause, not classified 05/19/2025 Results Follow-Up [facility] [address] [place] [phone] Lara Colbert MD 05/19/2025 Telephone [facility] [address] [place] [address] [address] [place] [address] Lara Colbert MD Referral (Hematology Referral - [facility] ) 05/19/2025 Travel from Last 3 Months Immunizations Immunization Administration Dates Next Due COVID-19 MONOVALENT 12+ (Pfizer) 08/31/2021,01/24,01/14/2021 Influenza (High Dose) Trival ent,PF (Fluzone) 10/01/2024,09/09/2019,08/23/2018,2015,09/07/2015 Influenza (IIV3) PF 09/09/2011, 0,08/31/2009,2007,09/03/2007 Influenza Vaccine 65+ (Fluzone HD) 09/25,09/19/2022,09/08/2021,2019 Influenza Vaccine >6 months,quad, PF 08/01/2017, 10/12/2014 Pneumo Conj 13-V (2010&after) 05/25/2015 Pneumococcal 23 valent 03/11/2008 RSV Vaccine (Arexvy) 10/08/2023 TD,PF 7+ (Tenivac) 10/25/2005 TDAP Vaccine (Boostrix) 05/25/2015 Zoster recombinant adjuvante d (Shingrix) 08/23/2018,03/22/2018 Zoster vaccine, live 06/10/2009 Family History Medical History Relation Comments Diabetes Brother Heart Disease Brother Cancer Father lung Diabetes Father Colon Cancer Maternal Grandmother Diabetes Maternal Grandmother Lipids Mother Glaucoma Paternal Grandfather Diabetes Paternal Grandmother Diabetes Sister 1 Lipids Sister 2 Relation Status Comments Brother Alive Daughter 1 Alive Daughter 2 Alive Father Alive Maternal Grandmother Mother Alive Paternal Grandfather Paternal Grandmother Sister 1 Alive Sister 2 Alive Son Alive Social History Tobacco Use Types Packs/Day Years Used Date Smoking Tobacco: Never Passive Smoke Exposure: Never Smokeless Tobacco: Never Tobacco Cessation:Counseling Given: Not Answered Alcohol Use Standard Drinks/Week Comments Yes 0 [...] on file 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 Gender Identity Not on file Sexual Orientation Not on file Occupation Industry Job Start Date Job End Date retired Not on file Not on file Not on file Not on file Not on file Not on file Not on file Last Filed Vital Signs Vital Sign Reading Time Taken Comments Blood Pressure 144/86 07/02/2025 10:02 AM CDT Pulse 80 07/02/2025 10:02 AM CDT Temperature 36.6 C (97.8 F) 07/02/2025 9:44 AM CDT Respiratory Rate 18 07/02/2025 10:02 AM CDT Oxygen Saturation 100% 07/02/2025 10:02 AM CDT Inhaled Oxygen Concentration - - Weight 75.5 kg (166 lb 6.4 oz) 05/19/2025 10:39 AM CDT Height 158.8 cm (5' 2.5) 04/01/2025 11:14 AM CD T Body Mass Index 29.95 04/01/2025 11:14 AM CDT Plan of Treatment Health Maintenance Due Date Last Done Comments ANNUAL REVIEW OF HM ORDERS 1940 CT COLONOGRAPHY 1940 FIT 1940 FLEX SIG 1940 sDNA (Cologuard) 1940 DTAP/TDAP/TD VACCINE (2 - Td or Tdap) 05/25/2025 05/25/2015, 10/25/2005 A1C 07/04/2025 04/03/2025, 09/26, 04/02/2024, Additional history exists COVID-19 VACCINE ( season) 2025 09/02/2024, 09/13/2023, 09/27/2022, Additional history exists INFLUENZA VACCINE (#1) 2025 , 09/25/2023, 09/19/2022, Additional history exists EYE EXAM 09/19/2025 09/19/2024, 07/28, 08/14/2022, Additional history exists DIABETIC FOOT EXAM 10/07/2025 10/07/2024, 0 04/02/2024, 10/03/2023, Additional history exists FALL RISK ASSESSMENT 10/07/2025 10/07/2024, 10/03/2023, 10/02/2022, Additional history exists LIPID 10/07/2025 10/07/2024, 06/2023, 10/02/2022, Additional history exists MEDICARE ANNUAL WELLNESS VISIT 10/07/2025 10/07/2024, 10/07/2024, 10/03/2023, Additional history exists MICROALBUMIN 10/07/2025 10/07/2024, 110 06/2023, 10/02/2022, Additional history exists DEXA 10/24/2025 10/24/2023, 04/27, 11/17/2009, Additional history exists BMP 05/19/2026 05/19/2025, 03/27, 02/09/2025, Additional history exists ADVANCE CARE PLANNING 10/07/2029 10/07/2024 , 05/22/2014, 11/15/2011 COLONOSCOPY 12/13/2032 12/13/2022, 11/26, 11/01/2017, Additional history exists PNEUMOCOCCAL VACCINE 50+ YEARS Completed 05/25/2015, 03/11/2008 ZOSTER VACCINE Completed 08/23/2018, 02/25, 06/10/2009 TSH W/FREE T4 REFLEX Discontinued 12/08/2019, 03/20/2018, 10/26/2005 RSV VACCINE Completed 10/08/2023 PHQ-2 (once per calendar year) Completed 02/09/2025, 10/07/2024, 04/02/2024, Additional history exists LUNG CANCER SCREENING Discontinued 04/09/2025 COLORECTAL CANCER SCREENING Discontinued HPV VACCINE (No Doses Required) Completed MENINGITIS VACCINE Aged Out No longer eligible based on patient's age to complete this topic Medical Devices Implanted Type Area Specialist Icu Device Identifier Shelf Expiration Date Model / Serial / Lot Eye Imp Iol [place] Pcl Tecnis [id number] 23.5 Implanted:Qt y: 1 on 08/07/2017 by Lex Alfaro MD at [facility] Lens/Eye Implant Left: Eye ADVANCED MEDICAL OPT 04/09/2021 ZCB00 23.5 / [id number] / Eye Imp Iol [place] Pcl Tecnis Zcb00 24.0 Implanted:Qt y: 1 on 08/21/2017 by Lex Alfaro MD at [facility] Lens/Eye Implant Right: Eye [employer]ED [employer] OPT 05/03/2021 ZCB00 24.0 / [id number] / Smart Port- Implanted:Qt y: 1 on 07/02/2025 by Mando Mosher MD Port Right: Chest Wall [employer] [id number] 03/25/2028 / / [id number] Procedures Procedure Name Priority Date/Time Associated Diagnosis Comments IR CHEST PORT PLACEMENT > 5 YRS OF AGE Priority: 1-2 Weeks 07/02/2025 9:40 AM CDT Unclassifiable myelodysplastic syndrome (H) RBC AND PLATELET MORPHOLOGY STAT 07/02/2025 8:17 AM CDT CBC WITH PLATELETS (LIMITED OCCURRENCES) STAT 07/02/2025 8:17 AM CDT MA SCREENING BILATERAL W/ ROGELIO Routine 06/17/2025 HEMOGRAM PLATELET DIFF (BFP) Routine 05/19/2025 11:15 AM CDT Shortness of breath CO COLLECTION VENOUS BLOOD VENIPUNCTURE Routine 05/19/2025 10:59 AM CDT Shortness of breath BASIC METABOLIC PANEL (BFP) Routine 05/19/[address] CHEST W CONTRAST Routine 04/09/2025 Shortness of breath HEMOGLOBIN A1C (BFP) Routine 04/03/2025 Type 2 diabetes mellitus without complication, without long-term current use of insulin (H) ALBUMIN RANDOM URINE QUANTITATIVE (BFP) Routine 10/07/2024 Type 2 diabetes mellitus without complication, without long-term current use of insulin (H) LIPID PANEL (BFP) Routine 10/07/2024 Pure hypercholesterolemia DIABETIC (DILATED) EYE EXAM Routine 09/19/2024 DX BONE DENSITY Routine 10/24/2023 Screening for osteoporosis COLONOSCOPY Routine 12/13/2022 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 The pocket was flushed with antibiotic solution. [...] of sedation was achieved with 1.5 mg [id number] mcg fentanyl. Vital signs and sedation monitored [...] The port is ready for immediate use. us Ulysses Bahena MD [facility] IR ORDERABLES Final Re sult * (ABNORMAL) [...] AM CDT 07/02/2025 8:21 AM CDT [facility] GENERAL SUPERVISOR MANAGER PERIOPERATIVE LAB - BLOOD OR DERABLES Final Result [facility] [address] Lab (1st floor, no room number) [place] [address], [facility] * (ABNORMAL) CBC with Platelets (Limited [...] AM CDT 07/02/2025 8:21 AM CDT [facility] GENERAL SUPERVISOR MANAGER PERIOPERATIVE LAB - BLOOD OR DERABLES Final Result [facility] [address] [facility] Lab (1st floor, no room number) [place] [address], [facility] * MA Screening Bilateral w/ Rogelio (06/17/2025) MAMMOGRAM Anatomical Region Laterality Modality Breast Bilateral Other Narrative 06/17/2025 [address], [address] [place] [address] [place] : 1940 Req Phys: Lara Colbert MD Patient name: NAUN DINERO Clinic: [facility] Dept No: [id number] MAMMOGRAM SCREENING ROGELIO BILATERAL Exam Date: 06/17/2025 Copy To: Ulysses Bahena MD EXAM: MAMMOGRAM SCREENING ROGELIO BILATERAL LOCATION: [facility] [place] DATE: 06/17/2025 INDICATION: Asymptomatic. Screening Mammogram. COMPARISON: 06/16/24, 06/13/23 and 06/08/2020. BREAST DENSITY: There are scattered areas of fibroglandular density. FINDINGS: Tomosynthesis craniocaudal and mediolateral oblique views were obtained. No concerning mammographic findings. IMPRESSION: ACR BI-RADS 1: Negative Recommended follow-up: Annual Mammography beginning at age 40 or as discussed with your provider. When performed, computer-aided detection was used in the interpretation of this study. A lay language report of this examination will be mailed to the patient. LIFETIME BREAST CANCER RISK ASSESSMENT SCORE: Lifetime risk of developing breast cancer is 1.8% calculated using the Solange Model and information provided by the patient at the time of screening. The average lifetime risk for developing breast cancer is 12.9% for women born in the [place]. For patients with a lifetime breast cancer risk assessment score of less than 20%, annual screening mammography is recommended. For patients with a lifetime risk of greater than 20%, annual screening mammography supplemented with annual Breast MRI is recommended. Patients in this category are encouraged to discuss this recommendation with their healthcare provider to determine if Breast MRI is appropriate and if so, to obtain a referral and confirm coverage with their health insurance. Recommendations are based on the [employer] Appropriateness Criteria. Patients with a BI-RADS category of 0 should follow the recommendations for further evaluation before considering supplemental screening. Dictated By: MOLLY TRIVEDI M.D. Password protected electronic signature by: NATHALIA Trans: SI Date Of Trans: 06/17/2025 12:06:00PM Date report approved and signed by interpreting physician: 06/17/2025 12:04:00PM Page 1 of 1 us Patient Reported IMG MAMMOGRAPHY ORDERABLES Annabelle l Result * (ABNORMAL) HEMOGRAM PLATELET DIFF (BFP) (05/19/2025 11:15 AM CDT) WBC 3.8(A) 4.0 - 11 10*9/L [facility] RBC Count 3.34(A) 3.8 - 5.2 10*12/L [facility] Hemoglobin 8.0(A) 11.7 - 15.7 g/dL [facility] Hematocrit 27.1(A) 35.0 - 47.0 % [facility] MCV 81.2 78 - 100 fL [facility] MCH 24.0(A) 26 - 33 pg [facility] MCHC 29.5(A) 31 - 36 g/dL [facility] Platelet Count 268 150 - 375 10^9/L [facility] % Granulocytes 31.6 % [facility] % Lymphocytes 55.5 % [facility] % Monocytes 12.9 % [facility] Blood 05/19/2025 11:1 5 AM CDT Narrative [facility] - 05/19/2025 11:16 AM CDT Ran twice us Lara Colbert MD LAB - NON-BEAKER BLOOD LABS Final Result [facility] [address] [place] [id number] * (ABNORMAL) Basic Metabolic Panel ([facility]) (05/19/2025) Carbon Dioxide 20.9 20 - 32 mmol/L [facility] Creatinine 1.04 0.60 - 1.30 mg/dL [facility] Glucose 138(A) 60 - 99 mg/dL [facility] Sodium 137.6 135 - 146 mmol/L [facility] Potassium 5.3 3.5 - 5.3 mmol/L [facility] Chloride 105.1 98 - 110 mmol/L [facility] Urea Nitrogen 22 7 - 25 mg/dL [facility] Calcium 9.6 8.6 - 10.3 mg/dL [facility] BUN/Creatinine Ratio 21 6 - 32 [facility] Blood 05/19/2025 us Lara Colbert MD LAB - NON-BEAKER BLOOD LABS Final Result [facility] [address] [place] [address] * CT Chest w Contrast (04/09/2025) Anatomical Region Laterality Modality Chest, SUBRAD CT BODY, UMP CT CHEST, RAD CT Computed Tomography Narrative 04/09/2025 [address], [address] [place] [address] [place] : 1940 Req Phys: Lara Colbert MD Patient name: NAUN DINERO Clinic: [facility] Dept No: [id number] *CT CHEST w CONTRAST Exam Date: 04/09/2025 EXAM: CT CHEST w CONTRAST LOCATION: [facility] [place] DATE: 04/09/2025 INDICATION: Shortness of breath. COMPARISON: Chest x-ray 02/09/2025. TECHNIQUE: CT chest with IV contrast. Multiplanar reformats were obtained. Dose reduction techniques were used. CONTRAST: 80 mL Omnipaque 350. FINDINGS: LUNGS AND PLEURA: Clear central airways. No effusion or pneumothorax. No acute airspace consolidation. No worrisome airspace disease. Incidental calcified granuloma of the right lower lobe, series 6 image 164. Minor bibasilar atelectasis. MEDIASTINUM/AXILLAE: No acute mediastinal abnormality. A few mildly enlarged lymph nodes are seen. Subcarinal example has short axis of 9 mm, series 8, image 70. Right hilar lymph node measures 11 mm, image 60. Axillary lymph nodes are small. CORONARY ARTERY CALCIFICATION: None. UPPER ABDOMEN: Cholelithiasis. Suggestion of potential fatty liver. No acute upper abdominal abnormality. MUSCULOSKELETAL: Minimal spine degenerative changes. No focal bony lesion identified. IMPRESSION: 1. No specific finding to account for the patient's symptoms. 2. A few nonspecific mildly prominent thoracic lymph nodes. If relevant, these could be followed with repeat CT chest in 6 to 12 months. 3. Upper abdomen shows cholelithiasis and potential fatty liver. Dictated By: SHRUTI GATICA M.D. Password protected electronic signature by: MARCI Trans: Date Of Trans: 04/13/2025 8:58:00AM Date report approved and signed by interpreting physician: 04/13/2025 9:02:00AM Page 1 of 1 Lara Colbert MD IMG CT ORDERABLES Final Resu lt * (ABNORMAL) HEMOGLOBIN A1C (BFP) (04/03/2025) Hemoglobin A1C 7.6(A) 4 - 5.6 % [facility] Blood 04/03/2025 us Lara Colbert MD LAB - NON-BEAKER BLOOD LABS Final Result Performing Organization Address City/[facility]/ZIP Co de Phone Number [facility] [address] * ALBUMIN RANDOM URINE QUANTITATIVE ([facility]) (10/07/2024) Albumin mg/L 30 <30 [facility] Creatinine Urine mg/dL 200 <330 mg/dL [facility] Albumin Urine mg/g Cr <30 <30 MG/G Creatinine [facility] Urine 10/07/2024 us Lara Colbert MD LAB - NON-BEAKER NON-BLOOD F inal Result Performing Organization Address City/[facility]/ZIP Co de Phone Number [facility] [address] [facility] [address] [place] [address] * Lipid Panel ([facility]) (10/07/2024) Cholesterol 187 0 - 199 mg/dL [facility] Triglycerides 108 0 - 149 mg/dL [facility] HDL Cholesterol 76 40 - 150 mg/dL [facility] LDL-C 89 0 - 129 mg/dL [facility] Cholesterol/HDL Ratio 2 0 - 5 [facility] Blood 10/07/2024 Lara Colbert MD LAB - NON-BEAKER BLOOD LABS Final Result [facility] [address] [facility] [address] [place] [address] * DIABETIC (DILATED) EYE EXAM (09/19/2024) us Patient Reported PROCEDURES Final Result * Dexa hip/pelvis/spine* (10/24/2023) Anatomical Region Laterality Modality Dexa Other Narrative 10/24/2023 [address], [address] [place] [address] [place] : 1940 Req Phys: Lara Colbert MD Patient name: NAUN DINERO Clinic: [facility] Dept No: [id number] BONE DENSITY Exam Date: 10/24/2023 EXAM: BONE DENSITY LOCATION: [facility] [place] DATE: 10/24/2023 INDICATION: BMD screening, follow-up. DEMOGRAPHICS: Age- 83 years. Gender- Female. Menopausal status- Postmenopausal. COMPARISON: 05/24/2018 TECHNIQUE: Dual-energy x-ray absorptiometry (DXA) performed with routine technique. FINDINGS: DXA RESULTS -Lumbar Spine: L1-L4: BMD: 1.111 g/cm2. T-score: 0.6. Z-score: 3.3. Degenerative change may artifactually increase BMD. -RIGHT Hip Total: BMD: 0.933 g/cm2. T-score: -0.1. Z-score: 2.1. -RIGHT Hip Femoral neck: BMD: 0.856 g/cm2. T-score: 0.1. Z-score: 2.4. -LEFT Hip Total: BMD: 0.905 g/cm2. T-score: -0.3. Z-score: 1.8. -LEFT Hip Femoral neck: BMD: 0.803 g/cm2. T-score: -0.4. Z-score: 2.0. WHO T-SCORE CRITERIA -Normal: T score at or above -1 SD -Osteopenia: T score between -1 and -2.5 SD -Osteoporosis: T score at or below -2.5 SD The World Health Organization (WHO) criteria is applicable to perimenopausal females, postmenopausal females, and men aged 50 years or older. INTERVAL CHANGE -There has been a 3.2% increase in lumbar spine BMD. -There has been a 3.8% increase in the right hip BMD. -There has been a 2.0% increase in the left hip BMD. FRACTURE RISK -The FRAX risk calculator is not applicable due to normal bone mineral density. IMPRESSION: NORMAL. Bone mineral density measurements are within normal limits using T score. Dictated By: Angle Aggarwal Password protected electronic signature by: Trans: SI Date Of Trans: 10/24/2023 3:14:00PM Date report approved and signed by interpreting physician: 10/24/2023 3:14:00PM Page 1 of 1 us Lara Colbert MD IMG DEXA ORDERABLES Final Re sult * COLONOSCOPY (12/13/2022 8:12 AM PLATING MACHINE OPERATOR) COLONOSCOPY [facility] Patient Name: Naun Dinero Procedure Date: 12/13/2022 8:12 AM Date of : 1940 Admit Type: Outpatient Age: 82 Gender: Female Attending MD: ANSELMO BARCLAY MD Total Sedation Time: Minutes of continuous bedside 1:1: 21 minutes Instrument Name: 256 - Pediatric Colonoscope Procedure: Colonoscopy Indications: High risk colon cancer surveillance: Personal history of colonic polyps Providers: ANSELMO BARCLAY MD (Doctor) Referring MD: Daniel Arias MD (Referring MD) Medicines: Midazolam 2 mg IV, Fentanyl 100 micrograms IV Complications: No immediate complications. Procedure: Pre-Anesthesia Assessment: - Prior to the procedure, a History and Physical was performed, and patient medications and allergies were reviewed. The patient is competent. The risks and benefits of the procedure and the sedation options and risks were discussed with the patient. All questions were answered and informed consent was obtained. Patient identification and proposed procedure were verified by the physician in the pre-procedure area. Mental Status Examination: alert and oriented. Airway Examination: normal oropharyngeal airway and neck mobility. Respiratory Examination: clear to auscultation. CV Examination: normal. Prophylactic Antibiotics: The patient does not require prophylactic antibiotics. Prior Anticoagulants: The patient has taken no anticoagulant or antiplatelet agents. ASA Grade Assessment: II - A patient with mild systemic disease. After reviewing the risks and benefits, the patient was deemed in satisfactory condition to undergo the procedure. The anesthesia plan was to use moderate sedation / analgesia (conscious sedation). Immediately prior to administration of medications, the patient was re-assessed for adequacy to receive sedatives. The heart rate, respiratory rate, oxygen saturations, blood pressure, adequacy of pulmonary ventilation, and response to care were monitored throughout the procedure. The physical status of the patient was re-assessed after the procedure. After obtaining informed consent, the colonoscope was passed under direct vision. Throughout the procedure, the patient's blood pressure, pulse, and oxygen saturations were monitored continuously. The Olympus Pediatric Colonoscope Model # [id number], [place] # [id number], SN # [id number] was introduced through the anus and advanced to the cecum, identified by appendiceal orifice and ileocecal valve. The colonoscopy was performed without difficulty. The patient tolerated the procedure well. The quality of the bowel preparation was good. The ileocecal valve, appendiceal orifice, and rectum were photographed. Findings: Multiple medium-mouthed diverticula were found in the sigmoid colon. The exam was otherwise without abnormality. Impression: - Diverticulosis in the sigmoid colon. - The examination was otherwise normal. - No specimens collected. Recommendation: - No need for further colonoscopy exam Procedure Code(s): --- Professional --- 85298, Colonoscopy, flexible; diagnostic, including collection of specimen(s) by brushing or washing, when performed (separate procedure) CPT copyright 2020 [employer]. All rights reserved. The codes documented in this report are preliminary and upon highway research engineer review may be revised to meet current compliance requirements. Anselmo Barclay M.D. ___ ANSELMO BARCLAY MD 12/13/2022 9:35:04 AM Number of Addenda: 0 Note Initiated On: 12/13/2022 8:12 AM Procedure Date: 12/13/2022 8:12:59 AM Scope Withdrawal Time: 0 hours 13 minutes 17 seconds Total Procedure Duration: 0 hours 17 minutes 53 seconds Estimated Blood Loss: Scope In: 8:28:38 AM Scope Out: 8:46:31 AM RADIOLOGY RESULTS 12/13/2022 8:12 AM PLATING MACHINE OPERATOR Daniel Arias PROCEDURES Final Result RADIOLOGY RESULTS * TSH with free T4 reflex ([facility]) (12/08/2019 11:25 AM PLATING MACHINE OPERATOR) TSH 1.85 0.40 - 4.50 mIU/L [facility] Blood specimen (specimen) 12/08/2019 11:25 AM PLATING MACHINE OPERATOR 12/09/2019 4:00 AM PLATING MACHINE OPERATOR Narrative Resulting Agency Comment Performing Organization Information: [facility] [address] [facility] [place] [address] Sammy Lacy M.D. Gloria Linn MD LAB - BLOOD ORDERABLES Final R esult MERARY VARELA [address] [place] [address], [facility] [phone] from Last 3 Months or Most Recently Relevant to Health Maintenance Insurance [facility] MEDICARE ADVANTAGE [facility] MEDICARE ADVANTAGE [address] [place] [id number] BCBS MEDICARE ADVANTAGE Advance Directives For more information, please contact: [phone] Documents on File Type Date Recorded Patient Field Spec Expl anation Power of Population Health Manager 07/31/2014 11:58 AM Power of Population Health Manager Advance Directives and Living Will 07/02/2014 12:47 PM Health Care Directiv e 02/17/2014 * Full Code (Latest Code Status on File) Date Activated Date Inactivated Comments 06/30/2014 9:48 AM 12/13/2022 7:37 AM Care Teams Research Worker Encyclopedia Relationship Specialty Start Date End Date Lara Colbert MD [address] [address] PCP - General Family Medicine 02/07/22 Lara Colbert MD [address] [facility] [address] [place] [address] Assigned PCP 04/02/22 Henry Pratt MD [address] [place] [address] Cardiovascular Disease 02/10/25 Henry Pratt MD [address] [place] [address] Assigned Heart and Vascular Provider 04/17/25
--- OUTSIDE RECORDS SUMMARY | 2025-08-07 10:10 | XMS_ITS | Clinical Summary ---
Author Organization [facility] Address [address] [place] [address] Care Team Providers Care Rental Car Deliverer Name Role Phone Elias Newton MD Primary Care Provider [phone] Source Comments You are receiving this document as you are listed as the primary care provider,follow-up provider, or the patient has been referred to you for consultation.This is in compliance with the Medicare and[facility] EHR Incentive Program,which states Providers who transition their patient to another setting of careor provider of care or refers their patient to another provider of care shouldprovide summary care record for each transition of care or referral. [facility] Allergies No known active allergies Medications FOSAMAX 10MG ORAL TABS 1 TABLET Q AM ON AN EMPTY STOMACH 30 99 5 Active PAXIL 10MG ORAL TABS 0 5 Active LIPITOR 10MG ORAL TABS 0 5 Active POLYTRIM OPHTH SOLN 1 gtt od qid 5cc 0 5 Active calcium carbonate 600 MG tabletIndicatio ns:unknown dose Take 600 mg by mouth two times a day. Indications: unknown dose Active multivitamin (THERAGRAN) tablet Take 1 Tab by mouth daily. Active neomycin-polymy kellie-dexamethaso ne (MAXITROL) 0.1 % eye ointment Apply 1/2 inch ribbon to bilateral eyelid incisions 2-3 times daily for 2 weeks. 3.5 g 2 7 Active Family History Medical History Relation Name Comments Diabetes Father Diabetes Brother Diabetes Maternal Grandmother Glaucoma Paternal Grandfather Diabetes Paternal Grandmother Diabetes Sister fuchs dystrophy Sister corneal ennis splant Relation Name Status Comments Father Brother Maternal Grandmother Paternal Grandfather Paternal Grandmother Sister Social History Tobacco Use Types Packs/Day Years Used Date Smoking Tobacco: Never Assessed Comments No Sex and Gender Information Value Date Recorded Sex Assigned at Not on file Legal Sex Female 4:45 AM CDT Gender Identity Not on file Sexual Orientation Not on file Last Filed Vital Signs Vital Sign Reading Time Taken Comments Blood Pressure 144/80 12/18/2004 2:00 PM HOME AND FAMILY LIVING PROFESSOR Pulse 64 12/18/2004 2:00 PM HOME AND FAMILY LIVING PROFESSOR Temperature 36.6 C (97.8 F) 12/18/2004 2:00 PM HOME AND FAMILY LIVING PROFESSOR Respiratory Rate 10 12/18/2004 2:00 PM HOME AND FAMILY LIVING PROFESSOR Oxygen Saturation - - Inhaled Oxygen Concentration - - Weight 77 kg (169 lb 12.8 oz) 05/30/2017 9:12 AM CDT Height 159.4 cm (5' 2.75) 05/30/2017 9:12 AM CD T Body Mass Index 30.32 05/30/2017 9:12 AM CDT Plan of Treatment Health Maintenance Due Date Last Done Comments Medicare Annual Wellness Visit 1940 DTaP/Tdap/Td Vaccine (1 - Tdap) 1961 Pneumococcal Vaccine 50+ Yrs (1 of 1 - PCV) 1992 Zoster/Shingles Vaccine (1 of 2) 1992 Dexa 2007 RSV Vaccine (1 - 1-dose 75+ series) 2017 COVID-19 Vaccine (1 - 2023-2 5 season) 2025 Influenza Vaccine (#1) 2025 HepA Vaccine Aged Out No longer eligi ble based on patient's age to complete this topic HepB Vaccine Aged Out No longer eligi ble based on patient's age to complete this topic Hib Vaccine Aged Out No longer eligi ble based on patient's age to complete this topic IPV (Polio) Vaccine Aged Out No longe r eligible based on patient's age to complete this topic MCV4 Vaccine Aged Out No longer eligi ble based on patient's age to complete this topic Meningococcal B Vaccine Aged Out No l onger eligible based on patient's age to complete this topic Insurance MEDICARE MANAGED CARE BCBS BC [employer] [place] BLUE Advance Directives * Full Code (Latest Code Status on File) Date Activated Date Inactivated Comments 06/01/2017 9:57 AM 06/01/2017 12:57 PM Care Teams Rental Car Deliverer Relationship Specialty Start Date End Date Elias Newton MD [address] [place] [address] PCP - General 02/27/11
--- OUTSIDE RECORDS SUMMARY | 2025-08-07 10:10 | XMS_ITS | Encounter Summary ---
Author Organization [facility] Address [address] [place] [address]. [place] [address] Care Team Providers Care Floor Supervisor Name Role Phone Lara Colbert MD Primary Care Provider [phone] Lara Colbert MD Unavailable [phone] Henry Pratt MD Unavailable Henry Pratt MD Unavailable Encounter Details Date Type Department Care Team (Late st Contact Info) Description 07/01/2025 Telephone [facility] [address] [place] [address] Juana Calvo, JARET Social History Tobacco Use Types Packs/Day Years [...] on file Legal Sex Female 4:39 AM REHAB AID Gender Identity Not on file Sexual Orientation Not on file Occupation Industry Job Start Date Job End Date retired Not on file Not on file Not on file Not on file Not on file Not on file Not on file documented as of this encounter Miscellaneous Notes * Telephone Encounter - Juana Calvo RN - 07/01/2025 3:32 PM CDT Regulatory Scientist has spoken with Pat regarding planned procedure with IR via telephone. Pat acknowledges understanding of pre-procedure instructions. I have provided Pat with IR number for questions or concerns. A documented H&P exam is noted in patient EMR with the date 06/23. Provider name Singh. Juana Cedeño RN, BSN Interventional Radiology Pattern Setter * Telephone Encounter - Juana Calvo RN - 07/01/2025 3:22 PM CDT INTERVENTIONAL RADIOLOGY INSTRUCTIONS You are scheduled for an upcoming procedure in the Interventional Radiology Department at [facility]. Date: July 02 Procedure: PORT Placement Address: [facility]vinder Parisi [facility] [address] Check into the Interventional Radiology Department at: 08:00 am On the date of procedure, please do not eat any food after: MIDNIGHT (8 hours before arrival time) On the date of this procedure, you may drink clear liquids until 06:00 am (2 hours before arrival time) Clear liquid examples are: water, apple juice, black coffee or tea (no cream, sugar or milk), Gatorade & Jello. We suggest wearing loose, comfortable clothing. You will need to have someone available to drive you home. A ride share service ([employer], [employer], [employer]) does not qualify for transportation home unless you have another adult accompanying you home. We recommend that you do not not drive, or operate heavy machinery for 24 hours after receiving sedation for this procedure. We recommend a responsible adult stay with you for 6 hours after discharge to home. Please bring a list of your current medications. Morning medications may be taken on the day of your procedure with sips of clear fluids (please do not eat). Please do not take your diabetic medications. Please DO NOT take your prescribed METFORMIN on the morning of this procedure SHOWERING BEFORE SURGERY Purchase 8 ounces of antiseptic surgical soap called 4% CHG. Common name brands of this soap are Hibiclens and Exidine. You might have been given some from the clinic. You can find it at your local pharmacy, if you have trouble locating it, ask the pharmacist to helpyou. It is also free of charge for all surgical patients at a [facility] pharmacy near you. Please take 2 showers before surgery: One the night before surgery and one the morning of surgery. Wash your hair and body with your regular shampoo and soap. Make sure you rinse the shampoo and soap from your hair and body. Apply about 2-4 ounces of surgical soap gently on your skin from your chin to your toes. Do not usethis soap on your face, head, or groin. Let the surgical soap stay on your skin for at least 1 minute before rinsing. After the shower, your skin may feel dry, but do not use any lotions, creams, moisturizers, deodorants, or fragrances. Do not shave within 12 inches of your surgical site for at least 3 days before surgery. Shaving canmake small cuts in the skin. This puts you at a higher risk of infection. It is required that you have a documented pre-operative exam (H&P) by a health care provider inthe 30 day period prior to your scheduled procedure. If you plan having this pre-operative exam done outside of the [facility] system, please fax this documentation to [phone]. Please plan for 2-3 hours spent in the Interventional Radiology Department. This will include: Pre-procedure Time Procedure Time Recovery Time. Please confirm that you have received these instructions by replying to this iPrint[employer] message, or ifyou have any questions, please call the Interventional Radiology team at [phone]. Thank you! Juana Cedeño Interventional Radiology Intake Nurse Coordinator ' documented in this encounter Plan of Treatment Not on file documented as of this encounter Visit Diagnoses Not on filedocumented in this encounter Care Teams Floor Supervisor Relationship Specialty Start Date End Date Lara Colbert MD [address] [address] PCP - General Family Medicine 02/07/22 Lara Colbert MD [address] [address] Assigned PCP 04/02/22 Henry Pratt MD [address] [place] [address] Cardiovascular Disease 02/10/25 Henry Pratt MD [address] [place] [address] Assigned Heart and Vascular Provider 04/17/25 documented as of this encounter
[2025-08-07 11:04] LABS: Appearance Urine Clear (Clear)
--- NOTE | 2025-08-07 11:18 | CRLHL7_ITS ---
For Patients: As a result of the Cures Act, medical imaging exams and procedure reports are released immediately into your electronic medical record. You may view this report before your referring provider. If you have questions, please contact your health care provider. Indication: shortness of breath Technique: PA and lateral views of the chest. Comparison: None. Findings: Right internal jugular chest port with catheter tip at the superior cavoatrial junction. Low lung volumes. Normal cardiomediastinal silhouette. Subtle mild patchy bilateral airspace opacities. No pleural effusion or visualized pneumothorax. Impression: Subtle mild patchy bilateral airspace opacities may represent atypical infection or inflammation. Dictated by Hollis Ambrosio MD @ 08/07/2025 11:57:29 AM (Electronically Signed)
--- NOTE | 2025-08-07 11:23 | ED.GENADULT ---
HPI - General Adult General Chief complaint: Weakness Stated complaint: Needs transfusion Time Seen by Provider: 08/07/25 10:52 Source: patient Mode of arrival: ambulatory History of Present Illness HPI narrative: 85-year-old female with a history of myelodysplastic syndrome presents to the emergency department for evaluation of shortness of breath and fatigue referred by her oncologist whom she saw earlier today. She has been running low-grade fevers for the past couple of days, has noticed swollen ankles but no other localizing symptoms of infection. No productive cough. No known illness exposures. She has had transfusions at least twice before through our infusion center, but managed by [facility]. Has never had an evaluation by 1 of our providers. Primary care is typically through [facility] physicians as well and we do not have access to those records. She has never had a transfusion reaction. Her provider attempted to just send over orders today for the infusion center but we do not have availability. She does have an infusion scheduled for Sunday which is 3 days from now. She is requesting blood transfusion. She has received platelets in the past as well but is uncertain if she would require that was. She had blood work yesterday through [facility] that she can pull up on her phone for me. No history of neutropenic fevers in the past. Fevers have been up to 100.3 at home. Last dose of Tylenol was at about 6:30 p.m. last night. She has not noticed any signs of blood loss vaginally, urinary or GI source. Does not take any anticoagulants. No recent injury or trauma. She reports that she had a thorough cardiac workup back in February. From what she describes there was a stress test, echo and EKG performed. She reports that these were normal. This was done as part of a fatigue workup prior to discovery of a myelodysplastic syndrome. She reports her past medical history is notable for diabetes and hypertension. Home meds are metformin 500 b.i.d. and losartan 25 mg daily. She does have some p.r.n. medications from her oncologist for diarrhea and nausea which she reports that she rarely uses. She is also on prophylactic acyclovir as it sounds has p.r.n. albuterol and her chemotherapy treatment, has completed 1 cycle thus far. She does have some scanned records available from her oncologist. ROS is notable for the vague fatigue as stated above, otherwise denies times 12 systems. Has not noticed any problems with her port. Related Data Home Medications ?Medication ?Instructions ?Recorded ?Confirmed albuterol sulfate 90 mcg/actuation 2 puff inhalation Q6H PRN wheezing 05/27/25 08/07/25 aerosol inhaler (Ventolin HFA) fluticasone propionate 220 1 puff inhalation 05/27/25 mcg/actuation HFA aerosol inhaler losartan 25 mg tablet 25 mg PO DAILY 05/27/25 08/07/25 metformin 500 mg tablet 500 mg PO BID 05/27/25 08/07/25 acyclovir 400 mg tablet 400 mg PO BID 08/07/25 08/07/25 allopurinol 300 mg tablet 300 mg PO BID 08/07/25 08/07/25 posaconazole 100 mg tablet,delayed mg PO 08/07/25 release Previous Rx's ?Medication ?Instructions ?Recorded azithromycin 250 mg tablet 250 mg PO DAILY 4 days #4 tabs 08/07/25 Allergies Allergy/AdvReac Type Severity Reaction Status Date / Time adhesive Allergy Intermediate Verified 08/07/25 10:25 amoxicillin Allergy Mild Gastrointestinal Verified 08/07/25 10:25 Upset [facility] Medical History (Updated 08/07/25 @ 13:56 by Geeta Darby MD) Myelodysplastic syndrome ?D46.9 - Myelodysplastic syndrome, unspecified (ICD-10) Social History Smoking Status: Unknown if ever smoked Exam Const: Vital Signs, click to edit/add: Vital Signs - 24 hr 08/07/25 10:12 08/07/25 11:30 08/07/25 12:15 Temperature 99.5 F Pulse Rate 87 77 Pulse Rate [Pulse Oximeter] 80 Respiratory Rate 16 Blood Pressure Blood Pressure [Le ft Upper Arm] 193/71 H Pulse Oximetry 96 95 93 Oxygen Delivery Me thod Room Air 08/07/25 12:39 08/07/25 12:45 08/07/25 12:55 Temperature 97.7 F Pulse Rate 80 77 77 Pulse Rate [Pulse Oximeter] Respiratory Rate 21 16 20 Blood Pressure 189/76 H 187/78 H Blood Pressure [Le ft Upper Arm] Pulse Oximetry 93 92 96 Oxygen Delivery Me thod Room Air 08/07/25 12:56 08/07/25 13:00 08/07/25 13:00 Temperature 98.1 F Pulse Rate 76 76 74 Pulse Rate [Pulse Oximeter] Respiratory Rate 22 20 12 Blood Pressure 187/78 H 178/75 H Blood Pressure [Le ft Upper Arm] Pulse Oximetry 94 94 97 Oxygen Delivery Me thod Room Air 08/07/25 13:03 08/07/25 13:14 08/07/25 13:15 Temperature 98.8 F Pulse Rate 77 71 71 Pulse Rate [Pulse Oximeter] Respiratory Rate 24 16 19 Blood Pressure 178/75 H 180/71 H Blood Pressure [Le ft Upper Arm] Pulse Oximetry 96 95 95 Oxygen Delivery Me thod Room Air 08/07/25 13:16 08/07/25 13:44 08/07/25 14:14 Temperature 98.8 F 98.1 F Pulse Rate 72 79 79 Pulse Rate [Pulse Oximeter] Respiratory Rate 20 16 Blood Pressure 180/71 H 184/75 H 185/77 H Blood Pressure [Le ft Upper Arm] Pulse Oximetry 95 98 98 Oxygen Delivery Va thod Room Air Room Air 08/07/25 14:40 08/07/25 15:10 Temperature 97.6 F 98.7 F Pulse Rate 83 76 Pulse Rate [Pulse Oximeter] Respiratory Rate 20 20 Blood Pressure 197/82 H 180/72 H Blood Pressure [Le ft Upper Arm] Pulse Oximetry 97 95 Oxygen Delivery Va thod Room Air Room Air Documenting provider has reviewed patient's vital signs: yes Common normals: no apparent distress General appearance: well kempt HENMT: Common normals: normocephalic, moist oral mucous membranes and oropharynx normal Head and scalp: normocephalic Face and sinus: normal facial exam Mouth: oral and palatal mucosa normal Eye: Common normals: conjunctivae normal General eye: normal appearance of both eyes Conjunctiva: conjunctiva(e) normal Neck & C-Spine: Common normals: full ROM and no lymphadenopathy General: normal visual inspection Resp: Common normals: normal respiratory effort, no use of accessory muscles and clear to auscultation bilaterally Auscultation: clear to auscultation bilaterally Cardio: Common normals: regular rate, regular rhythm and S2 normal heart sound Rate: regular rate Rhythm: regular rhythm Heart sounds: S2 normal Other: Decrescendo systolic ejection murmur noted. 2/6. No gallop GI: Common normals: Normal to inspection, nondistended, normoactive bowel sounds present, soft to palpation, non-tender, no hepatosplenomegaly and no masses Palpation: soft and no hepatosplenomegaly Extremity: Other: 1+ equal symmetric bilateral lower tibial edema. Neuro: Common normals: moves all extremities Speech: speech normal Motor exam: strength 5/5 throughout Psych: Common normals: speech normal Appearance: well kempt Attitude: engaged Activity/motor behavior: appropriate eye contact Speech: normal speech Insight: insight good Judgement: judgment good Skin: Common normals: no rashes or lesions noted General skin exam: no rashes or lesions noted Course Course ED Course: 85-year-old female with myelodysplastic syndrome presenting with anemia secondary to known treatment as well as neutropenia. She has a low-grade fever but not a true fever. No obvious source of acute illness. Feeling fatigued, has been transfusion dependent now for the past couple of months. I am assuming that her fatigue and shortness of breath are from symptomatic anemia. She does have some signs of some mild heart failure including a systolic murmur, pedal edema and dyspnea on exertion. I would like to get a chest x-ray and EKG because of this. Because of the borderline fever and neutropenia, I do think it is a good idea that we get some blood cultures both peripherally and from her port as well as run some viral swabs and I urine culture as well as chest x-ray. Patient was agreeable to this. I let her know that these will not slow down her treatment today but it may take some time to find an appropriate unit to crossmatch and work for her due to multiple prior recent transfusions. Rationale is reviewed. I did double check with the cancer center and she does not need irradiated cells, just leukocyte reduce which is the only type of packed cells offered at our facility. Will crossmatch and transfuse 1 unit while week complete the cardiac and infectious workup. Verbal consent is obtained, risks and benefits discussed. Reevaluation(s) Time of Reevaluation #1: 15:14 Reevaluation #1: Counseled patient on all findings. Unit of blood is nearly done transfusing. Neutropenic as expected a and anemic. 1 unit of packed cells been given. X-ray was suspicious for bilateral atypical appearing infiltrates. She was able to retrieve warmer home medications and is able to show me that she is taking prophylactic levofloxacin. But with her recent low-grade fevers, shortness of breath and fatigue I do recommend that we treat with azithromycin as well for a short course. She will be given 500 mg p.o. x1 here in the ED the continued on 250 mg once daily for an additional 4 days. She will keep taking her level floxacillin as well as her antiviral acyclovir. She will keep her follow-up blood work next week as planned with her oncology team. Any true fevers, severe shortness of breath or other worsening would warrant my ED evaluation in the interim. We also did discuss the cardiac murmur that I heard as well as the swelling in her legs. I do think that she is having some cardiac strain from the anemia but there were no overwhelming signs of heart failure today. If she has worsening or persistent symptoms, a repeat echo could be considered. She is to follow up with her primary care or oncology team if this occurs. She verbalized understanding and agreement and has no further questions. Vital Signs Vital signs: Initial Vital Signs Temperature 99.5 F 08/07/25 10:12 Temperature Source Temporal Artery Scan 08/07/25 10:12 Pulse Rate 80 08/07/25 10:12 Respiratory Rate 16 08/07/25 10:12 Blood Pressure 193/71 H 08/07/25 10:12 Blood Pressure Mean 111 H 08/07/25 10:12 Blood Pressure Position Sitting 08/07/25 10:12 Pulse Oximetry 96 08/07/25 10:12 Oxygen Delivery Method Room Air 08/07/25 10:12 Vital Signs Temperature 99.5 F 08/07/25 10:12 Pulse Rate 80 08/07/25 10:12 Respiratory Rate 16 08/07/25 10:12 Blood Pressure 193/71 H 08/07/25 10:12 Pulse Oximetry 96 08/07/25 10:12 Oxygen Delivery Method Room Air 08/07/25 10:12 Temperature 98.7 F 08/07/25 15:10 Pulse Rate 76 08/07/25 15:10 Respiratory Rate 20 08/07/25 15:10 Blood Pressure 180/72 H 08/07/25 15:10 Pulse Oximetry 95 08/07/25 15:10 Oxygen Delivery Method Room Air 08/07/25 15:10 Medications Administered Medications: Generic Name Dose Route Start Last Admin Trade Name Freq PRN Reason Stop Dose Admin Sodium Chloride 250 ml 08/07/25 11:13 08/07/25 14:40 0.9 % Sodium Chloride 500 Ml IV 08/08/25 23:59 100 ml ONCE PRN Administration Discontinued Medications Generic Name Dose Route Start Last Admin Trade Name Marielena PRN Reason Stop Dose Admin Acetaminophen 1,000 mg 08/07/25 11:13 08/07/25 11:58 Acetaminophen 500 Mg Tablet PO 08/07/25 11:14 1,000 mg ONCE ONE Administration Azithromycin 500 mg 08/07/25 13:53 08/07/25 14:11 Azithromycin 250 Mg Tablet PO 08/07/25 13:54 500 mg ONCE ONE Administration Diphenhydramine HCl 25 mg 08/07/25 11:13 08/07/25 11:58 Diphenhydramine 25 Mg Capsule PO 08/07/25 11:14 25 mg ONCE ONE Administration Furosemide 20 mg 08/07/25 11:13 08/07/25 15:03 Furosemide 10 Mg/Ml Inj IV 08/07/25 11:14 20 mg ONCE ONE Administration Medical Decision Making Lab Data Lab results reviewed: Yes I reviewed the patient's lab results Lab results narrative: Neutropenic and anemic, as expected. Bed inflammatory markers, electrolytes and renal function do look very good. Urinalysis is not suspicious for occult infection. Viral swabs are negative Labs: Lab Results 08/07/25 08/07/25 08/07/25 Range/Units 10:53 11:00 11:20 WBC 0.65 L* (4.50-11.00) K/uL RBC 2.39 L (4.00-5.20) m/uL Hgb 8.0 L (12.0-16.0) gm/dL Hct 22.6 L (33.0-51.0) % MCV 95 (80-100) fL MCH 34 (26-34) pg MCHC 35 (32-36) gm/dL RDW Coeff of Get 20.6 H (11.5-15.5) % Plt Count 667 H (140-440) K/uL Neut % (Auto) 12.4 L (42.0-72.0) % Lymph % (Auto) 84.6 H (20-44) % Chester % (Auto) 1.5 (0.0-11.0) % Eos % (Auto) 0.0 (0.0-7.0) % Baso % (Auto) 1.5 (0.0-3.0) % Neut # (Auto) 0.10 L (1.7-7.0) K/uL Lymph # (Auto) 0.50 L (0.90-2.90) K/uL Chester # (Auto) 0.00 (0.00-0.90) K/UL Eos # (Auto) 0.00 (0.00-0.50) K/uL Baso # (Auto) 0.00 (0.00-0.30) K/uL Abs Immat Gran (auto) 0.00 (0.00-0.30) K/uL Imm/Tot Granulo (auto) 0.0 % Diff Slide Review Acceptable Review (Acceptable) Sodium 136 (135-149) mmol/L Potassium 4.0 (3.6-5.1) mmol/L Chloride 105 (96-114) mmol/L Carbon Dioxide 24 (20-32) mmol/L Anion Gap 7 (7-15) mEq/L BUN 9 (7-30) mg/dL Creatinine 0.6 (0.5-1.5) mg/dL Estimated Creat Clear 35.26 Estimated GFR 89 ml/min Glucose 124 H (60-115) mg/dL Lactate 1.2 (0.5-1.9) mmol/L Calcium 8.9 (8.4-10.6) mg/dL Total Bilirubin 0.5 (0.1-1.5) mg/dL AST 33 (12-35) U/L ALT 26 (4-35) U/L Alkaline Phosphatase 77 (40-150) U/L C-Reactive Protein 4.2 H (0.5-1.0) mg/dL NT-Pro-B Natriuret Pep 1610 H (See Note) pg/mL Total Protein 7.9 (6.0-8.3) g/dL Albumin 4.1 (3.3-5.0) g/dL Urine Color Yellow (Yellow) Urine Appearance Clear (Clear) Urine pH 7.0 (5.0-8.5) Ur Specific Mercer 1.010 (1.000-1.030) Urine Protein Negative (Negative) Urine Glucose (UA) Negative (Negative) Urine Ketones Negative (Negative) Urine Blood Negative (Negative) Urine Nitrite Negative (Negative) Urine Bilirubin Negative (Negative) Urine Urobilinogen 0.2 (0.2-1.0) Ur Leukocyte Esterase Negative (Negative) SARS-CoV-2 (PCR) (Negative) Influenza Type A (PCR) (Negative) Influenza Type B (PCR) (Negative) RSV (PCR) (Negative) POC Troponin I 0.01 (0.01-0.04) ng/ml Blood Type A Positive Antibody Screen NEGATIVE Crossmatch (AHG) See Detail 08/07/25 Range/Units 11:35 WBC (4.50-11.00) K/uL RBC (4.00-5.20) m/uL Hgb (12.0-16.0) gm/dL Hct (33.0-51.0) % MCV (80-100) fL MCH (26-34) pg MCHC (32-36) gm/dL RDW Coeff of Get (11.5-15.5) % Plt Count (140-440) K/uL Neut % (Auto) (42.0-72.0) % Lymph % (Auto) (20-44) % Chester % (Auto) (0.0-11.0) % Eos % (Auto) (0.0-7.0) % Baso % (Auto) (0.0-3.0) % Neut # (Auto) (1.7-7.0) K/uL Lymph # (Auto) (0.90-2.90) K/uL Chester # (Auto) (0.00-0.90) K/UL Eos # (Auto) (0.00-0.50) K/uL Baso # (Auto) (0.00-0.30) K/uL Abs Immat Gran (auto) (0.00-0.30) K/uL Imm/Tot Granulo (auto) % Diff Slide Review (Acceptable) Sodium (135-149) mmol/L Potassium (3.6-5.1) mmol/L Chloride (96-114) mmol/L Carbon Dioxide (20-32) mmol/L Anion Gap (7-15) mEq/L BUN (7-30) mg/dL Creatinine (0.5-1.5) mg/dL Estimated Creat Clear Estimated GFR ml/min Glucose (60-115) mg/dL Lactate (0.5-1.9) mmol/L Calcium (8.4-10.6) mg/dL Total Bilirubin (0.1-1.5) mg/dL AST (12-35) U/L ALT (4-35) U/L Alkaline Phosphatase (40-150) U/L C-Reactive Protein (0.5-1.0) mg/dL NT-Pro-B Natriuret Pep (See Note) pg/mL Total Protein (6.0-8.3) g/dL Albumin (3.3-5.0) g/dL Urine Color (Yellow) Urine Appearance (Clear) Urine pH (5.0-8.5) Ur Specific Mercer (1.000-1.030) Urine Protein (Negative) Urine Glucose (UA) (Negative) Urine Ketones (Negative) Urine Blood (Negative) Urine Nitrite (Negative) Urine Bilirubin (Negative) Urine Urobilinogen (0.2-1.0) Ur Leukocyte Esterase (Negative) SARS-CoV-2 (PCR) Negative SARS-CoV-2 (Negative) Influenza Type A (PCR) Negative PCR FLU A (Negative) Influenza Type B (PCR) Negative PCR FLU B (Negative) RSV (PCR) Negative PCR RSV (Negative) POC Troponin I (0.01-0.04) ng/ml Blood Type Antibody Screen Crossmatch (AHG) Imaging Data Chest x-ray: Attestation: I have reviewed the pertinent imaging results. My impression: Mild bilateral patchy infiltrates both lung wan. Radiologist's impression: Impression: Subtle mild patchy bilateral airspace opacities may represent atypical infection or inflammation. Dictated by Hollis Ambrosio MD @ 08/07/2025 11:57:29 AM ECG Data Attestation: I personally reviewed and interpreted this ECG as follows: Prior ECG tracings: not available for review Interpretation: Sinus rhythm with rate of 76. There is incomplete right bundle-branch block. No significant T-wave abnormalities. No signs of ischemia. Discharge Plan Discharge Clinical Impression: Symptomatic anemia, Atypical pneumonia Patient Disposition: Home w/ Parent or Adult Condition: Improved Instructions: Anemia (ED) Additional Instructions: As we discussed, your blood work looks reasonably reassuring. Your platelet counts were course much better today. You are still quite neutropenic. I do want you to continue on the antiviral and antibiotic regimens that have already been prescribed by your oncology team. We have obtained blood in urine cultures because of your low-grade fevers and will call you if these are unexpectedly positive. As discussed, your chest x-ray does show some mild infiltrates on both sides which are a little worrisome for a walking pneumonia. That combined with your low-grade fevers and just not feeling well does make me think that treatment is a good idea. I would like to add a 5 day course of azithromycin to the levoFloxin that you are already taking. You have already been given your 1st dose here in the emergency room today. Your next dose will be tomorrow afternoon. You will take 1 pill once daily for the next 4 days at home. We also discussed how I heard a heart murmur on your exam today and this combined with the swelling in your legs does make me concerned that your heart is struggling a little more to keep up. But this is mostly because of the anemia and how much harder your heart months work to sustain all of your other body processes. I am not detecting any signs of major heart failure. The EKG and blood work did not reveal any heart attack. If things continue to worsen, I would recommend that your oncology team order a repeat echo which is an ultrasound of the heart. Please follow-up with your oncology team for your next scheduled blood draw. If you start running higher fevers over 100.4, have severe weakness, severe shortness of breath or other alarming symptoms, please return to the emergency department. Activity Level: Activity as Tolerated Discharge Diet: Regular Prescriptions: New azithromycin 250 mg tablet 250 mg PO DAILY 4 Days Qty: 4 0RF Rx Instructions: Start on 08/08, 1st dose already given in the ED on 08/07 No Action metformin 500 mg tablet 500 mg PO BID losartan 25 mg tablet 25 mg PO DAILY fluticasone propionate 220 mcg/actuation HFA aerosol inhaler 1 puff inhalation albuterol sulfate [Ventolin HFA] 90 mcg/actuation HFA aerosol inhaler 2 puff INHALATION Q6H PRN (Reason: wheezing) acyclovir 400 mg tablet 400 mg PO BID allopurinol 300 mg tablet 300 mg PO BID posaconazole 100 mg tablet,delayed release (DR/EC) PO Follow Up/Referrals: Lara Colbert MD [Referring, Family Practice] Stand Alone Forms: [facility] Info Instructions
[2025-08-07 11:28] LABS: Lactate* 1.2 mmol/L (0.5-1.9)
[2025-08-07 11:31] LABS: Hematocrit* 22.6 % (33.0-51.0); Hemoglobin* 8.0 gm/dL (12.0-16.0); Immature Granulocytes Abs Auto 0.00 K/uL (0.00-0.30); Immature Granulocytes Pct Auto 0.0 %; Mean Corpuscular HGB Conc 35 gm/dL (32-36); Mean Corpuscular Hemoglobin 34 pg (26-34); Mean Corpuscular Volume 95 fL (80-100); RDW Coefficient of Variation % 20.6 % (11.5-15.5); Red Blood Count* 2.39 m/uL (4.00-5.20)
[2025-08-07 11:47] LABS: Albumin* 4.1 g/dL (3.3-5.0); Chloride* 105 mmol/L (96-114)
[2025-08-07 11:48] LABS: Potassium* 4.0 mmol/L (3.6-5.1); Sodium* 136 mmol/L (135-149)
[2025-08-07 11:50] LABS: Alanine Aminotransferase* 26 U/L (4-35); Aspartate Amino Transferase* 33 U/L (12-35); Blood Urea Nitrogen* 9 mg/dL (7-30); Creatinine* 0.6 mg/dL (0.5-1.5); Est. Creatinine Clearance* 35.26; Estimated Glomerular Filt Rate 89 ml/min
[2025-08-07 11:51] LABS: Alkaline Phosphatase* 77 U/L (40-150); Anion Gap 7 mEq/L (7-15); Bilirubin Total* 0.5 mg/dL (0.1-1.5); Calcium* 8.9 mg/dL (8.4-10.6); Carbon Dioxide* 24 mmol/L (20-32); Glucose* 124 mg/dL (60-115); Total Protein* 7.9 g/dL (6.0-8.3)
[2025-08-07 11:53] LABS: Lymphocytes Absolute Auto 0.50 K/uL (0.90-2.90); Slide Review Reflex Yes; White Blood Count* 0.65 K/uL (4.50-11.00)
[2025-08-07] MEDS: ACETAMINOPHEN 500 MG TABLET 1000 MG PO (11:58)
[2025-08-07 12:01] LABS: NT Pro B Type NatriureticPept* 1610 pg/mL (See Note)
[2025-08-07 12:03] LABS: Troponin, Point-of-Care* 0.01 ng/ml (0.01-0.04)
[2025-08-07 12:03] LABS: Slide Review Acceptable Review (Acceptable)
[2025-08-07 12:21] LABS: PCR FLU A Negative PCR FLU A (Negative); PCR FLU B Negative PCR FLU B (Negative); PCR RSV Negative PCR RSV (Negative); SARS PCR* Negative SARS-CoV-2 (Negative)
[2025-08-07] MEDS: AZITHROMYCIN 250 MG TABLET 500 MG PO (14:11)
[2025-08-07] MEDS: 0.9 % SODIUM CHLORIDE 500 ML 250 ML IV (14:40)
[2025-08-07] MEDS: FUROSEMIDE 10 MG/ML inj 20 MG IV (15:03)
[2025-08-07] MEDS: HEPARIN 500 UNIT/5 ML SYRINGE IVF (15:39)
== END 2025-08-07 15:49 | disposition home or self-care (01) ==
PROVIDERS: Emergency Provider Family Medicine
DX: J18.9 Pneumonia, unspecified organism (principal); D64.9 Anemia, unspecified; I45.10 Unspecified right bundle-branch block; R53.83 Other fatigue
CPT/HCPCS: 36415; 36430; 71046; 80053; 81003; 83605; 83880; 84484; 85025; 86140; 86850; 86900; 86901; 86922; 87040; 87086; 87631; 93005; 99284; 99285; A9270; J1642; J1938; J7030; P9016